=== PATIENT | male | born 1965 | race Caucasian/White ===

== ENCOUNTER → 2018-08-19 10:50 | Outpatient (CLI) | payer OTHER, SELFPAY ==
--- NOTE | 2018-08-19 10:52 | DI.RAD.S_ITS ---
PROCEDURE: XR CERVICAL SPINE 2V OR 3V INDICATIONS: neck pain, bilateral upper extremety numbness/weakness TECHNIQUE: 4 view(s) of the cervical spine were acquired. COMPARISON: None. FINDINGS: Bones: No fractures or dislocations to the C7 level. Levocurvature of the cervical spine noted. The lateral masses of C1 appear intact on the odontoid view. No suspicious bony lesions. Mild narrowing of the C4-C5 disc space. Straightening of the normal cervical lordosis. Diffuse mild facet arthropathy. Soft tissues: No prevertebral soft tissue swelling. Bilateral atheromatous carotid calcifications. IMPRESSION: Levocurvature and straightening of the normal cervical lordosis. Mild C4-C5 disc degeneration. Diffuse mild facet arthropathy. Dictated by: Kiet Mackenzie M.D. on 08/19/2018 at 12:53 Approved by: Kiet Mackenzie M.D. on 08/19/2018 at 12:55
== END ==
PROVIDERS: PCP Family Medicine; Visit Provider Family Medicine
DX: M50.321 Other cervical disc degeneration at C4-C5 level (principal); M47.812 Spondylosis without myelopathy or radiculopathy, cervical region; R20.0 Anesthesia of skin
CPT/HCPCS: 72040

== ENCOUNTER → 2018-08-27 09:27 | Outpatient (CLI) | payer OTHER, SELFPAY | PROVIDERS: PCP Family Medicine; Visit Provider Family Medicine | DX: M54.2 Cervicalgia (principal) | CPT/HCPCS: 95885; 95886; 95911 ==

== ENCOUNTER → 2018-08-28 09:46 | Outpatient (CLI) | payer OTHER, SELFPAY ==
--- NOTE | 2018-08-28 09:46 | DI.MRI.S_ITS ---
PROCEDURE: MR CERVICAL SPINE WO CON INDICATIONS: neck pain, numbness, weakness of both upper extremeties TECHNIQUE: Noncontrast sagittal T1 spin echo and T2 fast spin echo, sagittal STIR, foraminal oblique sagittal T2 fast spin echo, and axial gradient echo or T2 fast spin echo through the cervical spine. COMPARISON: [facility], CR, XR CERVICAL SPINE 2V OR 3V, 08/19/2018, 10:53. FINDINGS: Image quality: Excellent. Alignment and Curvature: There is straightening of cervical curvature; otherwise normal alignment. Bone Marrow: Marrow demonstrates normal overall signal. Spinal Cord: Visualized spinal cord has normal size and signal. No cerebellar tonsillar herniation. Paraspinous Soft Tissues: No paravertebral masses. Prevertebral soft tissues are normal in thickness. C2-C3: Normal appearance. C3-C4: Normal appearance. C4-C5: Mild loss of disc height and posterior disc bulge. The central canal is patent. Mild bilateral foraminal stenosis. C5-C6: Mild loss of disc height and disc desiccation. Circumferential disc bulge. The central canal is patent. No foraminal stenosis. C6-C7: Normal appearance. C7-T1: Normal appearance. IMPRESSION: 1. Mild degenerative disc disease in cervical spine. 2. No central canal stenosis. 3. Mild bilateral foraminal stenosis at L4-L5. Dictated by: Luly Donovan M.D. on 08/28/2018 at 16:34 Approved by: Luly Donovan M.D. on 08/28/2018 at 16:40
== END ==
PROVIDERS: PCP Family Medicine; Visit Provider Family Medicine
DX: M50.321 Other cervical disc degeneration at C4-C5 level (principal); M48.02 Spinal stenosis, cervical region; R20.0 Anesthesia of skin; M62.81 Muscle weakness (generalized)
CPT/HCPCS: 72141

== ENCOUNTER → 2018-10-22 10:16 | Outpatient (CLI) | payer OTHER, SELFPAY ==
[2018-10-22 11:07] LABS: Alanine Aminotransferase 30 IU/L (21-72); Albumin 4.7 g/dL (3.5-5.0); Albumin Globulin Ratio 1.4 (1.0-2.8); Alkaline Phosphatase 79 U/L (38-126); Aspartate Aminotransferase 25 IU/L (17-59); BUN Creatinine Ratio 14.4 (6-22); Bilirubin Total 0.5 mg/dL (0.2-1.3); Blood Urea Nitrogen 13 mg/dL (9-20); C-Reactive Protein Quant 0.9 mg/dL (<1.0); Calcium 9.7 mg/dL (8.4-10.2); Carbon Dioxide 29 mmol/L (22-32); Chloride 102 mmol/L (98-107); Cholesterol 290 mg/dL (140-199); Estimated Glomerular Filt Rate > 60.0 mL/min (>60); Globulin 3.4 g/dL (1.7-4.1); Glucose 100 mg/dL (70-100); HDL Cholesterol 31 mg/dL (40-60); HEMOLYSIS < 15 (0-50); LDL Cholesterol Calculated 227 mg/dL (<100); Potassium 4.4 mmol/L (3.4-5.1); Sodium 142 mmol/L (137-145); Total Protein 8.1 g/dL (6.3-8.2); Triglycerides 161 mg/dL (35-150); Uric Acid 6.9 mg/dL (3.5-8.5)
[2018-10-22 11:10] LABS: Rheumatoid Factor < 8.6 IU/mL (<12.0)
[2018-10-22 11:11] LABS: Erythrocyte Sedimentation Rate 6 MM/HR (0-15)
[2018-10-22 11:12] LABS: Add Manual Diff / Slide Review NO; Basophils Absolute Auto 0 /uL (0-100); Basophils Percent Auto 0.4 % (0-2); Eosinophils Absolute Auto 200 /uL (0-450); Eosinophils Percent Auto 2.1 % (2-4); Hematocrit 48.5 % (41-53); Hemoglobin 16.7 g/dL (13.5-17.5); Lymphocytes Absolute Auto 2200 /uL (1100-4500); Lymphocytes Percent Auto 19.7 % (25-40); Mean Corpuscular HGB Conc 34.5 % (30-36); Mean Corpuscular Hemoglobin 30.7 PG (26-34); Monocytes Absolute Auto 1000 /uL (0-900); Monocytes Percent Auto 8.9 % (3-14); Neutrophils Absolute Auto 7600 /uL (1500-7000); Neutrophils Percent Auto 68.9 % (50-75); Platelet Count 279 X10^3/uL (150-400); Red Blood Cell Count 5.44 X10^6/uL (4.5-5.9); Red Cell Distribution Width 14.1 % (11.6-14.8)
[2018-10-22 11:32] LABS: Thyroid Stimulating Hormone 1.05 uIU/mL (0.47-4.68)
[2018-10-22 11:34] LABS: Prostate Specific Antigen Scrn 1.61 ng/mL (0.1-4.0)
== END ==
PROVIDERS: PCP Family Medicine; Visit Provider Family Medicine
DX: E78.5 Hyperlipidemia, unspecified (principal); Z12.5 Encounter for screening for malignant neoplasm of prostate; Z13.0 Encounter for screening for diseases of the blood and blood-forming organs and certain disorders involving the immune mechanism; Z13.29 Encounter for screening for other suspected endocrine disorder; Z13.21 Encounter for screening for nutritional disorder; K51.018 Ulcerative (chronic) pancolitis with other complication
CPT/HCPCS: 36415; 80053; 80061; 84443; 84550; 85025; 85651; 86140; 86430; G0103

== ENCOUNTER 2019-01-16 20:03 | Observation (INO) | payer OTHER, SELFPAY ==
[2019-01-16] VITALS (7 sets, daily range): BP systolic 116–168; BP diastolic 87–103; PULSE 70–99; RESP 14–22; TEMP 36.5–36.8; O2SAT 93–99; BMI 30.8
--- NOTE | 2019-01-16 20:22 | DI.CT.S_ITS ---
PROCEDURE: CT HEAD/BRAIN WO CON INDICATIONS: cva TECHNIQUE: Noncontrast 4.5 mm thick angled axial sections acquired from the foramen magnum to the vertex, with coronal and sagittal reformats. For radiation dose reduction, the following was used: automated exposure control, adjustment of mA and/or kV according to patient size. COMPARISON: None. FINDINGS: Image quality: Excellent. CSF spaces: Basal cisterns are patent. No extra-axial fluid collections. Ventricles are normal in size and shape. Brain: No midline shift. No intracranial masses or hemorrhage. Vargas-white matter interface is normal. Skull and face: Calvarium and visualized facial bones are intact, without suspicious lesions. Sinuses: Visualized sinuses and mastoids are clear. IMPRESSION: No acute intracranial abnormality. These findings were discussed with the referring provider Dr. Jarod Berger by telephone by Dr. Gudino at 8:43 PM on 01/16/2019. Dictated by: Rikki Gudino M.D. on 01/16/2019 at 20:41 Approved by: Rikki Gudino M.D. on 01/16/2019 at 20:48
--- NOTE | 2019-01-16 20:23 | DI.CT.S_ITS ---
PROCEDURE: CT ANGIO HEAD AND NECK INDICATIONS: cva TECHNIQUE: Pre-contrast 4.5 mm thick sections acquired from the foramen magnum to the vertex. After the administration of intravenous contrast, 1 mm thick sections acquired from the aortic arch through the [place]. Post-contrast 4.5 mm thick sections then re-acquired from the foramen magnum to the vertex. 3-dimensional [id number]-[id number] (MIP) and/or volume rendering reformats were acquired of the central intracranial vasculature and neck separately. COMPARISON: [facility], CT, CT HEAD/BRAIN WO CON, 01/16/2019, 20:15. FINDINGS: Image quality: Excellent. BRAIN: CSF spaces: Ventricles are normal in size and shape. Basal cisterns are patent. No extra-axial fluid collections. Brain: No midline shift. No intracranial bleeds or masses. Vargas-white matter interface appears intact. Skull and face: Calvarium and facial bones appear intact, without suspicious lesions. Orbits appear normal. Sinuses: Bilateral maxillary sinus mucous thickening. HEAD CT ANGIOGRAPHY: Anterior circulation: Intracranial internal carotid arteries are normal in size and flow. The flow within the paired anterior cerebral arteries is normal and symmetric. The flow within the middle cerebral arteries is normal and symmetric. The anterior communicating artery is seen. No aneurysms are seen. There is calcified plaque of the intracranial vasculature. Posterior circulation: Visualized portions of the vertebral arteries demonstrate normal caliber, and join to form a normal appearing basilar artery. The right posterior cerebral artery receives the majority of its blood flow from the right posterior communicating artery, with the P1 segment of the right posterior commuting artery (from the basilar artery) being diminutive in size. Flow within the posterior cerebral arteries is otherwise normal and symmetric. No aneurysms are seen. There is calcified plaque of the intracranial vasculature. NECK CT ANGIOGRAPHY: Carotid system: The great vessels demonstrate a conventional anatomy as they arise from the aortic arch. The origins of the common carotid arteries appear patent. The common carotid arteries demonstrate normal caliber and courses. The bifurcation regions are both widely patent but demonstrate calcified and noncalcified plaque. The internal carotid arteries demonstrate normal calibers and courses. Posterior circulation: The origins of the vertebral arteries both appear widely patent. The more superior extracranial portions of both vertebral arteries also demonstrate normal courses and calibers. They join to form a normal appearing basilar artery. Soft tissues: Bilateral dependent atelectasis with upper lobe emphysematous changes. No pneumothorax. There is a 2.0 cm hypoattenuating left thyroid nodule. Bones: Mild multilevel degenerative changes of the cervical spine. IMPRESSION: 1. No acute intracranial abnormality. 2. The right posterior cerebral artery receives the majority of its blood flow from the right posterior communicating artery, with the P1 segment of the right posterior cerebral artery (arising from the basilar artery) being diminutive in size. Otherwise, no aneurysms, stenoses, or occlusions of the intracranial vasculature noted. 3. No aneurysms, stenoses, or occlusions of the cervical carotid and vertebral arteries noted. 4. 2.0 cm left thyroid nodule. Recommend followup thyroid ultrasound for further evaluation. Any quantitative measurements of stenosis were performed using NASCET criteria. Dictated by: Rikki Gudino M.D. on 01/16/2019 at 22:09 Approved by: Rikki Gudino M.D. on 01/16/2019 at 22:26
[2019-01-16 20:41] LABS: Add Manual Diff / Slide Review NO; Basophils Absolute Auto 0 /uL (0-100); Basophils Percent Auto 0.2 % (0-2); Eosinophils Absolute Auto 300 /uL (0-450); Eosinophils Percent Auto 3.1 % (2-4); Hematocrit 45.5 % (41-53); Hemoglobin 15.6 g/dL (13.5-17.5); Lymphocytes Absolute Auto 3000 /uL (1100-4500); Lymphocytes Percent Auto 29.8 % (25-40); Mean Corpuscular HGB Conc 34.3 % (30-36); Mean Corpuscular Hemoglobin 30.1 PG (26-34); Mean Corpuscular Volume 87.7 fL (80-100); Monocytes Absolute Auto 1100 /uL (0-900); Monocytes Percent Auto 11.2 % (3-14); Neutrophils Absolute Auto 5700 /uL (1500-7000); Neutrophils Percent Auto 55.7 % (50-75); Platelet Count 273 X10^3/uL (150-400); Red Blood Cell Count 5.19 X10^6/uL (4.5-5.9); Red Cell Distribution Width 14.3 % (11.6-14.8); White Blood Cell Count 10.1 X10^3/uL (4.5-11.0)
[2019-01-16] MEDS: SODIUM CHLORIDE 0.9% 1,000 ML 150 ML IV (20:52)
[2019-01-16] MEDS: ASPIRIN 81 MG TAB 324 MG PO (20:52)
[2019-01-16 20:54] LABS: BUN Creatinine Ratio 16.3 (6-22); Blood Urea Nitrogen 13 mg/dL (9-20); Calcium 9.3 mg/dL (8.4-10.2); Carbon Dioxide 25 mmol/L (22-32); Chloride 104 mmol/L (98-107); Estimated Glomerular Filt Rate > 60.0 mL/min (>60); Glucose 98 mg/dL (70-100); HEMOLYSIS 33 (0-50); Sodium 139 mmol/L (137-145)
[2019-01-16 21:25] LABS: Prothrombin Time 11.2 SECONDS (10.1-12.7)
--- NOTE | 2019-01-16 21:27 | PC.NURSE ---
steady gate whem ambulateing to restroom
[2019-01-16 21:28] LABS: PTT Partial Thromboplastin Tim 31 SECONDS (26.4-36.2)
--- NOTE | 2019-01-16 21:29 | PC.NURSE ---
Pt states I don't have double vision anymore, my eyes just feel heavy, it's hard to explain. Provider notified and went to pt room.
[2019-01-16 21:38] LABS: Urine Amphetamines Negative (Negative); Urine Barbiturates Negative (Negative); Urine Benzodiazepines Negative (Negative); Urine Cocaine Negative (Negative); Urine MDMA Negative (Negative); Urine Methadone Negative (Negative); Urine Methamphetamines Negative (Negative); Urine Morphine/Opi cutoff 2000 Negative (Negative); Urine Oxycodone Negative (Negative); Urine Phencyclidine Negative (Negative); Urine Tetrahydrocannabinol Negative (Negative); Urine Tricyclic Antidepressant Negative (Negative)
[2019-01-16 21:57] LABS: Appearance Urine UA CLEAR; Bacteria Urine None Seen; Bilirubin Urine UA NEGATIVE (NEGATIVE); Color Urine UA YELLOW; Glucose Urine UA NEGATIVE (Negative); Ketones Urine UA NEGATIVE (NEGATIVE); Leukocyte Esterase Urine UA NEGATIVE (NEGATIVE); Nitrite Urine UA NEGATIVE (Negative); Occult Blood Urine UA NEGATIVE (Negative); Protein Urine UA NEGATIVE (Negative); RBC Urine None Seen (0-5/HPF); Specific Gravity Urine UA <=1.005 (1.000-1.035); Urobilinogen Urine UA 0.2 E.U./dL (0.2); pH Urine UA 6.5 (4.5-8.0)
[2019-01-16 22:02] LABS: WBC Urine 0-1/HPF (0-5/HPF)
[2019-01-16 22:03] LABS: Culture Indicated Urine Cult Not Indicated; Urine Comments Microscopic Normal
--- NOTE | 2019-01-16 23:31 | DI.ECHO.S_ITS ---
[facility] +---------+ [facility] +---------+ : : [address] [place] : : : : [id number] : : : : Phone: [phone]+ Echocardiogram Report + + :Name: ARIANNA VIDAL Study Date: 01/17/2019 Height: 67 in : :[facility] Exam Location: IS Weight: 196 lb : : Gender: Male BSA: 2.0 m2 : :: 1965 Age: 53 yrs BP: 116/91 mmHg: :Reason For Study: Stroke : :Ordering Physician: Puja : :Hospitalist Performed By: Nory Page : :Referring: WENDY NAGY : + + Interpretation Summary 1) Normal left ventriuclar size, thickness, wall motion, and systolic function (EF 55-60%). 2) Normal right ventricular size and function. 3) No significant valvular abnormalities. 4) Injection of contrast documented an interatrial shunt. 5) No prior Ecoh available for comparison. If the patient truly had a cryptogenic TIA or CVA, recommend cardiology consult for NATALIO and PFO closure. Procedure: A two-dimensional transthoracic echocardiogram with color flow and Doppler was performed. The study quality was technically adequate. There is no prior echocardiogram noted for this patient. A saline contrast injection was performed to assess for cardiac shunting. The patient was in normal sinus rhythm during the exam. The patient had occasional PVCs during the exam. The patient had occasional PACs during the exam. Left Ventricle: The left ventricle is normal in size. There is normal left ventricular wall thickness. The ejection fraction is estimated to be 55-60%. Left ventricular systolic function is normal. There are no focal wall motion abnormalities. Diastolic parameters suggest probable normal left ventricular diastolic function and normal filling pressures. Right Ventricle: The right ventricle is normal in size and function. Atria: The left atrium is moderately dilated. Right atrial size is normal. Injection of contrast documented an interatrial shunt. Mitral Valve: The mitral valve is normal in structure and function. There is trace mitral regurgitation. Aortic Valve: The aortic valve is trileaflet. The aortic valve opens well. There is no aortic valve stenosis. No aortic regurgitation is present. Tricuspid Valve: The tricuspid valve is normal in structure and function. There is trace tricuspid regurgitation. The right ventricular systolic pressure is estimated to be at least 24 mmHg based on an estimated right atrial pressure of 8 mm Hg. Pulmonic Valve: The pulmonic valve is not well seen, but is grossly normal. There is a trace or physiologic amount of pulmonic regurgitation. Great Vessels: The aortic root is normal size. The ascending aorta is at the upper limits of normal in size. The pulmonary artery is not well visualized, but is probably normal size. The IVC is dilated (diameter is greater than 2.1 cm) yet it collapses greater than 50% with a sniff. This suggests a right atrial pressure of 8 mm Hg. Pericardium/ Pleura There is no pericardial effusion. There is no pleural effusion. MMode/2D Measurements & Calculations LVIDd: 4.9 cm LVOT diam: 2.3 cm LVIDs: 3.1 cm Ao root diam: 3.3 cm FS: 36.7 % asc Aorta Diam: 3.4 cm EPSS: 0.50 cm IVSd: 0.84 cm LVPWd: 0.75 cm LV jeffries. diameter/BSA (cm/m^2): 2.4 LV sys. diameter/BSA (cm/m^2): 1.5 LA A2 area: 26.9 cm2 RA long axis: 5.4 cm LA A4 area: 20.4 cm2 RA area: 19.4 cm2 LA length (vol): 5.7 cm RA vol: 59.2 ml LA vol: 81.7 ml RA : 29.5 ml/m2 LA vol index: 40.8 ml/m2 IVC diam: 2.5 cm RVD1 (basal): 3.8 cm RVD2 (mid): 3.2 cm TAPSE: 2.2 cm Doppler Measurements & Calculations Ao V2 max: 141.8 cm/sec LVOT Max Saúl: 86.8 cm/sec Ao V2 mean: 105.5 cm/sec LV V1 max P.0 mmHg Ao max P.0 mmHg LV V1 VTI: 16.8 cm Ao mean P.7 mmHg KIANA(I,D): 2.7 cm2 Ao V2 VTI: 26.5 cm KIANA(V,D): 2.6 cm2 sev ratio: 0.63 KIANA indexed to BSA (cm^2/m^2): 1.3 MV E max saúl: 60.8 cm/sec TR max saúl: 201.8 cm/sec MV A max saúl: 53.9 cm/sec TR max P.3 mmHg MV E/A: 1.1 PA V2 max: 75.7 cm/sec Med Peak E' Saúl: 8.6 cm/sec PA V2 mean: 56.3 cm/sec E/E' med: 7.1 PA mean P.3 mmHg Lat Peak E' Saúl: 12.7 cm/sec PA Accel Time: 0.08 sec E/E' lat: 4.8 E/e' average: 5.9 MV dec time: 0.24 sec MV P1/2t: 70.4 msec MV P1/2t max saúl: 59.5 cm/sec SV(LVOT): 70.7 ml MVA(P1/2t): 3.1 cm2 Reading Physician:03:17 PM
[2019-01-17] MEDS: SODIUM CHLORIDE 0.9% 1,000 ML 150 ML IV ×2 (00:19→07:00)
--- NOTE | 2019-01-17 01:30 | ED.NEUROSD ---
HPI - Neuro Symptoms/Deficit General Chief Complaint: Neuro Symptoms/Deficit Stated Complaint: double vision about an hour Time Seen by Provider: 01/16/19 20:23 Source: patient and EMS Mode of arrival: EMS Limitations: no limitations History of Present Illness HPI Narrative: 53-year-old male smoker with history of hypertension presents by EMS for evaluation of double vision which started about 1 hour ago at 7:15 p.m. patient is activated as code stroke and taken directly to CT given the presence of neurologic symptoms 1 hour from time of onset. Further questioning would suggest the patient has had multiple episodes over the past week or 2 where his right hand, and perhaps both have felt a bit clumsy and he has dropped items. Currently he feels none of the symptoms. He denies recent injury nor fever or chills. He denies any trouble with blurring of vision, trouble with speech, finding words or definite weakness of his extremities. Onset (ago): minute(s) Last Observed Normal: 19:15 Timing confirmed by: spouse and family member Location: other History of same: No Severity: mild Context: sudden onset On Anticoagulants: No Treatments Prior to Arrival: none Related Data Home Medications Medication Instructions Recorded Confirmed No Known Home Medications 01/16/19 01/16/19 Allergies Allergy/AdvReac Type Severity Reaction Status Date / Time azathioprine [From IMURAN] Allergy Unknown Verified 01/16/19 20:51 tetracycline [TETRACYCLINE] Allergy Unknown Verified 01/16/19 20:51 Review of Systems Constitutional Denies chills, Denies fever(s), Denies lethargy and Denies weakness Eyes Reports change in vision, Denies eye discharge, Denies irritation and Denies loss of vision ENT Ears, Nose, Mouth, and Throat: Denies change in voice, Denies neck pain and Denies sore throat Cardiovascular Denies chest pain, Denies irregular heart rhythm, Denies lightheadedness, Denies palpitations, Denies dyspnea, Denies dyspnea on exertion and Denies orthopnea Respiratory Denies cough, Denies dyspnea, Denies dyspnea on exertion and Denies wheezing Gastrointestinal Gastrointestinal: Denies abdominal pain, Denies change in bowel habits, Denies diarrhea, Denies nausea and Denies vomiting Genitourinary Denies hematuria, Denies flank pain, Denies urinary incontinence and Denies urinary urgency Musculoskeletal Denies neck pain Integumentary/Breasts Denies pruritus, Denies erythema, Denies rash and Denies wounds Neurologic Denies confusion, Reports lack of coordination (Of bilateral hands), Denies loss of vision and Denies weakness Psychiatric Denies anxiety, Denies confusion, Denies depression, Denies homicidal ideation and Denies suicidal ideation Endocrine Denies palpitations Hematologic/Lymphatic Denies easy bruising Allergic/Immunologic Denies wheezing PFSH Social History household members: spouse Smoking Status: Current every day smoker Social History household members: spouse Smoking Status: Current every day smoker Exam Narrative Exam Narrative: GENERAL: 53-year-old male appears stated age, in no significant distress HEAD: Atraumatic. Normocephalic. No temporal or scalp tenderness. EYES: Pupils equal round and reactive. Extraocular motions intact. No scleral icterus. No injection or drainage. ENT: Nose without bleeding, purulent drainage or septal hematoma. Throat without erythema, tonsillar hypertrophy or exudate. Uvula midline. Airway patent. NECK: Trachea midline. No JVD or lymphadenopathy. Supple, nontender, no meningeal signs. CARDIOVASCULAR: Regular rate and rhythm without murmurs, gallops, or rubs. RESPIRATORY: Clear to auscultation. Breath sounds equal bilaterally. No wheezes, rales, or rhonchi. GASTROINTESTINAL: Abdomen soft, non-tender, nondistended. No hepato-splenomegaly, or palpable masses. No guarding. EXTREMITIES: No clubbing, cyanosis, or edema. No joint tenderness, effusion, or edema noted. BACK: Nontender without deformity or crepitance. No flank tenderness. NEURO: AOx3. SKIN: No rash or erythema. NIH Stroke Scale 1a. LOC: Patient is alert and keenly responsive (0) 1b. LOC Questions: Patient answers both LOC questions accurately (0) 1c. LOC Commands: Patient performs both tasks correctly (0) 2. Best Gaze: Normal (0) 3. Visual: No visual loss (0) 4. Facial palsy: Normal symmetrical movements (0) 5. Motor arm: No drift (0) 6. Motor leg: No drift (0) 7. Limb ataxia: Absent (0) 8. Sensory: Normal (0) 9. Best language: No aphasia; normal (0) 10. Dysarthria: Normal (0) 11. Extinction and inattention: No abnormality (0) NIHSS: 0 Initial Vital Signs Initial Vital Signs: Vital Signs Temperature 98.2 F 01/16/19 20:06 Pulse Rate 99 H 01/16/19 20:06 Respiratory Rate 20 01/16/19 20:06 Blood Pressure 168/103 H 01/16/19 20:06 Pulse Oximetry 97 01/16/19 20:06 Scores NIH Stroke Scale Level of Conciousness: Alert, keenly responsive Ask month/age: Answers both questions correctly. Open/close eyes, close hand: Performs both tasks correctly Best gaze horizontal: Normal Visual patterson: No visual loss Facial palsy: Normal symetrical movement Left arm drift: No drift for full 10 sec Right arm drift: No drift for full 10 sec Left leg drift: No drift for full 10 sec Right leg drift: No drift for full 10 sec Limb ataxia: Absent Sensory on face/arms/legs: Normal, no sensory loss Best language: No aphasia, normal Dysarthria: Normal Extinction or inattention: No abnormality Total NIH Stroke scale score: 0 Course Orders Ordered: ED Orders 01/16/19 20:22 CT head/brain wo con Stat 01/16/19 20:23 CT angio head and neck Stat 01/16/19 20:25 Basic Metabolic Panel Stat Complete Blood Count AUTO DIFF Stat Partial Thromboplastin Time Stat Prothrombin Time INR Stat 01/16/19 20:29 EKG-12 Lead Stat 01/16/19 21:27 UA Complete [Urinalysis and Microscopic] Stat Urine Drug Screen, Rapid Stat 01/16/19 23:31 EC echo doppler complete Stat 01/17/19 07:00 MR stroke Stat Sodium Chloride (Normal Saline 0.9%) 1,000 mls @ 150 mls/hr IV CONT SEVERIANO Last Admin: 01/17/19 00:19 Dose: 150 mls/hr Infusion: 01/16/19 23:37 Dose: 0 mls/hr Admin: 01/16/19 20:52 Dose: 150 mls/hr Discontinued Medications Aspirin (Aspirin Chew) 324 mg PO NOW ONE Stop: 01/16/19 20:49 Last Admin: 01/16/19 20:52 Dose: 324 mg Reevaluation(s) Reevaluation #1: patient reports no ongoing symptoms Consultations Consultation #1: upon completion of labs and imaging call was placed to [place] stroke team. After discussing the patient's presentation today as well as the involvement of episodic upper extremity troubles we quickly agree that patient will require admission for the complete stroke evaluation including stroke MRI and echocardiogram tomorrow. Consultation #2: Dr. Cadet happy to accept patient on her service Vital Signs - 8 hr 01/16/19 20:06 01/16/19 21:00 01/16/19 21:13 Temperature 98.2 F Pulse Rate 99 H 84 85 Respiratory Rate 20 17 18 Blood Pressure 168/103 H Blood Pressure [Left Arm] 130/87 130/87 Pulse Oximetry 97 94 98 01/16/19 22:00 01/16/19 22:30 01/16/19 23:18 Temperature Pulse Rate 78 78 77 Respiratory Rate 22 19 14 Blood Pressure Blood Pressure [Left Arm] 124/90 140/92 H 140/97 H Pulse Oximetry 95 93 99 01/16/19 23:40 Temperature 97.7 F Pulse Rate 70 Respiratory Rate 18 Blood Pressure 116/91 H Blood Pressure [Left Arm] Pulse Oximetry 96 MDM - Neuro Symptoms/Deficit Medical Records Attestation: I reviewed the patient's medical records. Lab Data Attestation: I reviewed the patient's lab results. Result diagrams: 01/16/19 20:25 01/16/19 20:25 Lab Results 01/16/19 01/16/19 01/16/19 Range/Units 20:25 20:25 20:25 WBC 10.1 (4.5-11.0) X10^3/uL RBC 5.19 (4.5-5.9) X10^6/uL Hgb 15.6 (13.5-17.5) g/dL Hct 45.5 (41-53) % MCV 87.7 (80-100) fL MCH 30.1 (26-34) PG MCHC 34.3 (30-36) % RDW 14.3 (11.6-14.8) % Plt Count 273 (150-400) X10^3/uL Neut % (Auto) 55.7 (50-75) % Lymph % (Auto) 29.8 (25-40) % [place] % (Auto) 11.2 (3-14) % Eos % (Auto) 3.1 (2-4) % Baso % (Auto) 0.2 (0-2) % Neut # (Auto) 5700 (4999-2703) /uL Lymph # (Auto) 3000 (4968-8389) /uL [place] # (Auto) 1100 H (0-900) /uL Eos # (Auto) 300 (0-450) /uL Baso # (Auto) 0 (0-100) /uL PT 11.2 (10.1-12.7) SECONDS INR 1.0 (0.9-1.3) APTT 31 (26.4-36.2) SECONDS Sodium 139 (137-145) mmol/L Potassium 4.0 (3.4-5.1) mmol/L Chloride 104 (98-107) mmol/L Carbon Dioxide 25 (22-32) mmol/L BUN 13 (9-20) mg/dL Creatinine 0.80 (0.66-1.25) mg/dL Estimated GFR > 60.0 (>60) mL/min BUN/Creatinine Ratio 16.3 (6-22) Glucose 98 (70-100) mg/dL Calcium 9.3 (8.4-10.2) mg/dL Urine Color Urine Appearance Urine pH (4.5-8.0) Ur Specific [place] (1.000-1.035) Urine Protein (Negative) Urine Glucose (UA) (Negative) g/dL Urine Ketones (NEGATIVE) Urine Occult Blood (Negative) Urine Nitrate (Negative) Urine Bilirubin (NEGATIVE) Urine Urobilinogen (0.2) E.U./dL Ur Leukocyte Esterase (NEGATIVE) Urine RBC (0-5/HPF) Urine WBC (0-5/HPF) Urine Bacteria (None) Ur Culture Indicated? Micro UA Comment Urine Opiates Screen (Negative) Ur Oxycodone Screen (Negative) Urine Methadone Screen (Negative) Ur Barbiturates Screen (Negative) U Tricyclic Antidepress (Negative) Ur Phencyclidine Scrn (Negative) Ur Amphetamines Screen (Negative) U Methamphetamines Scrn (Negative) Ur MDMA Scrn (Ecstasy) (Negative) U Benzodiazepines Scrn (Negative) Urine Cocaine Screen (Negative) U Marijuana (THC) Screen (Negative) 01/16/19 01/16/19 Range/Units 21:27 21:27 WBC (4.5-11.0) X10^3/uL RBC (4.5-5.9) X10^6/uL Hgb (13.5-17.5) g/dL Hct (41-53) % MCV (80-100) fL MCH (26-34) PG MCHC (30-36) % RDW (11.6-14.8) % Plt Count (150-400) X10^3/uL Neut % (Auto) (50-75) % Lymph % (Auto) (25-40) % [place] % (Auto) (3-14) % Eos % (Auto) (2-4) % Baso % (Auto) (0-2) % Neut # (Auto) (4299-3971) /uL Lymph # (Auto) (8630-6213) /uL [place] # (Auto) (0-900) /uL Eos # (Auto) (0-450) /uL Baso # (Auto) (0-100) /uL PT (10.1-12.7) SECONDS INR (0.9-1.3) APTT (26.4-36.2) SECONDS Sodium (137-145) mmol/L Potassium (3.4-5.1) mmol/L Chloride (98-107) mmol/L Carbon Dioxide (22-32) mmol/L BUN (9-20) mg/dL Creatinine (0.66-1.25) mg/dL Estimated GFR (>60) mL/min BUN/Creatinine Ratio (6-22) Glucose (70-100) mg/dL Calcium (8.4-10.2) mg/dL Urine Color Yellow Urine Appearance Clear Urine pH 6.5 (4.5-8.0) Ur Specific [place] <=1.005 (1.000-1.035) Urine Protein Negative (Negative) Urine Glucose (UA) Negative (Negative) g/dL Urine Ketones Negative (NEGATIVE) Urine Occult Blood Negative (Negative) Urine Nitrate Negative (Negative) Urine Bilirubin Negative (NEGATIVE) Urine Urobilinogen 0.2 (0.2) E.U./dL Ur Leukocyte Esterase Negative (NEGATIVE) Urine RBC None seen (0-5/HPF) Urine WBC 0-1/hpf (0-5/HPF) Urine Bacteria None seen (None) Ur Culture Indicated? Cult not indicated Micro UA Comment Microscopic normal Urine Opiates Screen Negative (Negative) Ur Oxycodone Screen Negative (Negative) Urine Methadone Screen Negative (Negative) Ur Barbiturates Screen Negative (Negative) U Tricyclic Antidepress Negative (Negative) Ur Phencyclidine Scrn Negative (Negative) Ur Amphetamines Screen Negative (Negative) U Methamphetamines Scrn Negative (Negative) Ur MDMA Scrn (Ecstasy) Negative (Negative) U Benzodiazepines Scrn Negative (Negative) Urine Cocaine Screen Negative (Negative) U Marijuana (THC) Screen Negative (Negative) Imaging Data CT scan - head: Radiologist's impression: [place] [address] CT Scan Report Signed Patient: Phill Euceda GMR#: [id number] : 1965Acct:[id number] Age/Sex: 53 / MDate of Service: 01/16/19 Loc: ED Accession Number: [id number] Procedure: CT head/brain wo con Ordering Provider: Jarod Berger D.O. PROCEDURE: CT HEAD/BRAIN WO CON INDICATIONS: cva TECHNIQUE: Noncontrast 4.5 mm thick angled axial sections acquired from the foramen magnum to the vertex, with coronal and sagittal reformats. For radiation dose reduction, the following was used: automated exposure control, adjustment of mA and/or kV according to patient size. COMPARISON: None. FINDINGS: Image quality: Excellent. CSF spaces: Basal cisterns are patent. No extra-axial fluid collections. Ventricles are normal in size and shape. Brain: No midline shift. No intracranial masses or hemorrhage. Vargas-white matter interface is normal. Skull and face: Calvarium and visualized facial bones are intact, without suspicious lesions. Sinuses: Visualized sinuses and mastoids are clear. IMPRESSION: No acute intracranial abnormality. These findings were discussed with the referring provider Dr. Jarod Berger by telephone by Dr. Gudino at 8:43 PM on 01/16/2019. Dictated by: Rikki Gudino M.D. on 01/16/2019 at 20:41 Approved by: Rikki Gudino M.D. on 01/16/2019 at 20:48 Head CTA: Radiologist's impression: [address] [address] [address] Scan Report Signed Patient: Phill Euceda GMR#: [id number] : 1965Acct:[id number] Age/Sex: 53 / MDate of Service: 01/16/19 Loc: ED Accession Number: [id number] Procedure: CT angio head and neck Ordering Provider: Jarod Berger D.O. PROCEDURE: CT ANGIO HEAD AND NECK INDICATIONS: cva TECHNIQUE: Pre-contrast 4.5 mm thick sections acquired from the foramen magnum to the vertex. After the administration of intravenous contrast, 1 mm thick sections acquired from the aortic arch through the [place] of [place]. Post-contrast 4.5 mm thick sections then re-acquired from the foramen magnum to the vertex. 3-dimensional [id number] (MIP) and/or volume rendering reformats were acquired of the central intracranial vasculature and neck separately. COMPARISON: [facility], CT, CT HEAD/BRAIN WO CON, 01/16/2019, 20:15. FINDINGS: Image quality: Excellent. BRAIN: CSF spaces: Ventricles are normal in size and shape. Basal cisterns are patent. No extra-axial fluid collections. Brain: No midline shift. No intracranial bleeds or masses. Vargas-white matter interface appears intact. Skull and face: Calvarium and facial bones appear intact, without suspicious lesions. Orbits appear normal. Sinuses: Bilateral maxillary sinus mucous thickening. HEAD CT ANGIOGRAPHY: Anterior circulation: Intracranial internal carotid arteries are normal in size and flow. The flow within the paired anterior cerebral arteries is normal and symmetric. The flow within the middle cerebral arteries is normal and symmetric. The anterior communicating artery is seen. No aneurysms are seen. There is calcified plaque of the intracranial vasculature. Posterior circulation: Visualized portions of the vertebral arteries demonstrate normal caliber, and join to form a normal appearing basilar artery. The right posterior cerebral artery receives the majority of its blood flow from the right posterior communicating artery, with the P1 segment of the right posterior commuting artery (from the basilar artery) being diminutive in size. Flow within the posterior cerebral arteries is otherwise normal and symmetric. No aneurysms are seen. There is calcified plaque of the intracranial vasculature. NECK CT ANGIOGRAPHY: Carotid system: The great vessels demonstrate a conventional anatomy as they arise from the aortic arch. The origins of the common carotid arteries appear patent. The common carotid arteries demonstrate normal caliber and courses. The bifurcation regions are both widely patent but demonstrate calcified and noncalcified plaque. The internal carotid arteries demonstrate normal calibers and courses. Posterior circulation: The origins of the vertebral arteries both appear widely patent. The more superior extracranial portions of both vertebral arteries also demonstrate normal courses and calibers. They join to form a normal appearing basilar artery. Soft tissues: Bilateral dependent atelectasis with upper lobe emphysematous changes. No pneumothorax. There is a 2.0 cm hypoattenuating left thyroid nodule. Bones: Mild multilevel degenerative changes of the cervical spine. IMPRESSION: 1. No acute intracranial abnormality. 2. The right posterior cerebral artery receives the majority of its blood flow from the right posterior communicating artery, with the P1 segment of the right posterior cerebral artery (arising from the basilar artery) being diminutive in size. Otherwise, no aneurysms, stenoses, or occlusions of the intracranial vasculature noted. 3. No aneurysms, stenoses, or occlusions of the cervical carotid and vertebral arteries noted. 4. 2.0 cm left thyroid nodule. Recommend followup thyroid ultrasound for further evaluation. Any quantitative measurements of stenosis were performed using NASCET criteria. Dictated by: Rikki Gudino M.D. on 01/16/2019 at 22:09 Approved by: Rikki Gudino M.D. on 01/16/2019 at 22:26 Discharge Plan Departure Patient Disposition: Admitted as Observation Clinical Impression: TIA (transient ischemic attack) Discharge Date/Time: 01/16/19 23:40 Interventions: ED Discharge Assessment Last Done: 01/16/19 23:39 Admit Date/Time: 01/16/19 22:53 Admit Provider: Ainsley Cadet
--- NOTE | 2019-01-17 01:35 | ED_ITS ---
HPI - Neuro Symptoms/Deficit General Chief Complaint: Neuro Symptoms/Deficit Stated Complaint: double vision about an hour Time Seen by Provider: 01/16/19 20:23 Source: patient and EMS Mode of arrival: EMS Limitations: no limitations History of Present Illness HPI Narrative: 53-year-old male smoker with history of hypertension presents by EMS for evaluation of double vision which started about 1 hour ago at 7:15 p.m. patient is activated as code stroke and taken directly to CT given the presence of neurologic symptoms 1 hour from time of onset. Further questioning would suggest the patient has had multiple episodes over the past week or 2 where his right hand, and perhaps both have felt a bit clumsy and he has dropped items. Currently he feels none of the symptoms. He denies recent injury nor fever or c hills. He denies any trouble with blurring of vision, trouble with speech, finding words or definite weakness of his extremities. Onset (ago): minute(s) Last Observed Normal: 19:15 Timing confirmed by: spouse and family member Location: other History of same: No Severity: mild Context: sudden onset On Anticoagulants: No Treatments Prior to Arrival: none Related Data Home Medications Medication Instructions Recorded Confirmed No Known Home Medications 01/16/19 01/16/19 Allergies Allergy/AdvReac Type Severity Reaction Status Date / Time azathioprine [From IMURAN] Allergy Unknown Verified 01/16/19 20:51 tetracycline [TETRACYCLINE] Allergy Unknown Verified 01/16/19 20:51 Review of Systems Constitutional Denies chills, Denies fever(s), Denies lethargy and Denies weakness Eyes Reports change in vision, Denies eye discharge, Denies irritation and Denies loss of vision ENT Ears, Nose, Mouth, and Throat: Denies change in voice, Denies neck pain and Denies sore throat Cardiovascular Denies chest pain, Denies irregular heart rhythm, Denies lightheadedness, Denies palpitations, Denies dyspnea, Denies dyspnea on exertion and Denies orthopnea Respiratory Denies cough, Denies dyspnea, Denies dyspnea on exertion and Denies wheezing Gastrointestinal Gastrointestinal: Denies abdominal pain, Denies change in bowel habits, Denies diarrhea, Denies nausea and Denies vomiting Genitourinary Denies hematuria, Denies flank pain, Denies urinary incontinence and Denies urinary urgency Musculoskeletal Denies neck pain Integumentary/Breasts Denies pruritus, Denies erythema, Denies rash and Denies wounds Neurologic Denies confusion, Reports lack of coordination (Of bilateral hands), Denies loss of vision and Denies weakness Psychiatric Denies anxiety, Denies confusion, Denies depression, Denies homicidal ideation and Denies suicidal ideation Endocrine Denies palpitations Hematologic/Lymphatic Denies easy bruising Allergic/Immunologic Denies wheezing PFSH Social History household members: spouse Smoking Status: Current every day smoker Social History household members: spouse Smoking Status: Current every day smoker Exam Narrative Exam Narrative: GENERAL: 53-year-old male appears stated age, in no significant distress HEAD: Atraumatic. Normocephalic. No temporal or scalp tenderness. EYES: Pupils equal round and reactive. Extraocular motions intact. No scleral icterus. No injection or drainage. ENT: Nose without bleeding, purulent drainage or septal hematoma. Throat without erythema, tonsillar hypertrophy or exudate. Uvula midline. Airway patent. NECK: Trachea midline. No JVD or lymphadenopathy. Supple, nontender, no meningeal signs. CARDIOVASCULAR: Regular rate and rhythm without murmurs, gallops, or rubs. RESPIRATORY: Clear to auscultation. Breath sounds equal bilaterally. No wheezes, rales, or rhonchi. GASTROINTESTINAL: Abdomen soft, non-tender, nondistended. No hepato- splenomegaly, or palpable masses. No guarding. EXTREMITIES: No clubbing, cyanosis, or edema. No joint tenderness, effusion, or edema noted. BACK: Nontender without deformity or crepitance. No flank tenderness. NEURO: AOx3. SKIN: No rash or erythema. NIH Stroke Scale 1a. LOC: Patient is alert and keenly responsive (0) 1b. LOC Questions: Patient answers both LOC questions accurately (0) 1c. LOC Commands: Patient performs both tasks correctly (0) 2. Best Gaze: Normal (0) 3. Visual: No visual loss (0) 4. Facial palsy: Normal symmetrical movements (0) 5. Motor arm: No drift (0) 6. Motor leg: No drift (0) 7. Limb ataxia: Absent (0) 8. Sensory: Normal (0) 9. Best language: No aphasia; normal (0) 10. Dysarthria: Normal (0) 11. Extinction and inattention: No abnormality (0) NIHSS: 0 Initial Vital Signs Initial Vital Signs: Vital Signs Temperature 98.2 F 01/16/19 20:06 Pulse Rate 99 H 01/16/19 20:06 Respiratory Rate 20 01/16/19 20:06 Blood Pressure 168/103 H 01/16/19 20:06 Pulse Oximetry 97 01/16/19 20:06 Scores NIH Stroke Scale Level of Conciousness: Alert, keenly responsive Ask month/age: Answers both questions correctly. Open/close eyes, close hand: Performs both tasks correctly Best gaze horizontal: Normal Visual patterson: No visual loss Facial palsy: Normal symetrical movement Left arm drift: No drift for full 10 sec Right arm drift: No drift for full 10 sec Left leg drift: No drift for full 10 sec Right leg drift: No drift for full 10 sec Limb ataxia: Absent Sensory on face/arms/legs: Normal, no sensory loss Best language: No aphasia, normal Dysarthria: Normal Extinction or inattention: No abnormality Total NIH Stroke scale score: 0 Course Orders Ordered: ED Orders 01/16/19 20:22 CT head/brain wo con Stat 01/16/19 20:23 CT angio head and neck Stat 01/16/19 20:25 Basic Metabolic Panel Stat Complete Blood Count AUTO DIFF Stat Partial Thromboplastin Time Stat Prothrombin Time INR Stat 01/16/19 20:29 EKG-12 Lead Stat 01/16/19 21:27 UA Complete [Urinalysis and Microscopic] Stat Urine Drug Screen, Rapid Stat 01/16/19 23:31 EC echo doppler complete Stat 01/17/19 07:00 MR stroke Stat Sodium Chloride (Normal Saline 0.9%) 1,000 mls @ 150 mls/hr IV CONT SEVERIANO Last Admin: 01/17/19 00:19 Dose: 150 mls/hr Infusion: 01/16/19 23:37 Dose: 0 mls/hr Admin: 01/16/19 20:52 Dose: 150 mls/hr Discontinued Medications Aspirin (Aspirin Chew) 324 mg PO NOW ONE Stop: 01/16/19 20:49 Last Admin: 01/16/19 20:52 Dose: 324 mg Reevaluation(s) Reevaluation #1: patient reports no ongoing symptoms Consultations Consultation #1: upon completion of labs and imaging call was placed to [place] stroke team. After discussing the patient's presentation today as well as the involvement of episodic upper extremity troubles we quickly agree that patient will require admission for the complete stroke evaluation including stroke MRI and echocardiogram tomorrow. Consultation #2: Dr. Cadet happy to accept patient on her service Vital Signs - 8 hr 01/16/19 20:06 01/16/19 21:00 01/16/19 21:13 Temperature 98.2 F Pulse Rate 99 H 84 85 Respiratory Rate 20 17 18 Blood Pressure 168/103 H Blood Pressure [Left Arm] 130/87 130/87 Pulse Oximetry 97 94 98 01/16/19 22:00 01/16/19 22:30 01/16/19 23:18 Temperature Pulse Rate 78 78 77 Respiratory Rate 22 19 14 Blood Pressure Blood Pressure [Left Arm] 124/90 140/92 H 140/97 H Pulse Oximetry 95 93 99 01/16/19 23:40 Temperature 97.7 F Pulse Rate 70 Respiratory Rate 18 Blood Pressure 116/91 H Blood Pressure [Left Arm] Pulse Oximetry 96 MDM - Neuro Symptoms/Deficit Medical Records Attestation: I reviewed the patient's medical records. Lab Data Attestation: I reviewed the patient's lab results. Result diagrams: 01/16/19 20:25 01/16/19 20:25 Lab Results 01/16/19 01/16/19 01/16/19 Range/Units 20:25 20:25 20:25 WBC 10.1 (4.5-11.0) X10^3/uL RBC 5.19 (4.5-5.9) X10^6/uL Hgb 15.6 (13.5-17.5) g/dL Hct 45.5 (41-53) % MCV 87.7 (80-100) fL MCH 30.1 (26-34) PG MCHC 34.3 (30-36) % RDW 14.3 (11.6-14.8) % Plt Count 273 (150-400) X10^3/uL Neut % (Auto) 55.7 (50-75) % Lymph % (Auto) 29.8 (25-40) % [place] % (Auto) 11.2 (3-14) % Eos % (Auto) 3.1 (2-4) % Baso % (Auto) 0.2 (0-2) % Neut # (Auto) 5700 (8413-8982) /uL Lymph # (Auto) 3000 (1861-8715) /uL [place] # (Auto) 1100 H (0-900) /uL Eos # (Auto) 300 (0-450) /uL Baso # (Auto) 0 (0-100) /uL PT 11.2 (10.1-12.7) SECONDS INR 1.0 (0.9-1.3) APTT 31 (26.4-36.2) SECONDS Sodium 139 (137-145) mmol/L Potassium 4.0 (3.4-5.1) mmol/L Chloride 104 (98-107) mmol/L Carbon Dioxide 25 (22-32) mmol/L BUN 13 (9-20) mg/dL Creatinine 0.80 (0.66-1.25) mg/dL Estimated GFR > 60.0 (>60) mL/min BUN/Creatinine Ratio 16.3 (6-22) Glucose 98 (70-100) mg/dL Calcium 9.3 (8.4-10.2) mg/dL Urine Color Urine Appearance Urine pH (4.5-8.0) Ur Specific [place] (1.000-1.035) Urine Protein (Negative) Urine Glucose (UA) (Negative) g/dL Urine Ketones (NEGATIVE) Urine Occult Blood (Negative) Urine Nitrate (Negative) Urine Bilirubin (NEGATIVE) Urine Urobilinogen (0.2) E.U./dL Ur Leukocyte Esterase (NEGATIVE) Urine RBC (0-5/HPF) Urine WBC (0-5/HPF) Urine Bacteria (None) Ur Culture Indicated? Micro UA Comment Urine Opiates Screen (Negative) Ur Oxycodone Screen (Negative) Urine Methadone Screen (Negative) Ur Barbiturates Screen (Negative) U Tricyclic Antidepress (Negative) Ur Phencyclidine Scrn (Negative) Ur Amphetamines Screen (Negative) U Methamphetamines Scrn (Negative) Ur MDMA Scrn (Ecstasy) (Negative) U Benzodiazepines Scrn (Negative) Urine Cocaine Screen (Negative) U Marijuana (THC) Screen (Negative) 01/16/19 01/16/19 Range/Units 21:27 21:27 WBC (4.5-11.0) X10^3/uL RBC (4.5-5.9) X10^6/uL Hgb (13.5-17.5) g/dL Hct (41-53) % MCV (80-100) fL MCH (26-34) PG MCHC (30-36) % RDW (11.6-14.8) % Plt Count (150-400) X10^3/uL Neut % (Auto) (50-75) % Lymph % (Auto) (25-40) % [place] % (Auto) (3-14) % Eos % (Auto) (2-4) % Baso % (Auto) (0-2) % Neut # (Auto) (4043-7487) /uL Lymph # (Auto) (2213-5244) /uL [place] # (Auto) (0-900) /uL Eos # (Auto) (0-450) /uL Baso # (Auto) (0-100) /uL PT (10.1-12.7) SECONDS INR (0.9-1.3) APTT (26.4-36.2) SECONDS Sodium (137-145) mmol/L Potassium (3.4-5.1) mmol/L Chloride (98-107) mmol/L Carbon Dioxide (22-32) mmol/L BUN (9-20) mg/dL Creatinine (0.66-1.25) mg/dL Estimated GFR (>60) mL/min BUN/Creatinine Ratio (6-22) Glucose (70-100) mg/dL Calcium (8.4-10.2) mg/dL Urine Color Yellow Urine Appearance Clear Urine pH 6.5 (4.5-8.0) Ur Specific [place] <=1.005 (1.000-1.035) Urine Protein Negative (Negative) Urine Glucose (UA) Negative (Negative) g/dL Urine Ketones Negative (NEGATIVE) Urine Occult Blood Negative (Negative) Urine Nitrate Negative (Negative) Urine Bilirubin Negative (NEGATIVE) Urine Urobilinogen 0.2 (0.2) E.U./dL Ur Leukocyte Esterase Negative (NEGATIVE) Urine RBC None seen (0-5/HPF) Urine WBC 0-1/hpf (0-5/HPF) Urine Bacteria None seen (None) Ur Culture Indicated? Cult not indicated Micro UA Comment Microscopic normal Urine Opiates Screen Negative (Negative) Ur Oxycodone Screen Negative (Negative) Urine Methadone Screen Negative (Negative) Ur Barbiturates Screen Negative (Negative) U Tricyclic Antidepress Negative (Negative) Ur Phencyclidine Scrn Negative (Negative) Ur Amphetamines Screen Negative (Negative) U Methamphetamines Scrn Negative (Negative) Ur MDMA Scrn (Ecstasy) Negative (Negative) U Benzodiazepines Scrn Negative (Negative) Urine Cocaine Screen Negative (Negative) U Marijuana (THC) Screen Negative (Negative) Imaging Data CT scan - head: Radiologist's impression: [place] [address] CT Scan Report Signed Patient: Phill Euceda GMR#: [id number] : 1965Acct:[id number] Age/Sex: 53 / MDate of Service: 01/16/19 Loc: ED Accession Number: [id number] Procedure: CT head/brain wo con Ordering Provider: Jarod Berger D.O. PROCEDURE: CT HEAD/BRAIN WO CON INDICATIONS: cva TECHNIQUE: Noncontrast 4.5 mm thick angled axial sections acquired from the foramen magnum to the vertex, with coronal and sagittal reformats. For radiation dose reduction, the following was used: automated exposure control, adjustment of mA and/or kV according to patient size. COMPARISON: None. FINDINGS: Image quality: Excellent. CSF spaces: Basal cisterns are patent. No extra-axial fluid collections. Ventricles are normal in size and shape. Brain: No midline shift. No intracranial masses or hemorrhage. Vargas-white matter interface is normal. Skull and face: Calvarium and visualized facial bones are intact, without elder picious lesions. Sinuses: Visualized sinuses and mastoids are clear. IMPRESSION: No acute intracranial abnormality. These findings were discussed with the referring provider Dr. Jarod Berger by telephone by Dr. Gudino at 8:43 PM on 01/16/2019. Dictated by: Rikki Gudino M.D. on 01/16/2019 at 20:41 Approved by: Rikki Gudino M.D. on 01/16/2019 at 20:48 Head CTA: Radiologist's impression: [address] [address] [address] Scan Report Signed Patient: Phill Euceda GMR#: [id number] : 1965Acct:[id number] Age/Sex: 53 / MDate of Service: 01/16/19 Loc: ED Accession Number: [id number] Procedure: CT angio head and neck Ordering Provider: Jarod Berger D.O. PROCEDURE: CT ANGIO HEAD AND NECK INDICATIONS: cva TECHNIQUE: Pre-contrast 4.5 mm thick sections acquired from the foramen magnum to the vertex. After the administration of intravenous contrast, 1 mm thick sections acquired from the aortic arch through the [place] of [place]. Post-contrast 4.5 mm thick sections then re- acquired from the foramen magnum to the vertex. 3-dimensional ma boajz-vrxskfmkh-mqdqhukiao (MIP) and/or volume rendering reformats were acquired of the central intracranial vasculature and neck separately. COMPARISON: [facility], CT, CT HEAD/BRAIN WO CON, 01/16/2019, 20:15. FINDINGS: Image quality: Excellent. BRAIN: CSF spaces: Ventricles are normal in size and shape. Basal cisterns are patent. No extra-axial fluid collections. Brain: No midline shift. No intracranial bleeds or masses. Vargas-white matter interface appears intact. Skull and face: Calvarium and facial bones appear intact, without suspicious lesions. Orbits appear normal. Sinuses: Bilateral maxillary sinus mucous thickening. HEAD CT ANGIOGRAPHY: Anterior circulation: Intracranial internal carotid arteries are normal in size and flow. The flow within the paired anterior cerebral arteries is normal and symmetric. The flow within the middle cerebral arteries is normal and symmetric. The anterior communicating artery is seen. No aneurysms are seen. There is calcified plaque of the intracranial vasculature. Posterior circulation: Visualized portions of the vertebral arteries demonstrate normal caliber, and join to form a normal appearing basilar artery. The right posterior cerebral artery receives the majority of its blood flow from the right posterior communicating artery, with the P1 segment of the right posterior commuting artery (from the basilar artery) being diminutive in size. Flow within the posterior cerebral arteries is otherwise normal and symmetric. No aneurysms are seen. There is calcified plaque of the intracranial vasculature. NECK CT ANGIOGRAPHY: Carotid system: The great vessels demonstrate a conventional anatomy as they arise from the aortic arch. The origins of the common carotid arteries appear patent. The common carotid arteries demonstrate normal caliber and courses. The bifurcation regions are both widely patent but demonstrate calcified and noncalcified plaque. The i nternal carotid arteries demonstrate normal calibers and courses. Posterior circulation: The origins of the vertebral arteries both appear widely patent. The more superior extracranial portions of both vertebral arteries also demonstrate normal courses and calibers. They join to form a normal appearing basilar artery. Soft tissues: Bilateral dependent atelectasis with upper lobe emphysematous changes. No pneumothorax. There is a 2.0 cm hypoattenuating left thyroid nodule. Bones: Mild multilevel degenerative changes of the cervical spine. IMPRESSION: 1. No acute intracranial abnormality. 2. The right posterior cerebral artery receives the majority of its blood flow from the right posterior communicating artery, with the P1 segment of the right posterior cerebral artery (arising from the basilar artery) being diminutive in size. Otherwise, no aneurysms, stenoses, or occlusions of the intracranial vasculature noted. 3. No aneurysms, stenoses, or occlusions of the cervical carotid and vertebral arteries noted. 4. 2.0 cm left thyroid nodule. Recommend followup thyroid ultrasound for further evaluation. Any quantitative measurements of stenosis were performed using NASCET criteria. Dictated by: Rikki Gudino M.D. on 01/16/2019 at 22:09 Approved by: Rikki Gudino M.D. on 01/16/2019 at 22:26 Discharge Plan Departure Patient Disposition: Admitted as Observation Clinical Impression: TIA (transient ischemic attack) Discharge Date/Time: 01/16/19 23:40 Interventions: ED Discharge Assessment Last Done: 01/16/19 23:39 Admit Date/Time: 01/16/19 22:53 Admit Provider: Ainsley Cadet
--- NOTE | 2019-01-17 01:50 | PC.NURSE ---
Patient received to the floor at 2340. Pt came in walking with and son. Pt. denies pain, denies double vision which he came in to ER for. ER reported NIH of 0. Pt is on Tele: Normal sinus rhythm. AxO x 4. Pt resting comfortably. VSS. Pt is on NS at 150ml/hr. 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 BP 140/97, HR 78, R18, 95% RA. Pt has history of ulcerative colitis, and eats high protein low carb diet.
[2019-01-17 05:20] VITALS: BP 133/71; PULSE 86; RESP 18; TEMP 36.7; O2SAT 94
--- NOTE | 2019-01-17 07:00 | DI.MRI.S_ITS ---
PROCEDURE: MR STROKE Pre- and post-contrast brain MRI, non-contrast brain MR angiogram, pre- and postcontrast neck MR angiogram INDICATIONS: stroke TECHNIQUE: Brain: Noncontrast axial T1 spin echo, axial T2 fast spin echo, sagittal and axial FLAIR, coronal T2 fast spin echo, axial gradient echo, axial diffusion and ADC through the brain. After the administration of contrast, axial 3D VIBE of the cranial vasculature and brain. Brain MRA: Non-contrast 3-D time of flight MR angiogram, with multiple hvvniad-nlxdhosbh-mkcoqhhkhs (MIP) reformats performed. Neck MRA: Axial and sagittal TruFISP through the neck. Coronal dynamic MR angiogram during administration of contrast in the arterial and venous phases, with 3-dimenstional egcebdh-oojfpuotm-ngmtyqzeop (MIP) reformats constructed from subtraction images. COMPARISON: None. FINDINGS: Image quality: Excellent. BRAIN: CSF spaces: Ventricles are normal in size and shape. Basal cisterns are patent. No extra-axial fluid collections. Brain: No intracranial bleeds or mass effects. Vargas-white matter interface is normal. Diffusion weighted images show no acute ischemic insults. Brainstem appears normal. Normal intravascular flow voids are present. No abnormal intracranial enhancement. Skull and face: Calvarial marrow signal is normal. Orbits appear normal. Sinuses: Sinuses and mastoids are clear. BRAIN MR ANGIOGRAM: Anterior circulation: Intracranial internal carotid arteries, anterior cerebral arteries, and middle cerebral arteries are widely patent without hemodynamically significant stenosis, occlusion, or aneurysms. Posterior circulation: The visualized portions of the intracranial vertebral arteries are patent without hemodynamically significant stenoses, occlusions, or aneurysms. NECK MR ANGIOGRAM: Carotids: Great vessels demonstrate a conventional anatomy as they arise from the aortic arch. The origins of the common carotid arteries appear patent. The calibers and courses of both common carotid arteries are normal. The bifurcation regions appear normal bilaterally. The internal carotid arteries demonstrate normal course and caliber. Posterior circulation: The origins of the vertebral arteries appear patent. More superior portions of both vertebral arteries demonstrate normal course and caliber, and join to form the normal appearing basilar artery. Miscellaneous: Subclavian arteries appear patent. Pre-contrast images through the neck show no soft tissue abnormalities. IMPRESSION: BRAIN MRI: MRI brain without acute intracranial abnormalities or acute cerebral infarction. BRAIN MR ANGIOGRAM: Negative brain MR angiogram. NECK MR ANGIOGRAM: Negative carotid/neck MR angiogram. Dictated by: Erick Thompson M.D. on 01/17/2019 at 22:41 Approved by: Erick Thompson M.D. on 01/17/2019 at 22:48
[2019-01-17 08:00] VITALS: BP 137/96; PULSE 81; RESP 18; TEMP 36.9; O2SAT 94
--- NOTE | 2019-01-17 08:47 | CM.DANOTE ---
Addendum entered by Jeniffer Fisher LPN 01/17/19 16:02: Dr. Cadet did ok pt for d/c to home, his was here and he left with her. No concerns re d/c were noted. Pt will see his PCP in followup in 2 weeks. Original Note: Discharge Planning/Care Management DCP: assessment: case received, EMR reviewed. Pt is noted to be sitting up in bed and waiting for the physician to arrive. Pt is a 53 year old male who admitted last night to care of A physician team. PCP: Dr. Pabon. Dr. Cadet is expected to see pt today. Payer: [employer] Admission status: in review: per UR THERESA Burgos. ER physician did discuss pt's case with the [facility] Team and POC is unfolding accordingly. P: discuss case in Team Rounds. ? PT involvement (no OT is available today) Will be following prn to assist with d/c issues and options that may arise. Advanced directive, confirm from FAMILY Start: 01/17/19 00:12 Freq: Q24H Status: Active Protocol: Document 01/17/19 00:17 KLP (Rec: 01/17/19 00:17 KLP [id number]) Advance Directive, confirm on record Time 00:17 Person contacted Amy Euceda Copy received No Copy received No Advanced directive available on record No CM Discharge Assessment Start: 01/17/19 08:46 Freq: Status: Active Protocol: Document 01/17/19 08:46 ITV (Rec: 01/17/19 08:47 ITV [id number]) Discharge Planning Assessment Advance Directives? No History Provided By Patient Medical Record Prior Living Arrangements House Household Members spouse Review Status In Process Next Review Type Continued Stay Review
--- NOTE | 2019-01-17 10:03 | PM.HP.1 ---
History of Present Illness Date Patient Seen: 01/17/19 Time Patient Seen: 08:30 Chief complaint: double vision about an hour Narrative: Patient is a 53-year-old man with hyperlipidemia, tobacco abuse, and ulcerative colitis who presented with double vision. The patient reports that yesterday evening he suddenly developed double vision that did not resolve quickly. Due to the persistent symptoms, he came to the emergency department for evaluation. The patient reports that in total the double vision lasted for approximately 3 hours. In the ER, his symptoms resolved spontaneously. The patient denies any associated weakness, confusion, difficulty speaking, or facial droop. His was present with him the entire time, and also denies any associated symptoms. In the emergency room, stroke protocol was followed. Head CT showed no evidence of bleed, and CTA was also benign. Patient's NIH stroke scale was 0. Kinyarwanda was consulted, and recommended complete stroke workup. The patient does report that for the past several months he has intermittently had bilateral upper extremity weakness. He states this usually results in weakness in his hands with dropping of items sometimes. He also states that on occasion 4th and 5th fingers will become contracted and difficult to straighten. He has had MRI of his neck completed previously to determine if this was due to any cervical pathology. MRI was normal. The patient had previously been started on a statin medication for his hyperlipidemia by Dr. Pabon. He states that he ran out of the medication several weeks ago, and never had it refilled. Patient History Social History household members: spouse Smoking Status: Current every day smoker Family & Social History Social History: household members spouse Prior Living Arrangements House Safety & Behavioral: Feels Safe in Current Yes Environment Been Physically Hurt or No Threatened By a Person Suicidal Ideation Description None Suicide Plan Description No Plan Tobacco & Substance use: Tobacco type cigarettes Smoking Status Current every day smoker Smoking packs per day 1 alcohol intake frequency holiday/special occasion Substance Use Type does not use Meds Home Medications Medication Instructions Recorded Confirmed Type No Known Home Medications 01/16/19 01/16/19 History Allergies Allergy/AdvReac Type Severity Reaction Status Date / Time azathioprine [From IMURAN] Allergy Unknown Verified 01/16/19 20:51 tetracycline [TETRACYCLINE] Allergy Unknown Verified 01/16/19 20:51 Review of Systems Constitutional Constitutional: Denies chills, Denies fatigue, Denies fever(s), Denies frequent falls, Denies headache(s) and Denies weakness Eyes Eyes: Denies blurry vision, Reports double vision, Denies discharge, Denies floaters, Denies itchy eyes, Denies loss of peripheral vision, Denies loss of vision and Denies eye pain ENT Ears, Nose, Mouth, and Throat: No facial pain, No headache(s), No nasal congestion, No sinus pressure and No sore throat Cardiovascular Cardiovascular: Denies chest pain, Denies fainting, Denies irregular heart rhythm, Denies leg swelling, Denies lightheadedness and Denies shortness of breath Respiratory Respiratory: Denies cough, Denies dyspnea and Denies wheezing Gastrointestinal Gastrointestinal: Denies abdominal pain and Denies change in bowel habits Musculoskeletal Musculoskeletal: Denies numbness Neurologic Neurologic: Denies abnormal speech, Denies behavioral changes, Denies confusion, Denies syncope, Denies frequent falls, Denies headache(s), Denies lack of coordination, Denies focal weakness, Denies loss of vision, Denies memory loss, Denies numbness and Denies weakness Psychiatric Psychiatric: Denies behavioral changes, Denies confusion and Denies memory loss Endocrine Endocrine: Denies fatigue Allergic/Immunologic Allergic/Immunologic: Denies itchy eyes and Denies wheezing Exam Vital Signs (past 8 hours): - 01/17/19 05:20 01/17/19 08:00 Temperature 98.1 F 98.4 F Pulse Rate 86 81 Respiratory Rate 18 18 Blood Pressure 133/71 137/96 H Pulse Oximetry 94 94 Oxygen Delivery Method Room Air Oxygen Flow Rate 0 Narrative Exam Narrative: GEN - alert, cooperative and no distress HEENT - normocephalic and atraumatic, sclera white, moist mucus membranes, throat non-erythematous NECK - FROM, no adenopathy, no JVD HEART - RRR, S1, S2 normal, no S3 or S4, no murmurs LUNGS - symmetric chest rise, no accessory muscles, clear to auscultation bilaterally ABD - flat, nondistended, normal bowel sounds, soft, nontender EXT - no cyanosis, clubbing or edema SKIN - no rashes or suspicious lesions NEURO - alert and and oriented to person, place and situation, Muscle strength is 5/5 UE and LE, CN II-XII intact, no evidence visual impairment Objective Imaging CT scan - head: Radiologist's impression: PROCEDURE: CT HEAD/BRAIN WO CON INDICATIONS: cva TECHNIQUE: Noncontrast 4.5 mm thick angled axial sections acquired from the foramen magnum to the vertex, with coronal and sagittal reformats. For radiation dose reduction, the following was used: automated exposure control, adjustment of mA and/or kV according to patient size. COMPARISON: None. FINDINGS: Image quality: Excellent. CSF spaces: Basal cisterns are patent. No extra-axial fluid collections. Ventricles are normal in size and shape. Brain: No midline shift. No intracranial masses or hemorrhage. Vargas-white matter interface is normal. Skull and face: Calvarium and visualized facial bones are intact, without suspicious lesions. Sinuses: Visualized sinuses and mastoids are clear. IMPRESSION: No acute intracranial abnormality. These findings were discussed with the referring provider Dr. Jarod Berger by telephone by Dr. Gudino at 8:43 PM on 01/16/2019. Dictated by: Rikki Gudino M.D. on 01/16/2019 at 20:41 PROCEDURE: CT ANGIO HEAD AND NECK INDICATIONS: cva TECHNIQUE: Pre-contrast 4.5 mm thick sections acquired from the foramen magnum to the vertex. After the administration of intravenous contrast, 1 mm thick sections acquired from the aortic arch through the [place]. Post-contrast 4.5 mm thick sections then re-acquired from the foramen magnum to the vertex. 3-dimensional vcoucuj-cermeonot-ewwhrfeaoj (MIP) and/or volume rendering reformats were acquired of the central intracranial vasculature and neck separately. COMPARISON: [facility], CT, CT HEAD/BRAIN WO CON, 01/16/2019, 20:15. FINDINGS: Image quality: Excellent. BRAIN: CSF spaces: Ventricles are normal in size and shape. Basal cisterns are patent. No extra-axial fluid collections. Brain: No midline shift. No intracranial bleeds or masses. Vragas-white matter interface appears intact. Skull and face: Calvarium and facial bones appear intact, without suspicious lesions. Orbits appear normal. Sinuses: Bilateral maxillary sinus mucous thickening. HEAD CT ANGIOGRAPHY: Anterior circulation: Intracranial internal carotid arteries are normal in size and flow. The flow within the paired anterior cerebral arteries is normal and symmetric. The flow within the middle cerebral arteries is normal and symmetric. The anterior communicating artery is seen. No aneurysms are seen. There is calcified plaque of the intracranial vasculature. Posterior circulation: Visualized portions of the vertebral arteries demonstrate normal caliber, and join to form a normal appearing basilar artery. The right posterior cerebral artery receives the majority of its blood flow from the right posterior communicating artery, with the P1 segment of the right posterior commuting artery (from the basilar artery) being diminutive in size. Flow within the posterior cerebral arteries is otherwise normal and symmetric. No aneurysms are seen. There is calcified plaque of the intracranial vasculature. NECK CT ANGIOGRAPHY: Carotid system: The great vessels demonstrate a conventional anatomy as they arise from the aortic arch. The origins of the common carotid arteries appear patent. The common carotid arteries demonstrate normal caliber and courses. The bifurcation regions are both widely patent but demonstrate calcified and noncalcified plaque. The internal carotid arteries demonstrate normal calibers and courses. Posterior circulation: The origins of the vertebral arteries both appear widely patent. The more superior extracranial portions of both vertebral arteries also demonstrate normal courses and calibers. They join to form a normal appearing basilar artery. Soft tissues: Bilateral dependent atelectasis with upper lobe emphysematous changes. No pneumothorax. There is a 2.0 cm hypoattenuating left thyroid nodule. Bones: Mild multilevel degenerative changes of the cervical spine. IMPRESSION: 1. No acute intracranial abnormality. 2. The right posterior cerebral artery receives the majority of its blood flow from the right posterior communicating artery, with the P1 segment of the right posterior cerebral artery (arising from the basilar artery) being diminutive in size. Otherwise, no aneurysms, stenoses, or occlusions of the intracranial vasculature noted. 3. No aneurysms, stenoses, or occlusions of the cervical carotid and vertebral arteries noted. 4. 2.0 cm left thyroid nodule. Recommend followup thyroid ultrasound for further evaluation. Any quantitative measurements of stenosis were performed using NASCET criteria. Dictated by: Rikki Gudino M.D. on 01/16/2019 at 22:09 Labs Result Diagrams: 01/16/19 20:25 01/16/19 20:25 Labs: Laboratory Results - last 24 hr 01/16/19 01/16/19 01/16/19 20:25 20:25 20:25 WBC 10.1 RBC 5.19 Hgb 15.6 Hct 45.5 MCV 87.7 MCH 30.1 MCHC 34.3 RDW 14.3 Plt Count 273 Neut % (Auto) 55.7 Lymph % (Auto) 29.8 [place] % (Auto) 11.2 Eos % (Auto) 3.1 Baso % (Auto) 0.2 Neut # (Auto) 5700 Lymph # (Auto) 3000 [place] # (Auto) 1100 H Eos # (Auto) 300 Baso # (Auto) 0 PT 11.2 INR 1.0 APTT 31 Sodium 139 Potassium 4.0 Chloride 104 Carbon Dioxide 25 BUN 13 Creatinine 0.80 Estimated GFR > 60.0 BUN/Creatinine Ratio 16.3 Glucose 98 Calcium 9.3 Urine Color Urine Appearance Urine pH Ur Specific [place] Urine Protein Urine Glucose (UA) Urine Ketones Urine Occult Blood Urine Nitrate Urine Bilirubin Urine Urobilinogen Ur Leukocyte Esterase Urine RBC Urine WBC Urine Bacteria Ur Culture Indicated? Micro UA Comment Urine Opiates Screen Ur Oxycodone Screen Urine Methadone Screen Ur Barbiturates Screen U Tricyclic Antidepress Ur Phencyclidine Scrn Ur Amphetamines Screen U Methamphetamines Scrn Ur MDMA Scrn (Ecstasy) U Benzodiazepines Scrn Urine Cocaine Screen U Marijuana (THC) Screen 01/16/19 01/16/19 21:27 21:27 WBC RBC Hgb Hct MCV MCH MCHC RDW Plt Count Neut % (Auto) Lymph % (Auto) [place] % (Auto) Eos % (Auto) Baso % (Auto) Neut # (Auto) Lymph # (Auto) [place] # (Auto) Eos # (Auto) Baso # (Auto) PT INR APTT Sodium Potassium Chloride Carbon Dioxide BUN Creatinine Estimated GFR BUN/Creatinine Ratio Glucose Calcium Urine Color Yellow Urine Appearance Clear Urine pH 6.5 Ur Specific [place] <=1.005 Urine Protein Negative Urine Glucose (UA) Negative Urine Ketones Negative Urine Occult Blood Negative Urine Nitrate Negative Urine Bilirubin Negative Urine Urobilinogen 0.2 Ur Leukocyte Esterase Negative Urine RBC None seen Urine WBC 0-1/hpf Urine Bacteria None seen Ur Culture Indicated? Cult not indicated Micro UA Comment Microscopic normal Urine Opiates Screen Negative Ur Oxycodone Screen Negative Urine Methadone Screen Negative Ur Barbiturates Screen Negative U Tricyclic Antidepress Negative Ur Phencyclidine Scrn Negative Ur Amphetamines Screen Negative U Methamphetamines Scrn Negative Ur MDMA Scrn (Ecstasy) Negative U Benzodiazepines Scrn Negative Urine Cocaine Screen Negative U Marijuana (THC) Screen Negative Assessment & Plan Assessment & Plan narrative: Patient is a 53-year-old man with hyperlipidemia, tobacco abuse, and ulcerative colitis who presented with double vision. Overall concerning for TIA. Initial stroke work-up in the ED negative. 1) TIA: - Echocardiogram - MRI stroke protocol - Telemetry. No evidence of any arrhythmia thus far on monitoring. - Lipid panel completed recently in October - Restart Atorvastatin - Baby aspirin daily 2) Tobacco abuse: - Discussed the importance of cessation DVT prophylaxis: Pt mobile in room, anticipate brief stay. Not needed. FEN: Cardiac diet Code: Full Dispo: Pt stable for discharge later today if able to have above testing completed. Quality VTE Deep Vein Thrombosis/Pulmonary Embolism Present on Admission: No
[2019-01-17 11:11] VITALS: BP 157/101; PULSE 83; RESP 18; TEMP 36.9; O2SAT 94
--- NOTE | 2019-01-17 11:24 | PC.NURSE ---
Addendum entered by Aydee Martinez R.N. 01/17/19 15:26: NIH stroke scale 0. Pt is resting comfortably. Awaiting results of echo and mri and then pt can go home. will be called when the results are here. Addendum entered by Aydee Martinez R.N. 01/17/19 11:34: Pts bp down to 136/94. Denies headache, numbness or tingling. Original Note: Pt down to MRI and back. O complaints of numbness or tingling. NIH scale O. Up independently and at bedside. BP just now 157/101. Will recheck again in 30 minutes.
[2019-01-17] MEDS: ASPIRIN EC 81 MG TABLET PO (11:31)
[2019-01-17 15:00] VITALS: O2SAT 96
[2019-01-17 15:25] VITALS: BP 147/99; PULSE 85; RESP 18; TEMP 37.1; O2SAT 94
[2019-01-17] MEDS: ATORVASTATIN 20 MG TABLET PO (19:49)
--- NOTE | 2019-01-17 20:33 | PC.NURSE ---
Discharge Note Pt A&O, VSS, no complaints of neurological deficits. Pt given discharge instructions, no questions or concerns. PIV removed and dressing applied, telemetry removed. Pt given all belongings and discharged instructions, at bedside. Pt taken down via wheelchair to personal vehicle and home w/ .
== END 2019-01-17 20:00 | disposition home or self-care (01) ==
LOC: ED 20:23 → AC 22:55
PROVIDERS: Admitting Provider Family Medicine; Emergency Provider Emergency Medicine; PCP Family Medicine; Visit Provider Family Medicine
DX: R29.818 Other symptoms and signs involving the nervous system (principal); H53.2 Diplopia; F17.210 Nicotine dependence, cigarettes, uncomplicated; E78.5 Hyperlipidemia, unspecified; K51.90 Ulcerative colitis, unspecified, without complications
CPT/HCPCS: 36591; 70450; 70496; 70498; 70548; 70553; 80048; 80305; 81001; 85025; 85610; 85730; 93005; 93306; 96360; 96361; 99235; 99284; 99285; 99291; G0378; A9579; Q9967

== ENCOUNTER → 2019-01-29 09:13 | Outpatient (CLI) | payer OTHER, SELFPAY ==
[2019-01-16 23:55] VITALS: BMI 30.8
[2019-01-29 10:11] LABS: Hemoglobin A1C% w Est Avg Glu 5.7 % (4.0-6.0)
[2019-01-29 11:05] LABS: Alanine Aminotransferase 30 IU/L (21-72); Albumin 4.4 g/dL (3.5-5.0); Albumin Globulin Ratio 1.5 (1.0-2.8); Alkaline Phosphatase 82 U/L (38-126); Aspartate Aminotransferase 23 IU/L (17-59); BUN Creatinine Ratio 15.6 (6-22); Bilirubin Total 0.5 mg/dL (0.2-1.3); Blood Urea Nitrogen 14 mg/dL (9-20); Carbon Dioxide 27 mmol/L (22-32); Chloride 105 mmol/L (98-107); Cholesterol 200 mg/dL (140-199); Estimated Glomerular Filt Rate > 60.0 mL/min (>60); Glucose 109 mg/dL (70-100); HDL Cholesterol 34 mg/dL (40-60); HEMOLYSIS < 15 (0-50); LDL Cholesterol Calculated 142 mg/dL (<100); Sodium 140 mmol/L (137-145); Total Protein 7.4 g/dL (6.3-8.2); Triglycerides 118 mg/dL (35-150)
[2019-01-29 11:32] LABS: Thyroid Stimulating Hormone 0.83 uIU/mL (0.47-4.68)
--- NOTE | 2019-01-29 13:03 | DI.US.S_ITS ---
PROCEDURE: US THYROID INDICATIONS: NODULE TECHNIQUE: Real-time scanning was performed of the thyroid gland, with image documentation. COMPARISON: None. FINDINGS: Right: Thyroid lobe measures 4.9 x 1.9 x 2 cm, and is diffusely heterogeneous in echotexture. Left: Thyroid lobe measures 5.8 x 2.7 x 2.3 cm, and is diffusely heterogeneous in echotexture. Isthmus: 5.7 mm thick. Nodule number: #1 Location: Lateral aspect of upper pole right thyroid lobe Size: 1.2 x 0.8 x 0.9 cm. Composition: Predominantly solid Echogenicity: Hypoechoic Shape: Wider than tall Margins: Lobulated Echogenic foci: Punctate Total points: 9 ACR TI-RADS category: 5 Nodule number: #2 Location: Lateral aspect of lower pole right thyroid lobe Size: 0.9 x 0.7 x 0.9 cm. Composition: Predominantly cystic Echogenicity: Markedly hypoechoic Shape: Wider than tall Margins: Smooth Echogenic foci: Punctate Total points: 6 ACR TI-RADS category: 4 Nodule number: #3 Location: Lateral aspect of mid pole right thyroid lobe Size: 0.8 x 0.6 x 0.8 cm. Composition: Solid Echogenicity: Isoechoic Shape: Wider than tall Margins: Halo Echogenic foci: None Total points: 5 ACR TI-RADS category: 4 Nodule number: #4 Location: Midpole of left thyroid lobe Size: 1.5 x 1.3 x 1.5 cm. Composition: Predominantly cystic Echogenicity: Markedly hypoechoic Shape: Wider than tall Margins: Smooth Echogenic foci: Punctate Total points: 6 ACR TI-RADS category: 4 Nodule number: #5 Location: Lower pole of left thyroid lobe Size: 1.9 x 2 x 1.9 cm. Composition: Solid Echogenicity: Hypoechoic Shape: Color than wide Margins: Lobulated Echogenic foci: Punctate Total points: 12 ACR TI-RADS category: 5 IMPRESSION: 1. Bilateral thyroid nodules as described in detail above. Consider fine needle aspiration of lower pole left thyroid lobe nodule for tissue diagnosis. ACR TI-RADS definitions and recommendations: TI-RADS 1 (benign): 0 points. FNA not needed. TI-RADS 2 (not suspicious): 2 points. FNA not needed. TI-RADS 3 (mildly suspicious): 3 points. * FNA if 2.5 cm or larger, follow up if 1.5 cm or larger (at 1, 3, and 5 years). TI-RADS 4 (moderately suspicious): 4-6 points. * FNA if 1.5 cm or larger, follow up if 1 cm or larger (at 1, 2, 3, and 5 years). TI-RADS 5 (highly suspicious): 7 points or more. * FNA if 1 cm or larger, follow up if 0.5 cm or larger (every year for 5 years). Dictated by: Alex Dallas M.D. on 01/29/2019 at 14:48 Approved by: Alex Dallas M.D. on 01/29/2019 at 15:26
== END ==
LOC: US 09:17
PROVIDERS: Family Provider Internal Medicine Cardiovascular Disease; PCP Family Medicine; Visit Provider Family Medicine
DX: E04.2 Nontoxic multinodular goiter (principal); E78.5 Hyperlipidemia, unspecified; I49.3 Ventricular premature depolarization
CPT/HCPCS: 36415; 76536; 80053; 80061; 83036; 83735; 84443

== ENCOUNTER → 2019-04-16 10:27 | Outpatient (CLI) | payer OTHER, SELFPAY ==
[2019-01-16 23:55] VITALS: BMI 30.8
[2019-04-16 11:19] LABS: Cholesterol 164 mg/dL (140-199); HDL Cholesterol 34 mg/dL (40-60); LDL Cholesterol Calculated 101 mg/dL (<100); Triglycerides 145 mg/dL (35-150)
== END ==
PROVIDERS: PCP Family Medicine; Visit Provider Nurse Practitioner
DX: E78.2 Mixed hyperlipidemia (principal)
CPT/HCPCS: 36415; 80061

== ENCOUNTER 2019-06-30 21:51 | Emergency (ER) | payer OTHER, SELFPAY ==
[2019-01-16 23:55] VITALS: BMI 30.8
[2019-06-30 21:56] VITALS: BP 148/93; PULSE 104; RESP 18; TEMP 36.6; O2SAT 98
--- NOTE | 2019-06-30 21:59 | DI.RAD.S_ITS ---
PROCEDURE: XR ELBOW LT MIN 3V INDICATIONS: moved his arm today and felt a pop in his elbow TECHNIQUE: 3 views of the elbow were acquired. COMPARISON: None. FINDINGS: Bones: No fractures or dislocations. No suspicious bony lesions. Screw fixation at the medial aspect of the distal ulna. There is adjacent presumed heterotopic ossification/dystrophic calcifications. Lucency at the bone metal interface raises possibility of hardware loosening or infection however no other comparison studies Soft tissues: No elbow joint effusion. No suspicious soft tissue calcifications. IMPRESSION: Post surgical changes at the medial aspect of the distal humerus. Screw fixation appears grossly intact however there is lucency at the bone metal interface raises the possibility of (nonacute) hardware loosening or infection. Continued short interval radiographic surveillance could be performed, versus triple phase bone scan. No acute fracture identified. Dictated by: Kiet Mackenzie M.D. on 07/01/2019 at 8:34 Approved by: Kiet Mackenzie M.D. on 07/01/2019 at 8:37
--- NOTE | 2019-07-01 02:38 | ED_ITS ---
HPI - Extremity Problem General Chief complaint: Extremity Problem,Nontraumatic Stated complaint: left elbow pain Time Seen by Provider: 06/30/19 21:54 Source: patient Mode of arrival: Ambulatory Limitations: no limitations History of Present Illness HPI Narrative: 54-year-old male daily smoker with history of hyperlipidemia presents with a chief complaint of left elbow pain. Earlier today he was trimming a branch when it fell and he reached up with his left arm and it swung down towards him, while trying to stop the branch with his extended left arm he felt a pop in his left elbow and eyes pain with any range of motion. He denies any numbness, tingling or weakness. He does have a history of injury and has had prior surgery to relocate his ulnar nerve. MD Complaint: extremity pain Onset (ago): hour(s) Pain Consistency: constant Location: left Quality: aching Radiation: none Relieving factors: rest Exacerbating factors: range of motion and palpation Associated symptoms: denies other symptoms Related Data Previous Rx's Medication Instructions Recorded atorvastatin [Lipitor] 20 mg PO BEDTIME #30 tab 01/17/19 aspirin 81 mg tablet,delayed 81 mg PO DAILY #90 tab 04/19/19 release Allergies Allergy/AdvReac Type Severity Reaction Status Date / Time azathioprine [From IMURAN] Allergy Unknown joint pain Verified 01/25/19 09:20 tetracycline [TETRACYCLINE] Allergy Unknown has not Verified 01/25/19 09:21 taken since infancy Review of Systems Constitutional Constitutional: Denies chills, Denies fatigue, Denies fever(s), Denies frequent falls, Denies lethargy and Denies weakness Eyes Eyes: Denies change in vision, Denies eye discharge, Denies irritation and Denies loss of vision ENT Ears, Nose, Mouth, and Throat: Denies change in voice, Denies dizziness, Denies neck pain, Denies sore throat and Denies throat swelling Cardiovascular Cardiovascular: Denies chest pain, Denies irregular heart rhythm, Denies lightheadedness, Denies palpitations, Denies dyspnea, Denies dyspnea on exertion and Denies orthopnea Respiratory Respiratory: Denies cough, Denies dyspnea, Denies dyspnea on exertion and Denies wheezing Gastrointestinal Gastrointestinal: Denies abdominal pain, Denies change in bowel habits, Denies diarrhea, Denies nausea and Denies vomiting Genitourinary Genitourinary: Denies hematuria, Denies flank pain, Denies urinary incontinence and Denies urinary urgency Musculoskeletal Musculoskeletal: Denies back pain, Reports joint swelling, Reports limited range of motion, Denies muscle weakness, Denies neck pain, Denies numbness and Denies tingling Integumentary/Breasts Skin/Breast: Denies pruritus, Denies erythema, Denies rash and Denies wounds Neurologic Neurologic: Denies behavioral changes, Denies confusion, Denies dizziness, Larry es frequent falls, Denies loss of vision, Denies numbness, Denies tingling and Denies weakness Psychiatric Psychiatric: Denies anxiety, Denies behavioral changes, Denies confusion, Denies depression, Denies homicidal ideation and Denies suicidal ideation Endocrine Endocrine: Denies fatigue, Denies flushing and Denies palpitations Hematologic/Lymphatic Hematologic/Lymphatic: Denies easy bruising Allergic/Immunologic Allergic/Immunologic: Denies urticaria, Denies throat swelling and Denies wheezing Patient History Social History household members: spouse Smoking Status: Current every day smoker alcohol intake: current alcohol intake frequency: holidays/special occasions only Substance Use Type: does not use Exam Initial Vital Signs Initial Vital Signs: Vital Signs Temperature 98 F 06/30/19 21:56 Pulse Rate 104 H 06/30/19 21:56 Respiratory Rate 18 06/30/19 21:56 Blood Pressure 148/93 H 06/30/19 21:56 Pulse Oximetry 98 06/30/19 21:56 Procedures Orthopedic Splinting/Casting Injury #1: Side: left Upper Extremity Injury Location: elbow Upper Extremity Immobilizer: sling/shoulder immobilizer Post splinting neuro exam: intact Post splinting vascular exam: intact Placed by: Nursing Course Orders Ordered: ED Orders 06/30/19 21:59 XR elbow LT min 3V Stat Vital Signs Vital signs: Vital Signs - 8 hr 06/30/19 21:56 Temperature 98 F Pulse Rate 104 H Respiratory Rate 18 Blood Pressure 148/93 H Pulse Oximetry 98 MDM - Extremity (Nontraumatic) Imaging Data elbow xray: Attestation: I personally reviewed and interpreted this imaging study as follows: My impression: no obvious change, will send to [facility] Radiologist's impression: Suspected hardware loosening MDM Narrative Medical decision making narrative: patient had left long before official read of Xray. He was put in a sling and encouraged to follow up. I did call him and speak with him upon receipt of xray. He understands the diagnosis and need for follow up. Return precautions stressed such as increasing pain, numbness, tingling or other bothersome symptoms. He assures me he will contact ortho later in the day. Discharge Plan Departure Patient Disposition: Home Clinical Impression: Elbow joint pain Qualifiers: Laterality: left Qualified Code(s): M25.522 - Pain in left elbow Discharge Date/Time: 06/30/19 22:40 Instructions: DI for Elbow Pain Activity Restrictions/Additional Instructions: *You have been diagnosed with [left elbow pain, no obvious findings on x-ray] *What to do: *Take medications as directed *Follow up with your primary care provider in 2-3 days, call for an appointment. Let them know you were seen in the Emergency Department and that we ask that you be seen in follow up *Return to ER if you should have any new, worsening or concerning symptoms Prescriptions: No Action aspirin 81 mg tablet,delayed release (DR/EC) 81 mg PO DAILY Qty: 90 RF: 3 atorvastatin [Lipitor] 20 mg Tablet 20 mg PO BEDTIME Qty: 30 RF: 2 Referrals: Matthew Pabon MD [Primary Care Provider] - Arcelia Marley MD [Physician] -
== END 2019-06-30 22:40 | disposition home or self-care (01) ==
PROVIDERS: Emergency Provider Emergency Medicine; Family Provider Family Medicine; PCP Family Medicine
DX: M25.522 Pain in left elbow (principal)
CPT/HCPCS: 73080; 99282; 99283

== ENCOUNTER → 2020-01-04 14:48 | Outpatient (CLI) | payer OTHER, SELFPAY ==
[2019-01-16 23:55] VITALS: BMI 30.8
--- NOTE | 2020-01-04 14:51 | DI.US.S_ITS ---
PROCEDURE: US PERIPH VENOUS LOW EXTREM LT INDICATIONS: PAIN IN LEFT LEG TECHNIQUE: Real-time imaging, as well as color and pulse Doppler interrogation, were performed of the lower extremity deep veins from the inguinal ligament to the popliteal fossa. COMPARISON: None. FINDINGS: The common femoral, femoral and popliteal veins are normally compressible, and free of intraluminal thrombus. Color and pulse Doppler demonstrate normal phasic intraluminal flow. There is normal augmentation response to distal compression maneuver. IMPRESSION: No evidence of deep vein thrombosis of the left lower extremity. Dictated by: Mitchell Casillas M.D. on 01/04/2020 at 16:00 Approved by: Mitchell Casillas M.D. on 01/04/2020 at 16:00
== END ==
PROVIDERS: Family Provider Family Medicine; PCP Family Medicine; Referring Provider Family Medicine; Visit Provider Family Medicine
DX: M79.605 Pain in left leg (principal)
CPT/HCPCS: 93971

== ENCOUNTER → 2020-01-05 09:28 | Outpatient (CLI) | payer OTHER, SELFPAY ==
[2019-01-16 23:55] VITALS: BMI 30.8
--- NOTE | 2020-01-05 09:30 | DI.RAD.S_ITS ---
PROCEDURE: XR FOOT LT MIN 3V INDICATIONS: Pain TECHNIQUE: 3 views of the foot were acquired. COMPARISON: None. FINDINGS: Bones: No fractures or dislocations. No suspicious bony lesions. A mild plantar calcaneal spur is seen. Soft tissues: No tibiotalar joint effusion. Achilles tendon appears normal. IMPRESSION: No significant plain film abnormality is seen. Dictated by: Steve Bragg M.D. on 01/05/2020 at 8:58 Approved by: Steve Bragg M.D. on 01/05/2020 at 8:59
--- NOTE | 2020-01-05 09:30 | DI.RAD.S_ITS ---
PROCEDURE: XR ANKLE LT MIN 3V INDICATIONS: Pain TECHNIQUE: 3 views of the ankle were acquired. COMPARISON: [facility], CR, XR FOOT LT MIN 3V, 01/05/2020, 9:24. FINDINGS: Bones: No fractures or dislocations. Ankle mortise is normally aligned. No suspicious bony lesions. A likely bone island is seen involving the tibial metaphysis. The talar dome demonstrates no anjelica abnormality. A mild plantar calcaneal spur can be seen. Soft tissues: No tibiotalar joint effusion. Achilles tendon appears normal. IMPRESSION: No significant plain film abnormality is seen. If it would be helpful for clinical management decision making, please consider a dedicated ankle MRI for further evaluation (assuming that there is no contraindication). Dictated by: Steve Bragg M.D. on 01/05/2020 at 9:17 Approved by: Steve Bragg M.D. on 01/05/2020 at 9:18
== END ==
PROVIDERS: Family Provider Family Medicine; PCP Family Medicine; Referring Provider Family Medicine; Visit Provider Family Medicine
DX: M25.572 Pain in left ankle and joints of left foot (principal); M77.32 Calcaneal spur, left foot
CPT/HCPCS: 73610; 73630

== ENCOUNTER → 2020-01-19 09:35 | Outpatient (CLI) | payer OTHER, SELFPAY ==
[2019-01-16 23:55] VITALS: BMI 30.8
--- NOTE | 2020-01-19 09:37 | DI.RAD.S_ITS ---
PROCEDURE: XR SHOULDER RT MIN 2V INDICATIONS: Shoulder pain TECHNIQUE: 3 views of the shoulder were acquired. COMPARISON: None. FINDINGS: Bones: No fractures or dislocations. No suspicious bony lesions. Visualized ribs appear intact. Mild AC degeneration. There is also glenohumeral spurring and sclerosis. Soft tissues: No suspicious soft tissue calcifications. IMPRESSION: Right shoulder joint degeneration as above Dictated by: Kiet Mackenzie M.D. on 01/19/2020 at 11:32 Approved by: Kiet Mackenzie M.D. on 01/19/2020 at 11:35
== END ==
PROVIDERS: Family Provider Family Medicine; PCP Family Medicine; Referring Provider Family Medicine; Visit Provider Family Medicine
DX: M25.511 Pain in right shoulder (principal); M19.011 Primary osteoarthritis, right shoulder
CPT/HCPCS: 73030

== ENCOUNTER → 2020-02-01 15:35 | Outpatient (CLI) | payer OTHER, SELFPAY ==
[2019-01-16 23:55] VITALS: BMI 30.8
--- NOTE | 2020-02-01 15:45 | DI.MRI.S_ITS ---
PROCEDURE: MR SHOULDER RT WO CON INDICATIONS: Shoulder pain TECHNIQUE: Noncontrast oblique coronal T2 fast spin echo with fat saturation, oblique sagittal T1 spin echo and T2 fast spin echo with fat saturation, axial T1 spin echo and T2 fast spin echo with fat saturation through the shoulder. COMPARISON: [facility], CR, XR SHOULDER RT MIN 2V, 01/19/2020, 9:31. FINDINGS: Image quality: Excellent. Rotator cuff: Full-thickness tearing of the posterior supraspinatus tendon at the humeral insertion site is present measuring 13 mm anteroposterior. Low-grade partial-thickness intrasubstance tearing of the upper subscapularis tendon at the humeral insertion site. Infraspinatus and teres minor tendons intact. Bones and bursae: No bone marrow contusions or fractures. Moderate acromioclavicular joint degeneration. The acromion demonstrates conventional anatomy, without an os acromiale. No pathologic subacromial-subdeltoid or subcoracoid bursal fluid is present. Capsule and soft tissues: In the absence of intra-articular contrast, the labrum and glenohumeral ligaments appear intact. The long head of the biceps tendon demonstrates normal location and split type tearing. The rotator interval appears normal, without fibrosis. The coracohumeral ligament is normal in thickness. IMPRESSION: 1. Full-thickness tearing of the posterior supraspinatus tendon. 2. Low-grade partial-thickness tearing of the upper subscapularis tendon. 3. Acromioclavicular joint osteoarthritis. 4. Split type tearing of the biceps tendon. Dictated by: Veronica Moy M.D. on 02/01/2020 at 17:15 Approved by: Veronica Moy M.D. on 02/01/2020 at 17:17
--- NOTE | 2020-02-01 15:45 | DI.MRI.S_ITS ---
PROCEDURE: MR ANKLE LT WO CON INDICATIONS: Unstable ankle TECHNIQUE: Noncontrast sagittal T1 spin echo and T2 fast spin echo with fat saturation, axial proton density fast spin echo and T2 fast spin echo with fat saturation, coronal T1 spin echo and T2 fast spin echo with fat saturation through the ankle/hindfoot. COMPARISON: None. FINDINGS: Image quality: Excellent. Bones and joints: Osteoarthritic changes are noted throughout visualized mid foot and hindfoot joints. Prominent subchondral cyst formation involving anterior superior portion of calcaneus adjacent to subtalar joint is seen. Well-defined plantar calcaneal enthesophyte is noted. No bone marrow contusions or fractures. No hindfoot coalitions. No osteochondral injuries of the talar dome. No pathologic joint effusions. Medial structures: The posterior tibialis, flexor digitorum longus, and flexor hallucis longus tendons are mildly thickened with fluid distending the tendon sheath most prominent involving posterior tibialis tendon consistent with low to moderate grade tenosynovitis. The posterior tibial neurovascular bundle appears normal within the tarsal tunnel, without extrinsic mass effect. The deep layer (anterior and posterior tibiotalar ligaments) and superficial layer (tibionavicular, tibiospring, and tibiocalcaneal ligaments) of the deltoid ligament appear normal. The spring ligament components (superomedial calcaneonavicular, medioplantar oblique calcaneonavicular, and inferoplantar longitudinal ligaments) are intact. Lateral structures: The anterior talofibular, calcaneofibular, and posterior talofibular ligaments appear intact. More superiorly, the anterior and posterior tibiofibular ligaments appear intact, as is the intermalleolar ligament. The tibiofibular syndesmosis is normal in width at 2 mm or less. The peroneus longus and brevis tendons are mildly thickened with small amount of surrounding fluid suggestive of low-grade tenosynovitis. Adjacent bony peroneal tubercle and retrotrochlear prominence are normal in size. The sinus tarsi demonstrates normal fatty signal, without edema, fibrosis, or cyst formation. Visualized sinus tarsi components (cervical ligament, interosseous talocalcaneal ligament, roots of the inferior extensor retinaculum) appear normal. The calcaneonavicular and calcaneocuboid components of the bifurcate ligament appear intact. The dorsal calcaneocuboid ligament appears intact. Anterior structures: The tibialis anterior, extensor hallucis longus, and extensor digitorum longus tendons appear intact. The dorsal talonavicular ligament appears intact. Posterior and plantar structures: Achilles tendon is intact. Medial and lateral bands of the plantar fascia are of normal thickness. No abductor digiti quinti muscle atrophy to suggest Leung neuropathy. IMPRESSION: 1. Moderate osteoarthritic changes throughout visualized mid foot and hindfoot joints more prominent involving talonavicular joint and subtalar joint. No fracture or dislocation. No evidence of avascular necrosis of her abdomen. 2. Low to moderate grade tenosynovitis involving the flexor tendons most prominent involving posterior tibialis tendon. 3. Very low-grade tenosynovitis involving peroneus tendons. 4. Medial and lateral ankle ligaments are grossly intact. Dictated by: Alex Dallas M.D. on 02/02/2020 at 9:08 Approved by: Alex Dallas M.D. on 02/02/2020 at 9:34
== END ==
PROVIDERS: Family Provider Family Medicine; PCP Family Medicine; Referring Provider Family Medicine; Visit Provider Family Medicine
DX: M25.511 Pain in right shoulder (principal); M25.572 Pain in left ankle and joints of left foot; M65.872 Other synovitis and tenosynovitis, left ankle and foot; M75.121 Complete rotator cuff tear or rupture of right shoulder, not specified as traumatic; M19.011 Primary osteoarthritis, right shoulder; S46.111A Strain of muscle, fascia and tendon of long head of biceps, right arm, initial encounter
CPT/HCPCS: 73221; 73721

== ENCOUNTER 2020-09-12 09:45 | Outpatient (RCR) | payer OTHER, SELFPAY ==
[2019-01-16 23:55] VITALS: BMI 30.8
--- NOTE | 2020-05-30 13:32 | PT.OTN ---
Current Diagnoses Strain of muscle(s) and tendon(s) of the rotator cuff of right shoulder, initial encounter (05/30/20) Physical Therapy Treatment Note PT-OP-A Visit Information Start: 05/30/20 07:24 Freq: Status: Active Protocol: Document 05/30/20 10:30 MB (Rec: 05/30/20 10:49 MB [id number]) Out-Patient Physical Therapy Visit Information Visit Information Visit Type Initial Evaluation Visit Note [facility], 25 visits Visit Start Time 10:30 Visit Stop Time 11:15 Total Visit Minutes 45 Visit Number 45 Evaluation Information Evaluation Date 05/30/20 PT-OP-B Current Condition Start: 05/30/20 07:24 Freq: Status: Active Protocol: Document 05/30/20 10:30 MB (Rec: 05/30/20 10:49 MB [id number]) Current Condition History of Current Condition Onset Date Chronic injury, right shoulder arthroscopic surgery 2019 Current Complaints Pain and not being able to use right arm, trouble sleeping History of Current Condition 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 Pt reports chronic right shoulder injury including biceps tear, bone spurs. He underwent arthroscopic surgery on 05/05/2020. He has an abduction sling, was given pendulum exercises and is currently NWB, no active movement. He is moving his right hand. Pt was icing. He reports 4/10 right anterior and posterior shoulder pain. He is sleeping in the bed with sling on. He sees doctor again in six weeks and should hear about sling wear. PMH: Left rotator cuff surgery 10 years ago, left ACL repair x3, left ulnar nerve transposition, TIA 2019 (pt had vision changes) and pt denies residual symptoms, pt takes statin and aspirin, ulcerative colitis and pt has trouble with oral medications. His blood pressure fluctuates . Pt reports occ tingling around incision areas on top of right shoulder. Pt has five arthroscopic incisions. Treatment Goals Patient/Caregiver Goals To get back to normal. PT-OP-C Subjective Start: 05/30/20 07:24 Freq: Status: Active Protocol: Document 05/30/20 10:30 MB (Rec: 05/30/20 13:08 MB [id number]) OP-PT Subjective Patient Comments Patient Comments See history of current condition. Patient Questionnaires Quick Dash- Upper Extremity Quick Dash UE Score 43 Quick Dash UE Impairment 60 to 79% Impaired (Score 60- 79) PT-OP-K Range of Motion Start: 05/30/20 07:24 Freq: Status: Active Protocol: Document 05/30/20 10:30 MB (Rec: 05/30/20 13:32 MB [id number]) Cervical Spine Range of Motion Cervical Spine Active Testing Position Standing Flexion 35 Extension 45 Rotation Left 60 Rotation Right 55 Lateral Flexion Left 20 Lateral Flexion Right 20 Shoulder Goniometric Range of Motion Shoulder Right Shoulder ROM WFL No Testing Position Supine Left Shoulder ROM WFL Yes Testing Position Supine Flexion 70 Abduction 90 External Rotation at 90 degrees 5 Abduction Shoulder ROM Limitations Shoulder ROM Limitations Soft Tissue Tightness,Muscle Weakness,Pain,Swelling Comments PROM right shoulder only in supine with head and neck supported. With shoulder at 90 /90, IR is 10 deg. Pain limitations all ranges with 8/ 10 pain with passive flexion and abduction. Elbow/Forearm Range of Motion Elbow/Forearm Right Elbow/Forearm ROM WFL Yes ROM Testing Position Supine Left Elbow/Forearm ROM WFL Yes Elbow/Forearm ROM Limitations Comments Did not encourage pt to push through supination or pronation d/t biceps tear, post-op repair and bruising PT-OP-M Strength Start: 05/30/20 07:24 Freq: Status: Active Protocol: Document 05/30/20 10:30 MB (Rec: 05/30/20 13:32 MB [id number]) Shoulder Strength Shoulder Manual Muscle Testing Right Comments R shoulder MMT deferred at this time. Left Comments Left UE strength WNLs Elbow/Forearm Strength Elbow and Forearm Manual Muscle Testing Right Extension (C7) 5 Normal Comments Other elbow MMT deferred d/t biceps post-op Left Comments Left elbow WNLs Wrist Strength Wrist Manual Muscle Testing Right Flexion (C7) 5 Normal Extension (C6) 5 Normal Left Comments Left wrist WNLs PT-OP-Q Treatments Start: 05/30/20 07:24 Freq: Status: Active Protocol: Document 05/30/20 10:30 MB (Rec: 05/30/20 13:32 MB [id number]) Therapeutic Exercises Sitting Exercises Cervical AROM Side bilateral Reps/Minutes 5 Comments Rotation right and left and then extension and flexion Standing Exercises Scapular retraction Side bilateral Reps/Minutes 5 Comments Perform sitting and standing-- sitting right arm supported on pillows Pendulum Side right Equipment Used Mat table Reps/Minutes 4 Comments Ed to dangle right arm, move hips side to side, forward and back and hoopa Self-Care/Home Management Treatment Education Other Education Benefits in icing, safe sitting position with pillow support at right side with another pillow on top and right arm resting on it (this is similar position to abduction sling), scapular retraction in this position, benefits of ice, proper sleeping position with head, shoulder and neck support. Benefits of performing scapular retraction and cervical exercises daily, passive exercise right shoulder PT-OP-T Assessment and Plan Start: 05/30/20 07:24 Freq: Status: Active Protocol: Document 05/30/20 10:30 MB (Rec: 05/30/20 13:32 MB [id number]) Physical Therapy Assessment Rehab Potential Rehabilitation Potential Good Evaluation Complexity Number of Personal Factors/Comorbidities 1-2 Number of Body Systems Impaired 1-2 Clinical Presentation at Evaluation Stable Goals 5 Cruller Maker Goal (LTG) Pt will present with AROM right shoulder to at least 160 deg flexion and abduction to improve functional use of arm by 08/29/2020. LTG Duration 12 weeks 4 Cruller Maker Goal (LTG) Pt will perform progressive HEP including AROM, progressive strengthening ( both as cleared by surgeon) to prepare for return to work by 08/29/2020. LTG Duration 12 weeks 3 Snf Goal (LTG) Pt will progress through PROM, AAROM (as cleared by surgeon) and other postural and core exercises with HEP to improve right shoulder function and use by 07/30/2020. LTG Duration 8 weeks 2 Cruller Maker Goal (LTG) Pt will present with right shoulder PROM to at least 160 deg flexion and abduction and 25 deg ER and IR with shoulder in 90/90 in supine by 2019. LTG Duration 8 weeks 1 Snf Goal (LTG) Pt will present with QuickDASH score reflecting no more than 30% impairment to prepare for return to work by 07/30/2020. LTG Duration 8 weeks Assessment Summary Assessment Pt is a 55 y/o male presenting 3 weeks post-op right shoulder arthroscopy. Pt is currently NWB, wearing abduction sling and cleared for PROM. This date, PT instructs safe sitting position to improve skin integrity of under arm and promote scapular retraction, pendulum exercises and cervical AROM. Pt presents with good safety awareness and has been compliant with sling use. Ths sling is causing him a lot of pain in bed and he is not sleeping much. Recommend follow-up with surgeon about positioning of arm for sleeping in order to allow pt better sleep and recovery. PROM is limited by pain today. Pt rests easily with head, cervical and arm support with pillow and towel roll support in supine today. He con't with some ecchymosis right biceps area and presents with five post-surgical scars that are healing well. His right proximal arm is atrophied compared to the left . Pt will benefit from PT to improve range, strength and function. 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 Anticipate lengthy rehabilitation of 4 months at least given full restrictions may not be lifted until 12 weeks post-op. Physical Therapy Plan Frequency and Duration Frequency of Treatment 2x/Week Duration of Treatment 12 weeks Plan of Care Start Date 05/30/20 Plan of Care End Date 08/29/20 Therapeutic Interventions Therapeutic Interventions Aquatic Therapy,Home Exercise Program,Manual Therapy, Neuromuscular Re-education, Patient/Caregiver Education, Self-Care/Home Management,Soft Tissue Mobilization,Taping, Therapeutic Activities, Therapeutic Exercises Modalities Cold Pack/Ice Massage,Electric Stimulation,Hot Packs, Ultrasound Next Visit Focus/Plan Next Note Type Treatment Note Next Visit Plan Assess thoracic spine in order to determine if any thoracic flexibility can be added such as racquet ball more mobilization, perform PROM
--- NOTE | 2020-05-30 13:32 | PT.OPPOC ---
Physical, Occupational & Speech Therapy At [facility] Current Diagnoses Strain of muscle(s) and tendon(s) of the rotator cuff of right shoulder, initial encounter (05/30/20) Visit Care Team Role Provider Type Matthew Pabon MD Family Provider Physician Primary Care Provider Specialty: Family Practice Address: [address] [place] [address], [id number] Email: [email or web address] Dylan Dumont Attending Provider Non-Staff Referring Provider Specialty: Medical Address: [facility] [address], [place], [address] Email: Plan Of Care PT-OP-T Assessment and Plan Start: 05/30/20 07:24 Freq: Status: Active Protocol: Document 05/30/20 10:30 MB (Rec: 05/30/20 13:32 MB [id number]) Physical Therapy Assessment Rehab Potential Rehabilitation Potential Good Evaluation Complexity Number of Personal Factors/Comorbidities 1-2 Number of Body Systems Impaired 1-2 Clinical Presentation at Evaluation Stable Goals 5 Custodial Goal (LTG) Pt will present with AROM right shoulder to at least 160 deg flexion and abduction to improve functional use of arm by 08/29/2020. LTG Duration 12 weeks 4 Custodial Goal (LTG) Pt will perform progressive HEP including AROM, progressive strengthening ( both as cleared by surgeon) to prepare for return to work by 08/29/2020. LTG Duration 12 weeks 3 Custodial Goal (LTG) Pt will progress through PROM, AAROM (as cleared by surgeon) and other postural and core exercises with HEP to improve right shoulder function and use by 07/30/2020. LTG Duration 8 weeks 2 Custodial Goal (LTG) Pt will present with right shoulder PROM to at least 160 deg flexion and abduction and 25 deg ER and IR with shoulder in 90/90 in supine by 2019. LTG Duration 8 weeks 1 Machine Stamper Goal (LTG) Pt will present with QuickDASH score reflecting no more than 30% impairment to prepare for return to work by 07/30/2020. LTG Duration 8 weeks Assessment Summary Assessment Pt is a 55 y/o male presenting 3 weeks post-op right shoulder arthroscopy. Pt is currently NWB, wearing abduction sling and cleared for PROM. This date, PT instructs safe sitting position to improve skin integrity of under arm and promote scapular retraction, pendulum exercises and cervical AROM. Pt presents with good safety awareness and has been compliant with sling use. Ths sling is causing him a lot of pain in bed and he is not sleeping much. Recommend follow-up with surgeon about positioning of arm for sleeping in order to allow pt better sleep and recovery. PROM is limited by pain today. Pt rests easily with head, cervical and arm support with pillow and towel roll support in supine today. He con't with some ecchymosis right biceps area and presents with five post-surgical scars that are healing well. His right proximal arm is atrophied compared to the left . Pt will benefit from PT to improve range, strength and function. 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 Anticipate lengthy rehabilitation of 4 months at least given full restrictions may not be lifted until 12 weeks post-op. Physical Therapy Plan Frequency and Duration Frequency of Treatment 2x/Week Duration of Treatment 12 weeks Plan of Care Start Date 05/30/20 Plan of Care End Date 08/29/20 Therapeutic Interventions Therapeutic Interventions Aquatic Therapy,Home Exercise Program,Manual Therapy, Neuromuscular Re-education, Patient/Caregiver Education, Self-Care/Home Management,Soft Tissue Mobilization,Taping, Therapeutic Activities, Therapeutic Exercises Modalities Cold Pack/Ice Massage,Electric Stimulation,Hot Packs, Ultrasound Next Visit Focus/Plan Next Note Type Treatment Note Next Visit Plan Assess thoracic spine in order to determine if any thoracic flexibility can be added such as racquet ball more mobilization, perform PROM Plan of Care Dates Plan of Care Start Date 05/30/20 Plan of Care End Date 08/29/20 Electronically Signed by: Wandy Poon PT 05/30/20 2099 Please Sign and Return: I have reviewed this Plan of Care and certify that the skilled therapy services above are required to meet the patient?s needs. Physician Signature Date Printed Name and Credentials Clinical Instructor Signature Printed Name and Credentials
--- NOTE | 2020-06-01 13:21 | PT.OTN ---
Current Diagnoses Strain of muscle(s) and tendon(s) of the rotator cuff of right shoulder, initial encounter (06/01/20) Physical Therapy Treatment Note PT-OP-A Visit Information Start: 05/30/20 07:24 Freq: Status: Active Protocol: Document 06/01/20 13:12 HH (Rec: 06/01/20 13:20 HH [email or web address]) Out-Patient Physical Therapy Visit Information Visit Information Visit Type Treatment Note Visit Start Time 11:17 Visit Stop Time 12:00 Total Visit Minutes 43 Visit Number 11/09 PT-OP-B Current Condition Start: 05/30/20 07:24 Freq: Status: Active Protocol: Document 05/30/20 10:30 MB (Rec: 05/30/20 10:49 MB [id number]) Current Condition History of Current Condition Onset Date Chronic injury, right shoulder arthroscopic surgery 2019 Current Complaints Pain and not being able to use right arm, trouble sleeping History of Current Condition 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 Pt reports chronic right shoulder injury including biceps tear, bone spurs. He underwent arthroscopic surgery on 05/05/2020. He has an abduction sling, was given pendulum exercises and is currently NWB, no active movement. He is moving his right hand. Pt was icing. He reports 4/10 right anterior and posterior shoulder pain. He is sleeping in the bed with sling on. He sees doctor again in six weeks and should hear about sling wear. PMH: Left rotator cuff surgery 10 years ago, left ACL repair x3, left ulnar nerve transposition, TIA 2019 (pt had vision changes) and pt denies residual symptoms, pt takes statin and aspirin, ulcerative colitis and pt has trouble with oral medications. His blood pressure fluctuates . Pt reports occ tingling around incision areas on top of right shoulder. Pt has five arthroscopic incisions. Treatment Goals Patient/Caregiver Goals To get back to normal. PT-OP-C Subjective Start: 05/30/20 07:24 Freq: Status: Active Protocol: Document 06/01/20 13:12 HH (Rec: 06/01/20 13:20 HH [email or web address]) OP-PT Subjective Patient Comments Patient Comments I just have trouble sleeping at this point. Just cant get comfortable. But im doing all my exercises PT-OP-K Range of Motion Start: 05/30/20 07:24 Freq: Status: Active Protocol: Document 05/30/20 10:30 MB (Rec: 05/30/20 13:32 MB [id number]) Cervical Spine Range of Motion Cervical Spine Active Testing Position Standing Flexion 35 Extension 45 Rotation Left 60 Rotation Right 55 Lateral Flexion Left 20 Lateral Flexion Right 20 Shoulder Goniometric Range of Motion Shoulder Right Shoulder ROM WFL No Testing Position Supine Left Shoulder ROM WFL Yes Testing Position Supine Flexion 70 Abduction 90 External Rotation at 90 degrees 5 Abduction Shoulder ROM Limitations Shoulder ROM Limitations Soft Tissue Tightness,Muscle Weakness,Pain,Swelling Comments PROM right shoulder only in supine with head and neck supported. With shoulder at 90 /90, IR is 10 deg. Pain limitations all ranges with 8/ 10 pain with passive flexion and abduction. Elbow/Forearm Range of Motion Elbow/Forearm Right Elbow/Forearm ROM WFL Yes ROM Testing Position Supine Left Elbow/Forearm ROM WFL Yes Elbow/Forearm ROM Limitations Comments Did not encourage pt to push through supination or pronation d/t biceps tear, post-op repair and bruising PT-OP-M Strength Start: 05/30/20 07:24 Freq: Status: Active Protocol: Document 05/30/20 10:30 MB (Rec: 05/30/20 13:32 MB [id number]) Shoulder Strength Shoulder Manual Muscle Testing Right Comments R shoulder MMT deferred at this time. Left Comments Left UE strength WNLs Elbow/Forearm Strength Elbow and Forearm Manual Muscle Testing Right Extension (C7) 5 Normal Comments Other elbow MMT deferred d/t biceps post-op Left Comments Left elbow WNLs Wrist Strength Wrist Manual Muscle Testing Right Flexion (C7) 5 Normal Extension (C6) 5 Normal Left Comments Left wrist WNLs PT-OP-Q Treatments Start: 05/30/20 07:24 Freq: Status: Active Protocol: Document 06/01/20 13:12 HH (Rec: 06/01/20 13:20 HH [email or web address]) Therapeutic Exercises Sidelying Exercises scap mob Sidelying Exercise Name elevation, depression, retraction Side right Equipment Used with PT resistance Reps/Minutes 6 x2 Comments protraction produces discomfort at long head bicep Sitting Exercises PROM elbow Side right Reps/Minutes 4 mins Comments muscle guarding noted for passive extension PROM Sitting Exercise Name abduction and flexion Side right Reps/Minutes 4 mins Comments abd up to approx 90, flexion up to approx 100 Manual Therapy Treatment Soft Tissue Mobilization biceps Body Location R Mobilization Type Rolling,Sustained Pressure, Trigger Point Release Intensity/Depth Moderate Body Position Supine Comments ecchymosis noted at distal bicep insertion. proximal stroke used no discomfort noted. Manual Techniques rhythmic initiation Type R scap Body Position Sidelying Reps/Duration 4 mins Comments elevation, depression, retraction. Slight discomfort with protraction PT-OP-T Assessment and Plan Start: 05/30/20 07:24 Freq: Status: Active Protocol: Document 06/01/20 13:12 (Rec: 06/01/20 13:20 [email or web address]) Physical Therapy Assessment Goals 5 Longterm Goal (LTG) Pt will present with AROM right shoulder to at least 160 deg flexion and abduction to improve functional use of arm by 08/29/2020. LTG Duration 12 weeks 4 Consulting Technical Manager Goal (LTG) Pt will perform progressive HEP including AROM, progressive strengthening ( both as cleared by surgeon) to prepare for return to work by 08/29/2020. LTG Duration 12 weeks 3 Consulting Technical Manager Goal (LTG) Pt will progress through PROM, AAROM (as cleared by surgeon) and other postural and core exercises with HEP to improve right shoulder function and use by 07/30/2020. LTG Duration 8 weeks 2 Consulting Technical Manager Goal (LTG) Pt will present with right shoulder PROM to at least 160 deg flexion and abduction and 25 deg ER and IR with shoulder in 90/90 in supine by 2019. LTG Duration 8 weeks 1 Longterm Goal (LTG) Pt will present with QuickDASH score reflecting no more than 30% impairment to prepare for return to work by 07/30/2020. LTG Duration 8 weeks Assessment Summary Assessment Introduced PROM to his shoulder with this PT assistance. Muscle guarding noted for elbow extension and shoulder flexion and abd with minimal discomfort. Added scap mob and AROM ex. Pt ben session well Physical Therapy Plan Next Visit Focus/Plan Next Note Type Treatment Note Next Visit Plan Assess thoracic spine in order to determine if any thoracic flexibility can be added such as racquet ball more mobilization, perform PROM
--- NOTE | 2020-06-06 10:39 | PT.OTN ---
Current Diagnoses Strain of muscle(s) and tendon(s) of the rotator cuff of right shoulder, initial encounter (06/06/20) Physical Therapy Treatment Note PT-OP-A Visit Information Start: 05/30/20 07:24 Freq: Status: Active Protocol: Document 06/06/20 09:48 HH (Rec: 06/06/20 10:38 HH [id number]) Out-Patient Physical Therapy Visit Information Visit Information Visit Type Treatment Note Visit Start Time 09:47 Visit Stop Time 10:30 Total Visit Minutes 43 Visit Number 12/07 PT-OP-B Current Condition Start: 05/30/20 07:24 Freq: Status: Active Protocol: Document 05/30/20 10:30 MB (Rec: 05/30/20 10:49 MB [id number]) Current Condition History of Current Condition Onset Date Chronic injury, right shoulder arthroscopic surgery 2019 Current Complaints Pain and not being able to use right arm, trouble sleeping History of Current Condition 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 Pt reports chronic right shoulder injury including biceps tear, bone spurs. He underwent arthroscopic surgery on 05/05/2020. He has an abduction sling, was given pendulum exercises and is currently NWB, no active movement. He is moving his right hand. Pt was icing. He reports 4/10 right anterior and posterior shoulder pain. He is sleeping in the bed with sling on. He sees doctor again in six weeks and should hear about sling wear. PMH: Left rotator cuff surgery 10 years ago, left ACL repair x3, left ulnar nerve transposition, TIA 2019 (pt had vision changes) and pt denies residual symptoms, pt takes statin and aspirin, ulcerative colitis and pt has trouble with oral medications. His blood pressure fluctuates . Pt reports occ tingling around incision areas on top of right shoulder. Pt has five arthroscopic incisions. Treatment Goals Patient/Caregiver Goals To get back to normal. PT-OP-C Subjective Start: 05/30/20 07:24 Freq: Status: Active Protocol: Document 06/06/20 09:48 HH (Rec: 06/06/20 10:38 HH [id number]) OP-PT Subjective Patient Comments Patient Comments My bruises are all gone but i still have trouble sleeping Patient Reported Progress Improving PT-OP-K Range of Motion Start: 05/30/20 07:24 Freq: Status: Active Protocol: Document 05/30/20 10:30 MB (Rec: 05/30/20 13:32 MB [id number]) Cervical Spine Range of Motion Cervical Spine Active Testing Position Standing Flexion 35 Extension 45 Rotation Left 60 Rotation Right 55 Lateral Flexion Left 20 Lateral Flexion Right 20 Shoulder Goniometric Range of Motion Shoulder Right Shoulder ROM WFL No Testing Position Supine Left Shoulder ROM WFL Yes Testing Position Supine Flexion 70 Abduction 90 External Rotation at 90 degrees 5 Abduction Shoulder ROM Limitations Shoulder ROM Limitations Soft Tissue Tightness,Muscle Weakness,Pain,Swelling Comments PROM right shoulder only in supine with head and neck supported. With shoulder at 90 /90, IR is 10 deg. Pain limitations all ranges with 8/ 10 pain with passive flexion and abduction. Elbow/Forearm Range of Motion Elbow/Forearm Right Elbow/Forearm ROM WFL Yes ROM Testing Position Supine Left Elbow/Forearm ROM WFL Yes Elbow/Forearm ROM Limitations Comments Did not encourage pt to push through supination or pronation d/t biceps tear, post-op repair and bruising PT-OP-M Strength Start: 05/30/20 07:24 Freq: Status: Active Protocol: Document 05/30/20 10:30 MB (Rec: 05/30/20 13:32 MB [id number]) Shoulder Strength Shoulder Manual Muscle Testing Right Comments R shoulder MMT deferred at this time. Left Comments Left UE strength WNLs Elbow/Forearm Strength Elbow and Forearm Manual Muscle Testing Right Extension (C7) 5 Normal Comments Other elbow MMT deferred d/t biceps post-op Left Comments Left elbow WNLs Wrist Strength Wrist Manual Muscle Testing Right Flexion (C7) 5 Normal Extension (C6) 5 Normal Left Comments Left wrist WNLs PT-OP-Q Treatments Start: 05/30/20 07:24 Freq: Status: Active Protocol: Document 06/06/20 09:48 HH (Rec: 06/06/20 10:38 HH [id number]) Therapeutic Exercises Supine Exercises PROM Supine Exercise Name abd, flexion, scaption Side right Reps/Minutes 15 mins Comments abd up to 90, scaption 140, flexion 140. mild pain at end range manual arts therapist strength Supine Exercise Name gripper Side bilateral Reps/Minutes 5 sec hold x 10 x 2 Sidelying Exercises scap mob Sidelying Exercise Name elevation, depression, retraction Side right Equipment Used with PT resistance Reps/Minutes 8 x2 Comments protraction produces discomfort at long head bicep Manual Therapy Treatment Soft Tissue Mobilization biceps Body Location R Mobilization Type Rolling,Sustained Pressure, Trigger Point Release Intensity/Depth Moderate Body Position Supine Comments minimal ecchymosis noted at distal bicep insertion. Manual Techniques rhythmic initiation Type R scap Body Position Sidelying Reps/Duration 4 mins Comments elevation, depression, retraction. Slight discomfort with protraction PT-OP-T Assessment and Plan Start: 05/30/20 07:24 Freq: Status: Active Protocol: Document 06/06/20 09:48 (Rec: 06/06/20 10:38 [id number]) Physical Therapy Assessment Goals 5 Fpc Goal (LTG) Pt will present with AROM right shoulder to at least 160 deg flexion and abduction to improve functional use of arm by 08/29/2020. LTG Duration 12 weeks 4 Fpc Goal (LTG) Pt will perform progressive HEP including AROM, progressive strengthening ( both as cleared by surgeon) to prepare for return to work by 08/29/2020. LTG Duration 12 weeks 3 Fpc Goal (LTG) Pt will progress through PROM, AAROM (as cleared by surgeon) and other postural and core exercises with HEP to improve right shoulder function and use by 07/30/2020. LTG Duration 8 weeks 2 Fpc Goal (LTG) Pt will present with right shoulder PROM to at least 160 deg flexion and abduction and 25 deg ER and IR with shoulder in 90/90 in supine by 2019. LTG Duration 8 weeks 1 Fpc Goal (LTG) Pt will present with QuickDASH score reflecting no more than 30% impairment to prepare for return to work by 07/30/2020. LTG Duration 8 weeks Assessment Summary Assessment Pt will have f/u with surgeon on 06/15. Recommended pt to cancel his appt on to save more visits. Pt ben session well with focus on PROM. Scaption, flexion upto 120-140 degrees abd up to 90 degrees. Physical Therapy Plan Frequency and Duration Frequency of Treatment 2x/Week Duration of Treatment 12 weeks Plan of Care Start Date 05/30/20 Plan of Care End Date 08/29/20 Next Visit Focus/Plan Next Note Type Treatment Note Next Visit Plan check with pt regarding f/u with surgeon Assess thoracic spine in order to determine if any thoracic flexibility can be added such as racquet ball more mobilization, perform PROM
--- NOTE | 2020-06-16 13:39 | PT.OTN ---
Current Diagnoses Strain of muscle(s) and tendon(s) of the rotator cuff of right shoulder, initial encounter (06/16/20) Physical Therapy Treatment Note PT-OP-A Visit Information Start: 05/30/20 07:24 Freq: Status: Active Protocol: Document 06/16/20 12:59 MB (Rec: 06/16/20 13:39 MB [id number]) Out-Patient Physical Therapy Visit Information Visit Information Visit Type Treatment Note Visit Start Time 12:59 Visit Stop Time 13:38 Total Visit Minutes 39 Visit Number 01/07 PT-OP-B Current Condition Start: 05/30/20 07:24 Freq: Status: Active Protocol: Document 05/30/20 10:30 MB (Rec: 05/30/20 10:49 MB [id number]) Current Condition History of Current Condition Onset Date Chronic injury, right shoulder arthroscopic surgery 2019 Current Complaints Pain and not being able to use right arm, trouble sleeping History of Current Condition 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 Pt reports chronic right shoulder injury including biceps tear, bone spurs. He underwent arthroscopic surgery on 05/05/2020. He has an abduction sling, was given pendulum exercises and is currently NWB, no active movement. He is moving his right hand. Pt was icing. He reports 4/10 right anterior and posterior shoulder pain. He is sleeping in the bed with sling on. He sees doctor again in six weeks and should hear about sling wear. PMH: Left rotator cuff surgery 10 years ago, left ACL repair x3, left ulnar nerve transposition, TIA 2019 (pt had vision changes) and pt denies residual symptoms, pt takes statin and aspirin, ulcerative colitis and pt has trouble with oral medications. His blood pressure fluctuates . Pt reports occ tingling around incision areas on top of right shoulder. Pt has five arthroscopic incisions. Treatment Goals Patient/Caregiver Goals To get back to normal. PT-OP-C Subjective Start: 05/30/20 07:24 Freq: Status: Active Protocol: Document 06/16/20 12:59 MB (Rec: 06/16/20 13:39 MB [id number]) OP-PT Subjective Patient Comments Patient Comments I returned to the doctor yesterday and he said I can take off the sling at home. I slept for the first time last night without the sling. PT-OP-K Range of Motion Start: 05/30/20 07:24 Freq: Status: Active Protocol: Document 05/30/20 10:30 MB (Rec: 05/30/20 13:32 MB [id number]) Cervical Spine Range of Motion Cervical Spine Active Testing Position Standing Flexion 35 Extension 45 Rotation Left 60 Rotation Right 55 Lateral Flexion Left 20 Lateral Flexion Right 20 Shoulder Goniometric Range of Motion Shoulder Right Shoulder ROM WFL No Testing Position Supine Left Shoulder ROM WFL Yes Testing Position Supine Flexion 70 Abduction 90 External Rotation at 90 degrees 5 Abduction Shoulder ROM Limitations Shoulder ROM Limitations Soft Tissue Tightness,Muscle Weakness,Pain,Swelling Comments PROM right shoulder only in supine with head and neck supported. With shoulder at 90 /90, IR is 10 deg. Pain limitations all ranges with 8/ 10 pain with passive flexion and abduction. Elbow/Forearm Range of Motion Elbow/Forearm Right Elbow/Forearm ROM WFL Yes ROM Testing Position Supine Left Elbow/Forearm ROM WFL Yes Elbow/Forearm ROM Limitations Comments Did not encourage pt to push through supination or pronation d/t biceps tear, post-op repair and bruising PT-OP-M Strength Start: 05/30/20 07:24 Freq: Status: Active Protocol: Document 05/30/20 10:30 MB (Rec: 05/30/20 13:32 MB [id number]) Shoulder Strength Shoulder Manual Muscle Testing Right Comments R shoulder MMT deferred at this time. Left Comments Left UE strength WNLs Elbow/Forearm Strength Elbow and Forearm Manual Muscle Testing Right Extension (C7) 5 Normal Comments Other elbow MMT deferred d/t biceps post-op Left Comments Left elbow WNLs Wrist Strength Wrist Manual Muscle Testing Right Flexion (C7) 5 Normal Extension (C6) 5 Normal Left Comments Left wrist WNLs PT-OP-Q Treatments Start: 05/30/20 07:24 Freq: Status: Active Protocol: Document 06/16/20 12:59 MB (Rec: 06/16/20 13:39 MB [id number]) Therapeutic Exercises Supine Exercises AAROM cane ER Side right Comments 10 reps gently, abduction to 50 deg, ER 40 deg AAROM cane flexion and abduction Side right Comments 10 reps both, thumb up. Flexion to 140 deg, abduction to 80 deg Standing Exercises Racquet ball STM intrascapular area and rib mobility Side right Comments Performed today and added to HEP Manual Therapy Treatment Other Other Manual Treatments Pt prone: B scapular mobs, STM right levator, grade IV PA thoracic and rib mobs, STM suboccipital muscles PT-OP-T Assessment and Plan Start: 05/30/20 07:24 Freq: Status: Active Protocol: Document 06/16/20 12:59 MB (Rec: 06/16/20 13:39 MB [id number]) Physical Therapy Assessment Goals 5 Custodial Goal (LTG) Pt will present with AROM right shoulder to at least 160 deg flexion and abduction to improve functional use of arm by 08/29/2020. LTG Duration 12 weeks 4 Custodial Goal (LTG) Pt will perform progressive HEP including AROM, progressive strengthening ( both as cleared by surgeon) to prepare for return to work by 08/29/2020. LTG Duration 12 weeks 3 Custodial Goal (LTG) Pt will progress through PROM, AAROM (as cleared by surgeon) and other postural and core exercises with HEP to improve right shoulder function and use by 07/30/2020. LTG Duration 8 weeks 2 [employer] Goal (LTG) Pt will present with right shoulder PROM to at least 160 deg flexion and abduction and 25 deg ER and IR with shoulder in 90/90 in supine by 2019. LTG Duration 8 weeks 1 Custodial Goal (LTG) Pt will present with QuickDASH score reflecting no more than 30% impairment to prepare for return to work by 07/30/2020. LTG Duration 8 weeks Assessment Summary Assessment Pt reports that doctor cleared him to move on to the next protocol phase. Initiated AAROM exercises today, gait training with gentle arm dangle and swing. Physical Therapy Plan Frequency and Duration Frequency of Treatment 2x/Week Duration of Treatment 12 weeks Plan of Care Start Date 05/30/20 Plan of Care End Date 08/29/20 Therapeutic Interventions Therapeutic Interventions Aquatic Therapy,Home Exercise Program,Manual Therapy, Neuromuscular Re-education, Patient/Caregiver Education, Self-Care/Home Management,Soft Tissue Mobilization,Taping, Therapeutic Activities, Therapeutic Exercises Modalities Cold Pack/Ice Massage,Electric Stimulation,Hot Packs, Ultrasound Next Visit Focus/Plan Next Note Type Treatment Note Next Visit Plan Progress ROM exercises and manual work, consider progression to pillow case wall slide, finger crawls, standing thread the needle and supine posterior capsule stretch
--- NOTE | 2020-06-21 10:31 | PT.OTN ---
Current Diagnoses Strain of muscle(s) and tendon(s) of the rotator cuff of right shoulder, initial encounter (06/21/20) Physical Therapy Treatment Note PT-OP-A Visit Information Start: 05/30/20 07:24 Freq: Status: Active Protocol: Document 06/21/20 09:46 MB (Rec: 06/21/20 10:30 MB [id number]) Out-Patient Physical Therapy Visit Information Visit Information Visit Type Treatment Note Visit Note Pt's right rotator cuff surgery was 05/05/2020 and so he is about 6.5 weeks out. Visit Start Time 09:46 Visit Stop Time 10:30 Total Visit Minutes 44 Visit Number 02/06 PT-OP-B Current Condition Start: 05/30/20 07:24 Freq: Status: Active Protocol: Document 05/30/20 10:30 MB (Rec: 05/30/20 10:49 MB [id number]) Current Condition History of Current Condition Onset Date Chronic injury, right shoulder arthroscopic surgery 2019 Current Complaints Pain and not being able to use right arm, trouble sleeping History of Current Condition 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 Pt reports chronic right shoulder injury including biceps tear, bone spurs. He underwent arthroscopic surgery on 05/05/2020. He has an abduction sling, was given pendulum exercises and is currently NWB, no active movement. He is moving his right hand. Pt was icing. He reports 4/10 right anterior and posterior shoulder pain. He is sleeping in the bed with sling on. He sees doctor again in six weeks and should hear about sling wear. PMH: Left rotator cuff surgery 10 years ago, left ACL repair x3, left ulnar nerve transposition, TIA 2019 (pt had vision changes) and pt denies residual symptoms, pt takes statin and aspirin, ulcerative colitis and pt has trouble with oral medications. His blood pressure fluctuates . Pt reports occ tingling around incision areas on top of right shoulder. Pt has five arthroscopic incisions. Treatment Goals Patient/Caregiver Goals To get back to normal. PT-OP-C Subjective Start: 05/30/20 07:24 Freq: Status: Active Protocol: Document 06/21/20 09:46 MB (Rec: 06/21/20 10:30 MB [id number]) OP-PT Subjective Patient Comments Patient Comments I'm doing okay. Pt reports that sleeping is better and he is now able to sleep on his stomach. PT-OP-K Range of Motion Start: 05/30/20 07:24 Freq: Status: Active Protocol: Document 05/30/20 10:30 MB (Rec: 05/30/20 13:32 MB [id number]) Cervical Spine Range of Motion Cervical Spine Active Testing Position Standing Flexion 35 Extension 45 Rotation Left 60 Rotation Right 55 Lateral Flexion Left 20 Lateral Flexion Right 20 Shoulder Goniometric Range of Motion Shoulder Right Shoulder ROM WFL No Testing Position Supine Left Shoulder ROM WFL Yes Testing Position Supine Flexion 70 Abduction 90 External Rotation at 90 degrees 5 Abduction Shoulder ROM Limitations Shoulder ROM Limitations Soft Tissue Tightness,Muscle Weakness,Pain,Swelling Comments PROM right shoulder only in supine with head and neck supported. With shoulder at 90 /90, IR is 10 deg. Pain limitations all ranges with 8/ 10 pain with passive flexion and abduction. Elbow/Forearm Range of Motion Elbow/Forearm Right Elbow/Forearm ROM WFL Yes ROM Testing Position Supine Left Elbow/Forearm ROM WFL Yes Elbow/Forearm ROM Limitations Comments Did not encourage pt to push through supination or pronation d/t biceps tear, post-op repair and bruising PT-OP-M Strength Start: 05/30/20 07:24 Freq: Status: Active Protocol: Document 05/30/20 10:30 MB (Rec: 05/30/20 13:32 MB [id number]) Shoulder Strength Shoulder Manual Muscle Testing Right Comments R shoulder MMT deferred at this time. Left Comments Left UE strength WNLs Elbow/Forearm Strength Elbow and Forearm Manual Muscle Testing Right Extension (C7) 5 Normal Comments Other elbow MMT deferred d/t biceps post-op Left Comments Left elbow WNLs Wrist Strength Wrist Manual Muscle Testing Right Flexion (C7) 5 Normal Extension (C6) 5 Normal Left Comments Left wrist WNLs PT-OP-Q Treatments Start: 05/30/20 07:24 Freq: Status: Active Protocol: Document 06/21/20 09:46 MB (Rec: 06/21/20 10:30 MB [id number]) Therapeutic Exercises Supine Exercises AAROM cane ER Side right Comments 5 reps, abduction today to 80 deg after Neuro re-ed, ER to 40 deg AAROM cane flexion and abduction Side right Comments 5 reps today and improved flexion Sitting Exercises MWM right upper traps Side right Comments Racquet ball at trigger point and pt performing active cervical rotation Standing Exercises Deltoid STM with racquet ball at wall Comments Pt with tenderness anterior delt Pillow case flexion Comments Pt reports feeling it in his right biceps and so backed off today Wall crawls scaption to progressive flexion Side right Comments 3 reps with scaption to gradual flexion Racquet ball STM intrascapular area and rib mobility Side right Comments Performed today and added to HEP Manual Therapy Treatment Other Other Manual Treatments Supine: STM right biceps with MWM with pt extending and flexing elbow and also STM right upper traps. Pt left side lying: STM and release right levator scap Neuro Re-Education Treatment Movement Re-Education Movement Re-education Activities ER and IR, abduction and adduction right shoulder in 45 and 80 deg abduction, PT providing isometric resistance and active range improves afterwards PT-OP-T Assessment and Plan Start: 05/30/20 07:24 Freq: Status: Active Protocol: Document 06/21/20 09:46 MB (Rec: 06/21/20 10:30 MB [id number]) Physical Therapy Assessment Goals 5 Quality Assurance Monitor Body Goal (LTG) Pt will present with AROM right shoulder to at least 160 deg flexion and abduction to improve functional use of arm by 08/29/2020. LTG Duration 12 weeks 4 Quality Assurance Monitor Body Goal (LTG) Pt will perform progressive HEP including AROM, progressive strengthening ( both as cleared by surgeon) to prepare for return to work by 08/29/2020. LTG Duration 12 weeks 3 [facility] Goal (LTG) Pt will progress through PROM, AAROM (as cleared by surgeon) and other postural and core exercises with HEP to improve right shoulder function and use by 07/30/2020. LTG Duration 8 weeks 2 Quality Assurance Monitor Body Goal (LTG) Pt will present with right shoulder PROM to at least 160 deg flexion and abduction and 25 deg ER and IR with shoulder in 90/90 in supine by 2019. LTG Duration 8 weeks 1 Quality Assurance Monitor Body Goal (LTG) Pt will present with QuickDASH score reflecting no more than 30% impairment to prepare for return to work by 07/30/2020. LTG Duration 8 weeks Assessment Summary Assessment Progressed neuromuscular re-ed today for shoulder abduction, ER and IR on the right and pt performs well. Con't progression including PNF and other manual work. Physical Therapy Plan Frequency and Duration Frequency of Treatment 2x/Week Duration of Treatment 12 weeks Plan of Care Start Date 05/30/20 Plan of Care End Date 08/29/20 Therapeutic Interventions Therapeutic Interventions Aquatic Therapy,Home Exercise Program,Manual Therapy, Neuromuscular Re-education, Patient/Caregiver Education, Self-Care/Home Management,Soft Tissue Mobilization,Taping, Therapeutic Activities, Therapeutic Exercises Modalities Cold Pack/Ice Massage,Electric Stimulation,Hot Packs, Ultrasound Next Visit Focus/Plan Next Note Type Treatment Note Next Visit Plan Progress ROM exercises and manual work, consider progression to pillow case wall slide, standing thread the needle and supine posterior capsule stretch
--- NOTE | 2020-06-26 16:08 | PT.OTN ---
Current Diagnoses Strain of muscle(s) and tendon(s) of the rotator cuff of right shoulder, initial encounter (06/26/20) Physical Therapy Treatment Note PT-OP-A Visit Information Start: 05/30/20 07:24 Freq: Status: Active Protocol: Document 06/26/20 15:22 (Rec: 06/26/20 16:08 [id number]) Out-Patient Physical Therapy Visit Information Visit Information Visit Type Treatment Note Visit Start Time 15:17 Visit Stop Time 16:00 Total Visit Minutes 43 Visit Number 03/09 PT-OP-B Current Condition Start: 05/30/20 07:24 Freq: Status: Active Protocol: Document 05/30/20 10:30 MB (Rec: 05/30/20 10:49 MB [id number]) Current Condition History of Current Condition Onset Date Chronic injury, right shoulder arthroscopic surgery 2019 Current Complaints Pain and not being able to use right arm, trouble sleeping History of Current Condition 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 Pt reports chronic right shoulder injury including biceps tear, bone spurs. He underwent arthroscopic surgery on 05/05/2020. He has an abduction sling, was given pendulum exercises and is currently NWB, no active movement. He is moving his right hand. Pt was icing. He reports 4/10 right anterior and posterior shoulder pain. He is sleeping in the bed with sling on. He sees doctor again in six weeks and should hear about sling wear. PMH: Left rotator cuff surgery 10 years ago, left ACL repair x3, left ulnar nerve transposition, TIA 2019 (pt had vision changes) and pt denies residual symptoms, pt takes statin and aspirin, ulcerative colitis and pt has trouble with oral medications. His blood pressure fluctuates . Pt reports occ tingling around incision areas on top of right shoulder. Pt has five arthroscopic incisions. Treatment Goals Patient/Caregiver Goals To get back to normal. PT-OP-C Subjective Start: 05/30/20 07:24 Freq: Status: Active Protocol: Document 06/26/20 15:22 HH (Rec: 06/26/20 16:08 [id number]) OP-PT Subjective Patient Comments Patient Comments [place] been doing good. I am able to sleep on my stomach without problem. Ex helps and i do get sore at the end sometimes. PT-OP-K Range of Motion Start: 05/30/20 07:24 Freq: Status: Active Protocol: Document 05/30/20 10:30 MB (Rec: 05/30/20 13:32 MB [id number]) Cervical Spine Range of Motion Cervical Spine Active Testing Position Standing Flexion 35 Extension 45 Rotation Left 60 Rotation Right 55 Lateral Flexion Left 20 Lateral Flexion Right 20 Shoulder Goniometric Range of Motion Shoulder Right Shoulder ROM WFL No Testing Position Supine Left Shoulder ROM WFL Yes Testing Position Supine Flexion 70 Abduction 90 External Rotation at 90 degrees 5 Abduction Shoulder ROM Limitations Shoulder ROM Limitations Soft Tissue Tightness,Muscle Weakness,Pain,Swelling Comments PROM right shoulder only in supine with head and neck supported. With shoulder at 90 /90, IR is 10 deg. Pain limitations all ranges with 8/ 10 pain with passive flexion and abduction. Elbow/Forearm Range of Motion Elbow/Forearm Right Elbow/Forearm ROM WFL Yes ROM Testing Position Supine Left Elbow/Forearm ROM WFL Yes Elbow/Forearm ROM Limitations Comments Did not encourage pt to push through supination or pronation d/t biceps tear, post-op repair and bruising PT-OP-M Strength Start: 05/30/20 07:24 Freq: Status: Active Protocol: Document 05/30/20 10:30 MB (Rec: 05/30/20 13:32 MB [id number]) Shoulder Strength Shoulder Manual Muscle Testing Right Comments R shoulder MMT deferred at this time. Left Comments Left UE strength WNLs Elbow/Forearm Strength Elbow and Forearm Manual Muscle Testing Right Extension (C7) 5 Normal Comments Other elbow MMT deferred d/t biceps post-op Left Comments Left elbow WNLs Wrist Strength Wrist Manual Muscle Testing Right Flexion (C7) 5 Normal Extension (C6) 5 Normal Left Comments Left wrist WNLs PT-OP-Q Treatments Start: 05/30/20 07:24 Freq: Status: Active Protocol: Document 06/26/20 15:22 HH (Rec: 06/26/20 16:08 HH [id number]) Therapeutic Exercises Supine Exercises AAROM cane ER Side right Comments 5 reps, abduction today to 80 deg after Neuro re-ed, ER to 40 deg AAROM cane flexion and abduction Side right Comments 5 reps today and improved flexion PROM Supine Exercise Name with PT assisted Reps/Minutes 3 mins Sitting Exercises [place] farzaneh Sitting Exercise Name flexion then abduction with extended elbow Side right Reps/Minutes 10x2 for each direction Comments has pain with ER shoulder , changed it to abd with extended elbow Standing Exercises standing extension Standing Exercise Name with scap retraction Side bilateral Equipment Used PVC pipe Reps/Minutes 8 x2 Comments behind back and lift off, no discomfort noted. Wall crawls scaption to progressive flexion Side right Equipment Used with towel Comments 8 x 2 Manual Therapy Treatment Soft Tissue Mobilization R trap Mobilization Type Sustained Pressure,Trigger Point Release Intensity/Depth Moderate Body Position Supine Comments tenderness noted at distal upper trap Joint Mobilizations posterior glide Joint GH joint Direction post Grade II Body Position Supine Reps/Duration 4 mins Comments with shoulder ER PT-OP-T Assessment and Plan Start: 05/30/20 07:24 Freq: Status: Active Protocol: Document 06/26/20 15:22 (Rec: 06/26/20 16:08 [id number]) Physical Therapy Assessment Goals 5 [employer] Goal (LTG) Pt will present with AROM right shoulder to at least 160 deg flexion and abduction to improve functional use of arm by 08/29/2020. LTG Duration 12 weeks 4 [employer] System Maintenance Worker Goal (LTG) Pt will perform progressive HEP including AROM, progressive strengthening ( both as cleared by surgeon) to prepare for return to work by 08/29/2020. LTG Duration 12 weeks 3 [employer] System Maintenance Worker Goal (LTG) Pt will progress through PROM, AAROM (as cleared by surgeon) and other postural and core exercises with HEP to improve right shoulder function and use by 07/30/2020. LTG Duration 8 weeks 2 [employer] System Maintenance Worker Goal (LTG) Pt will present with right shoulder PROM to at least 160 deg flexion and abduction and 25 deg ER and IR with shoulder in 90/90 in supine by 2019. LTG Duration 8 weeks 1 [employer] System Maintenance Worker Goal (LTG) Pt will present with QuickDASH score reflecting no more than 30% impairment to prepare for return to work by 07/30/2020. LTG Duration 8 weeks Assessment Summary Assessment Pt ben session well with focus on PROM, AAROM. Added supine ER with PVC pipe, shoulder extension with scap retraction , and wall slide with towel. Pt has difficulty achieving full ABD with ER. Physical Therapy Plan Next Visit Focus/Plan Next Note Type Treatment Note Next Visit Plan Progress ROM exercises and manual work, consider progression to pillow case wall slide, standing thread the needle and supine posterior capsule stretch
--- NOTE | 2020-07-13 10:26 | PT.OTN ---
Current Diagnoses Strain of muscle(s) and tendon(s) of the rotator cuff of right shoulder, initial encounter (07/13/20) Physical Therapy Treatment Note PT-OP-A Visit Information Start: 05/30/20 07:24 Freq: Status: Active Protocol: Document 07/13/20 09:46 MB (Rec: 07/13/20 10:22 MB [id number]) Out-Patient Physical Therapy Visit Information Visit Information Visit Type Treatment Note Visit Start Time 09:46 Visit Stop Time 10:25 Total Visit Minutes 39 Visit Number 04/08 PT-OP-B Current Condition Start: 05/30/20 07:24 Freq: Status: Active Protocol: Document 05/30/20 10:30 MB (Rec: 05/30/20 10:49 MB [id number]) Current Condition History of Current Condition Onset Date Chronic injury, right shoulder arthroscopic surgery 2019 Current Complaints Pain and not being able to use right arm, trouble sleeping History of Current Condition 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 Pt reports chronic right shoulder injury including biceps tear, bone spurs. He underwent arthroscopic surgery on 05/05/2020. He has an abduction sling, was given pendulum exercises and is currently NWB, no active movement. He is moving his right hand. Pt was icing. He reports 4/10 right anterior and posterior shoulder pain. He is sleeping in the bed with sling on. He sees doctor again in six weeks and should hear about sling wear. PMH: Left rotator cuff surgery 10 years ago, left ACL repair x3, left ulnar nerve transposition, TIA 2019 (pt had vision changes) and pt denies residual symptoms, pt takes statin and aspirin, ulcerative colitis and pt has trouble with oral medications. His blood pressure fluctuates . Pt reports occ tingling around incision areas on top of right shoulder. Pt has five arthroscopic incisions. Treatment Goals Patient/Caregiver Goals To get back to normal. PT-OP-C Subjective Start: 05/30/20 07:24 Freq: Status: Active Protocol: Document 07/13/20 09:46 MB (Rec: 07/13/20 10:22 MB [id number]) OP-PT Subjective Patient Comments Patient Comments I'm sleeping fine. Everything tends to be good. I'm looking forward to moving my arm by itself. I'm 10 weeks out tomorrow. PT-OP-K Range of Motion Start: 05/30/20 07:24 Freq: Status: Active Protocol: Document 05/30/20 10:30 MB (Rec: 05/30/20 13:32 MB [id number]) Cervical Spine Range of Motion Cervical Spine Active Testing Position Standing Flexion 35 Extension 45 Rotation Left 60 Rotation Right 55 Lateral Flexion Left 20 Lateral Flexion Right 20 Shoulder Goniometric Range of Motion Shoulder Right Shoulder ROM WFL No Testing Position Supine Left Shoulder ROM WFL Yes Testing Position Supine Flexion 70 Abduction 90 External Rotation at 90 degrees 5 Abduction Shoulder ROM Limitations Shoulder ROM Limitations Soft Tissue Tightness,Muscle Weakness,Pain,Swelling Comments PROM right shoulder only in supine with head and neck supported. With shoulder at 90 /90, IR is 10 deg. Pain limitations all ranges with 8/ 10 pain with passive flexion and abduction. Elbow/Forearm Range of Motion Elbow/Forearm Right Elbow/Forearm ROM WFL Yes ROM Testing Position Supine Left Elbow/Forearm ROM WFL Yes Elbow/Forearm ROM Limitations Comments Did not encourage pt to push through supination or pronation d/t biceps tear, post-op repair and bruising PT-OP-M Strength Start: 05/30/20 07:24 Freq: Status: Active Protocol: Document 05/30/20 10:30 MB (Rec: 05/30/20 13:32 MB [id number]) Shoulder Strength Shoulder Manual Muscle Testing Right Comments R shoulder MMT deferred at this time. Left Comments Left UE strength WNLs Elbow/Forearm Strength Elbow and Forearm Manual Muscle Testing Right Extension (C7) 5 Normal Comments Other elbow MMT deferred d/t biceps post-op Left Comments Left elbow WNLs Wrist Strength Wrist Manual Muscle Testing Right Flexion (C7) 5 Normal Extension (C6) 5 Normal Left Comments Left wrist WNLs PT-OP-Q Treatments Start: 05/30/20 07:24 Freq: Status: Active Protocol: Document 07/13/20 09:46 MB (Rec: 07/13/20 10:22 MB [id number]) Therapeutic Exercises Supine Exercises Posterior capsule stretch Comments 45 sec hold right arm Sitting Exercises Reduced lever arm (elbow bent) AROM right shoulder flexion, abduction to 90 deg, extension to tolerance Comments 10 reps all slowly and can perform standing as well Standing Exercises Pillow case flexion Comments Performed today x5 reps without complaints Wall crawls scaption to progressive flexion Comments Flexion and abduction today right arm to 130 deg Manual Therapy Treatment Other Other Manual Treatments Prone: B scapular mobs, thoracic PA mobs grade II-IV, MWM right levator scapula with PT supporting right proximal arm and pt abducting arm and PT providing trigger point pressure, rib recoil B and improved paraspinal tension. PT-OP-T Assessment and Plan Start: 05/30/20 07:24 Freq: Status: Active Protocol: Document 07/13/20 09:46 MB (Rec: 07/13/20 10:22 MB [id number]) Physical Therapy Assessment Goals 5 Transportation Maintenance Specialist Goal (LTG) Pt will present with AROM right shoulder to at least 160 deg flexion and abduction to improve functional use of arm by 08/29/2020. LTG Duration 12 weeks 4 Ret[employer] Goal (LTG) Pt will perform progressive HEP including AROM, progressive strengthening ( both as cleared by surgeon) to prepare for return to work by 08/29/2020. LTG Duration 12 weeks 3 Retirement Goal (LTG) Pt will progress through PROM, AAROM (as cleared by surgeon) and other postural and core exercises with HEP to improve right shoulder function and use by 07/30/2020. LTG Duration 8 weeks 2 Transportation Maintenance Specialist Goal (LTG) Pt will present with right shoulder PROM to at least 160 deg flexion and abduction and 25 deg ER and IR with shoulder in 90/90 in supine by 2019. LTG Duration 8 weeks 1 Transportation Maintenance Specialist Goal (LTG) Pt will present with QuickDASH score reflecting no more than 30% impairment to prepare for return to work by 07/30/2020. LTG Duration 8 weeks Assessment Summary Assessment Pt is 10 weeks post-op tomorrow and so started gentle AROM right shoulder with reduced lever arm and range. PT ed pt multiple times to stop any exercises that cause concern or pain. Pt to progress to tolerance, also progressed pillow AAROM and posterior capsule stretch. Ongoing progression. Physical Therapy Plan Frequency and Duration Frequency of Treatment 2x/Week Duration of Treatment 12 weeks Plan of Care Start Date 05/30/20 Plan of Care End Date 08/29/20 Therapeutic Interventions Therapeutic Interventions Aquatic Therapy,Home Exercise Program,Manual Therapy, Neuromuscular Re-education, Patient/Caregiver Education, Self-Care/Home Management,Soft Tissue Mobilization,Taping, Therapeutic Activities, Therapeutic Exercises Modalities Cold Pack/Ice Massage,Electric Stimulation,Hot Packs, Ultrasound Next Visit Focus/Plan Next Note Type Treatment Note Next Visit Plan Progress ROM exercises and manual work, standing thread the needle for thoracic mobility, wall walking without band around wrists/wipe on and wipe off no band and then progress to band.
--- NOTE | 2020-07-20 10:30 | PT.OTN ---
Current Diagnoses Strain of muscle(s) and tendon(s) of the rotator cuff of right shoulder, initial encounter (07/20/20) Physical Therapy Treatment Note PT-OP-A Visit Information Start: 05/30/20 07:24 Freq: Status: Active Protocol: Document 07/20/20 09:48 MB (Rec: 07/20/20 10:27 MB [id number]) Out-Patient Physical Therapy Visit Information Visit Information Visit Type Treatment Note Visit Start Time 09:48 Visit Stop Time 10:30 Total Visit Minutes 42 Visit Number 05/09 PT-OP-B Current Condition Start: 05/30/20 07:24 Freq: Status: Active Protocol: Document 05/30/20 10:30 MB (Rec: 05/30/20 10:49 MB [id number]) Current Condition History of Current Condition Onset Date Chronic injury, right shoulder arthroscopic surgery 2019 Current Complaints Pain and not being able to use right arm, trouble sleeping History of Current Condition 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 Pt reports chronic right shoulder injury including biceps tear, bone spurs. He underwent arthroscopic surgery on 05/05/2020. He has an abduction sling, was given pendulum exercises and is currently NWB, no active movement. He is moving his right hand. Pt was icing. He reports 4/10 right anterior and posterior shoulder pain. He is sleeping in the bed with sling on. He sees doctor again in six weeks and should hear about sling wear. PMH: Left rotator cuff surgery 10 years ago, left ACL repair x3, left ulnar nerve transposition, TIA 2019 (pt had vision changes) and pt denies residual symptoms, pt takes statin and aspirin, ulcerative colitis and pt has trouble with oral medications. His blood pressure fluctuates . Pt reports occ tingling around incision areas on top of right shoulder. Pt has five arthroscopic incisions. Treatment Goals Patient/Caregiver Goals To get back to normal. PT-OP-C Subjective Start: 05/30/20 07:24 Freq: Status: Active Protocol: Document 07/20/20 09:48 MB (Rec: 07/20/20 10:27 MB [id number]) OP-PT Subjective Patient Comments Patient Comments I'm doing good. Pt states that his HEP are going well. PT-OP-K Range of Motion Start: 05/30/20 07:24 Freq: Status: Active Protocol: Document 05/30/20 10:30 MB (Rec: 05/30/20 13:32 MB [id number]) Cervical Spine Range of Motion Cervical Spine Active Testing Position Standing Flexion 35 Extension 45 Rotation Left 60 Rotation Right 55 Lateral Flexion Left 20 Lateral Flexion Right 20 Shoulder Goniometric Range of Motion Shoulder Right Shoulder ROM WFL No Testing Position Supine Left Shoulder ROM WFL Yes Testing Position Supine Flexion 70 Abduction 90 External Rotation at 90 degrees 5 Abduction Shoulder ROM Limitations Shoulder ROM Limitations Soft Tissue Tightness,Muscle Weakness,Pain,Swelling Comments PROM right shoulder only in supine with head and neck supported. With shoulder at 90 /90, IR is 10 deg. Pain limitations all ranges with 8/ 10 pain with passive flexion and abduction. Elbow/Forearm Range of Motion Elbow/Forearm Right Elbow/Forearm ROM WFL Yes ROM Testing Position Supine Left Elbow/Forearm ROM WFL Yes Elbow/Forearm ROM Limitations Comments Did not encourage pt to push through supination or pronation d/t biceps tear, post-op repair and bruising PT-OP-M Strength Start: 05/30/20 07:24 Freq: Status: Active Protocol: Document 05/30/20 10:30 MB (Rec: 05/30/20 13:32 MB [id number]) Shoulder Strength Shoulder Manual Muscle Testing Right Comments R shoulder MMT deferred at this time. Left Comments Left UE strength WNLs Elbow/Forearm Strength Elbow and Forearm Manual Muscle Testing Right Extension (C7) 5 Normal Comments Other elbow MMT deferred d/t biceps post-op Left Comments Left elbow WNLs Wrist Strength Wrist Manual Muscle Testing Right Flexion (C7) 5 Normal Extension (C6) 5 Normal Left Comments Left wrist WNLs PT-OP-Q Treatments Start: 05/30/20 07:24 Freq: Status: Active Protocol: Document 07/20/20 09:48 MB (Rec: 07/20/20 10:27 MB [id number]) Cardio Equipment Upper Body Ergometer (UBE) Duration (Minutes) 10 Other Alternate 2.5 forward and 2.5 backwards Therapeutic Exercises Supine Exercises Posterior capsule stretch Side right Equipment Used Small pool noodle Comments 5 reps, resisted isometric AAROM cane ER Side right Equipment Used Small pool noodle Comments 5 reps AAROM cane flexion and abduction Side right Equipment Used Small pool noodle Comments 5 reps Prone Exercises Lift offs Side bilateral Reps/Minutes 10 Comments Scapular depression first and then extension/horizontal abd with arms strai Standing Exercises Shoulder extension with cane Comments 2 reps, too easy, so not added to HEP PT-OP-T Assessment and Plan Start: 05/30/20 07:24 Freq: Status: Active Protocol: Document 07/20/20 09:48 MB (Rec: 07/20/20 10:27 MB [id number]) Physical Therapy Assessment Goals 5 Towel Hemmer Goal (LTG) Pt will present with AROM right shoulder to at least 160 deg flexion and abduction to improve functional use of arm by 08/29/2020. LTG Duration 12 weeks 4 Towel Hemmer Goal (LTG) Pt will perform progressive HEP including AROM, progressive strengthening ( both as cleared by surgeon) to prepare for return to work by 08/29/2020. LTG Duration 12 weeks 3 Towel Hemmer Goal (LTG) Pt will progress through PROM, AAROM (as cleared by surgeon) and other postural and core exercises with HEP to improve right shoulder function and use by 07/30/2020. LTG Duration 8 weeks 2 Towel Hemmer Goal (LTG) Pt will present with right shoulder PROM to at least 160 deg flexion and abduction and 25 deg ER and IR with shoulder in 90/90 in supine by 2019. LTG Duration 8 weeks 1 Residential Goal (LTG) Pt will present with QuickDASH score reflecting no more than 30% impairment to prepare for return to work by 07/30/2020. LTG Duration 8 weeks Assessment Summary Assessment Pt con't to progress with HEP. Ice after treatment today d/t muscles tired after increased work. Pt takes video of PT doing his new exercise to use at home and he is going to look for pool noodle. Physical Therapy Plan Frequency and Duration Frequency of Treatment 2x/Week Duration of Treatment 12 weeks Plan of Care Start Date 05/30/20 Plan of Care End Date 08/29/20 Therapeutic Interventions Therapeutic Interventions Aquatic Therapy,Home Exercise Program,Manual Therapy, Neuromuscular Re-education, Patient/Caregiver Education, Self-Care/Home Management,Soft Tissue Mobilization,Taping, Therapeutic Activities, Therapeutic Exercises Modalities Cold Pack/Ice Massage,Electric Stimulation,Hot Packs, Ultrasound Next Visit Focus/Plan Next Note Type Treatment Note Next Visit Plan Progress manual work, standing thread the needle for thoracic mobility, wall walking without band around wrists/wipe on and wipe off no band and then progress to band.
--- NOTE | 2020-07-27 10:34 | PT.OTN ---
Current Diagnoses Strain of muscle(s) and tendon(s) of the rotator cuff of right shoulder, initial encounter (07/27/20) Physical Therapy Treatment Note PT-OP-A Visit Information Start: 05/30/20 07:24 Freq: Status: Active Protocol: Document 07/27/20 09:47 MB (Rec: 07/27/20 10:34 MB [id number]) Out-Patient Physical Therapy Visit Information Visit Information Visit Type Treatment Note Visit Start Time 09:47 Visit Stop Time 10:30 Total Visit Minutes 43 Visit Number 06/09 PT-OP-B Current Condition Start: 05/30/20 07:24 Freq: Status: Active Protocol: Document 05/30/20 10:30 MB (Rec: 05/30/20 10:49 MB [id number]) Current Condition History of Current Condition Onset Date Chronic injury, right shoulder arthroscopic surgery 2019 Current Complaints Pain and not being able to use right arm, trouble sleeping History of Current Condition 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 Pt reports chronic right shoulder injury including biceps tear, bone spurs. He underwent arthroscopic surgery on 05/05/2020. He has an abduction sling, was given pendulum exercises and is currently NWB, no active movement. He is moving his right hand. Pt was icing. He reports 4/10 right anterior and posterior shoulder pain. He is sleeping in the bed with sling on. He sees doctor again in six weeks and should hear about sling wear. PMH: Left rotator cuff surgery 10 years ago, left ACL repair x3, left ulnar nerve transposition, TIA 2019 (pt had vision changes) and pt denies residual symptoms, pt takes statin and aspirin, ulcerative colitis and pt has trouble with oral medications. His blood pressure fluctuates . Pt reports occ tingling around incision areas on top of right shoulder. Pt has five arthroscopic incisions. Treatment Goals Patient/Caregiver Goals To get back to normal. PT-OP-C Subjective Start: 05/30/20 07:24 Freq: Status: Active Protocol: Document 07/27/20 09:47 MB (Rec: 07/27/20 10:34 MB [id number]) OP-PT Subjective Patient Comments Patient Comments I'm doing well. PT-OP-K Range of Motion Start: 05/30/20 07:24 Freq: Status: Active Protocol: Document 05/30/20 10:30 MB (Rec: 05/30/20 13:32 MB [id number]) Cervical Spine Range of Motion Cervical Spine Active Testing Position Standing Flexion 35 Extension 45 Rotation Left 60 Rotation Right 55 Lateral Flexion Left 20 Lateral Flexion Right 20 Shoulder Goniometric Range of Motion Shoulder Right Shoulder ROM WFL No Testing Position Supine Left Shoulder ROM WFL Yes Testing Position Supine Flexion 70 Abduction 90 External Rotation at 90 degrees 5 Abduction Shoulder ROM Limitations Shoulder ROM Limitations Soft Tissue Tightness,Muscle Weakness,Pain,Swelling Comments PROM right shoulder only in supine with head and neck supported. With shoulder at 90 /90, IR is 10 deg. Pain limitations all ranges with 8/ 10 pain with passive flexion and abduction. Elbow/Forearm Range of Motion Elbow/Forearm Right Elbow/Forearm ROM WFL Yes ROM Testing Position Supine Left Elbow/Forearm ROM WFL Yes Elbow/Forearm ROM Limitations Comments Did not encourage pt to push through supination or pronation d/t biceps tear, post-op repair and bruising PT-OP-M Strength Start: 05/30/20 07:24 Freq: Status: Active Protocol: Document 05/30/20 10:30 MB (Rec: 05/30/20 13:32 MB [id number]) Shoulder Strength Shoulder Manual Muscle Testing Right Comments R shoulder MMT deferred at this time. Left Comments Left UE strength WNLs Elbow/Forearm Strength Elbow and Forearm Manual Muscle Testing Right Extension (C7) 5 Normal Comments Other elbow MMT deferred d/t biceps post-op Left Comments Left elbow WNLs Wrist Strength Wrist Manual Muscle Testing Right Flexion (C7) 5 Normal Extension (C6) 5 Normal Left Comments Left wrist WNLs PT-OP-Q Treatments Start: 05/30/20 07:24 Freq: Status: Active Protocol: Document 07/27/20 09:47 MB (Rec: 07/27/20 10:34 MB [id number]) Cardio Equipment Upper Body Ergometer (UBE) Duration (Minutes) 10 Other Alternate 2.5 forward and 2.5 backwards Therapeutic Exercises Supine Exercises PNF 1 and 2 on pool noodle Side bilateral Comments More reps on the right (10), cues for form Posterior capsule stretch Side right Equipment Used Small pool noodle Comments 5 reps, resisted isometric AAROM cane ER Side right Equipment Used Small pool noodle Comments 5 reps AAROM cane flexion and abduction Side right Equipment Used Small pool noodle Comments 5 reps Sidelying Exercises ER with towel roll and hand weight Side bilateral Comments 2 lb right arm and 3 lb Standing Exercises Thread the needle standing near wall Side bilateral Comments 3 reps and cues to breathe end -range Deltoid STM with racquet ball at wall Side right Comments Re-ed today and pt performs Racquet ball STM intrascapular area and rib mobility Side right Comments Re-ed today and pt performs, no pain, d/c PT-OP-T Assessment and Plan Start: 05/30/20 07:24 Freq: Status: Active Protocol: Document 07/27/20 09:47 MB (Rec: 07/27/20 10:34 MB [id number]) Physical Therapy Assessment Goals 5 Sign Manufacturer Goal (LTG) Pt will present with AROM right shoulder to at least 160 deg flexion and abduction to improve functional use of arm by 08/29/2020. LTG Duration 12 weeks 4 Custodial Goal (LTG) Pt will perform progressive HEP including AROM, progressive strengthening ( both as cleared by surgeon) to prepare for return to work by 08/29/2020. LTG Duration 12 weeks 3 Custodial Goal (LTG) Pt will progress through PROM, AAROM (as cleared by surgeon) and other postural and core exercises with HEP to improve right shoulder function and use by 07/30/2020. LTG Duration 8 weeks 2 Sign Manufacturer Goal (LTG) Pt will present with right shoulder PROM to at least 160 deg flexion and abduction and 25 deg ER and IR with shoulder in 90/90 in supine by 2019. LTG Duration 8 weeks 1 Custodial Goal (LTG) Pt will present with QuickDASH score reflecting no more than 30% impairment to prepare for return to work by 07/30/2020. LTG Duration 8 weeks Assessment Summary Assessment Progressed ROM and initiated ER strengthening today in side lying. Pt con't to do well with PT improving range and use of arm. Progress note soon and con't progresison. Physical Therapy Plan Frequency and Duration Frequency of Treatment 2x/Week Duration of Treatment 12 weeks Plan of Care Start Date 05/30/20 Plan of Care End Date 08/29/20 Therapeutic Interventions Therapeutic Interventions Aquatic Therapy,Home Exercise Program,Manual Therapy, Neuromuscular Re-education, Patient/Caregiver Education, Self-Care/Home Management,Soft Tissue Mobilization,Taping, Therapeutic Activities, Therapeutic Exercises Modalities Cold Pack/Ice Massage,Electric Stimulation,Hot Packs, Ultrasound Next Visit Focus/Plan Next Note Type Progress Note Next Visit Plan Progress manual work, wall walking without band around wrists/wipe on and wipe off no band and then progress to band.
--- NOTE | 2020-08-01 11:28 | PT.OTN ---
Current Diagnoses Strain of muscle(s) and tendon(s) of the rotator cuff of right shoulder, initial encounter (08/01/20) Physical Therapy Treatment Note PT-OP-A Visit Information Start: 05/30/20 07:24 Freq: Status: Active Protocol: Document 08/01/20 09:47 MB (Rec: 08/01/20 10:33 MB [id number]) Out-Patient Physical Therapy Visit Information Visit Information Visit Type Progress Note Visit Start Time 09:47 Visit Stop Time 10:30 Total Visit Minutes 43 Visit Number 07/09 PT-OP-B Current Condition Start: 05/30/20 07:24 Freq: Status: Active Protocol: Document 05/30/20 10:30 MB (Rec: 05/30/20 10:49 MB [id number]) Current Condition History of Current Condition Onset Date Chronic injury, right shoulder arthroscopic surgery 2019 Current Complaints Pain and not being able to use right arm, trouble sleeping History of Current Condition 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 Pt reports chronic right shoulder injury including biceps tear, bone spurs. He underwent arthroscopic surgery on 05/05/2020. He has an abduction sling, was given pendulum exercises and is currently NWB, no active movement. He is moving his right hand. Pt was icing. He reports 4/10 right anterior and posterior shoulder pain. He is sleeping in the bed with sling on. He sees doctor again in six weeks and should hear about sling wear. PMH: Left rotator cuff surgery 10 years ago, left ACL repair x3, left ulnar nerve transposition, TIA 2019 (pt had vision changes) and pt denies residual symptoms, pt takes statin and aspirin, ulcerative colitis and pt has trouble with oral medications. His blood pressure fluctuates . Pt reports occ tingling around incision areas on top of right shoulder. Pt has five arthroscopic incisions. Treatment Goals Patient/Caregiver Goals To get back to normal. PT-OP-C Subjective Start: 05/30/20 07:24 Freq: Status: Active Protocol: Document 08/01/20 09:47 MB (Rec: 08/01/20 10:33 MB [id number]) OP-PT Subjective Patient Comments Patient Comments This part of my arm has been killing me the last couple of days. Pt points to distal lateral humeral area near triceps insertion. He fell asleep on it and had some right hand numbness PT-OP-K Range of Motion Start: 05/30/20 07:24 Freq: Status: Active Protocol: Document 05/30/20 10:30 MB (Rec: 05/30/20 13:32 MB [id number]) Cervical Spine Range of Motion Cervical Spine Active Testing Position Standing Flexion 35 Extension 45 Rotation Left 60 Rotation Right 55 Lateral Flexion Left 20 Lateral Flexion Right 20 Shoulder Goniometric Range of Motion Shoulder Right Shoulder ROM WFL No Testing Position Supine Left Shoulder ROM WFL Yes Testing Position Supine Flexion 70 Abduction 90 External Rotation at 90 degrees 5 Abduction Shoulder ROM Limitations Shoulder ROM Limitations Soft Tissue Tightness,Muscle Weakness,Pain,Swelling Comments PROM right shoulder only in supine with head and neck supported. With shoulder at 90 /90, IR is 10 deg. Pain limitations all ranges with 8/ 10 pain with passive flexion and abduction. Elbow/Forearm Range of Motion Elbow/Forearm Right Elbow/Forearm ROM WFL Yes ROM Testing Position Supine Left Elbow/Forearm ROM WFL Yes Elbow/Forearm ROM Limitations Comments Did not encourage pt to push through supination or pronation d/t biceps tear, post-op repair and bruising PT-OP-M Strength Start: 05/30/20 07:24 Freq: Status: Active Protocol: Document 05/30/20 10:30 MB (Rec: 05/30/20 13:32 MB [id number]) Shoulder Strength Shoulder Manual Muscle Testing Right Comments R shoulder MMT deferred at this time. Left Comments Left UE strength WNLs Elbow/Forearm Strength Elbow and Forearm Manual Muscle Testing Right Extension (C7) 5 Normal Comments Other elbow MMT deferred d/t biceps post-op Left Comments Left elbow WNLs Wrist Strength Wrist Manual Muscle Testing Right Flexion (C7) 5 Normal Extension (C6) 5 Normal Left Comments Left wrist WNLs PT-OP-Q Treatments Start: 05/30/20 07:24 Freq: Status: Active Protocol: Document 08/01/20 09:47 MB (Rec: 08/01/20 10:33 MB [id number]) Cardio Equipment Upper Body Ergometer (UBE) Duration (Minutes) 10 Other Alternate 2.5 forward and 2.5 backwards Therapeutic Exercises Supine Exercises Self-STM right triceps and quick icing Side right Comments PT ed pt to perform today after PT performs on pt Standing Exercises 1 Side bilateral Comments 5 reps shoulder flexion and abduction Other Exercises Reviewed HEP exercises verbally Comments Reviewed these during progress note today Manual Therapy Treatment Other Other Manual Treatments STM and MWM right triceps with PT performing TrP pressure and pt performing AROM right elbow flexion and extension, 1 ' quick icing after treatment Self-Care/Home Management Treatment Education Other Education Ed pt in benefits of pillow support for UEs and quick icing right distal triceps area PT-OP-T Assessment and Plan Start: 05/30/20 07:24 Freq: Status: Active Protocol: Document 08/01/20 09:47 MB (Rec: 08/01/20 10:33 MB [id number]) Physical Therapy Assessment Goals 5 [facility] Goal (LTG) Pt will present with AROM right shoulder to at least 160 deg flexion and abduction to improve functional use of arm by 10/09/2020. 08/01/2020: AROM right shoulder flexion 142 deg (4 reps) and abduction to 130 deg LTG Duration 12 weeks 4 [facility] Goal (LTG) Pt will perform progressive HEP including AROM, progressive strengthening for shoulder and core, thoracic and cervical mobility to prepare for return to normal activities by 10/09/2020. 08/01/2021: Pt is performing progressive exercises LTG Duration 12 weeks 2 [facility] Goal (LTG) Pt will present with right shoulder AROM 70 deg ER and IR with shoulder in 90/90 in supine by 10/09/2020. 08/01/2020: Pt presents with PROM right shoulder ER to 60 deg and IR to 35 deg with shoulder in 90/90 today LTG Duration 12 weeks 1 Young Adult Librarian Goal (LTG) Pt will present with QuickDASH score reflecting no more than 20% impairment to prepare for return to work by 10/09/2020. 08/01/2020: QuickDASH score reflects 30% impairment. LTG Duration 12 weeks Assessment Summary Assessment Pt has progressed towards all goals since starting PT. These include QuickDASH score, right shoulder range of motion , and performance of exercises . He will benefit from ongoing PT to further improve right shoulder ROM, functional use and strength and to decrease pain. His current complaints of distal right triceps discomfort may be related to increased right shoulder mobility and sleeping on his arm poorly. Ed pt today in proper pillow use for B UE support with side sleeping. Physical Therapy Plan Frequency and Duration Frequency of Treatment 2x/Week Duration of Treatment 12 weeks Plan of Care Start Date 08/01/20 Plan of Care End Date 10/09/20 Therapeutic Interventions Therapeutic Interventions Canalithic Repositioning, Coordination Training,Home Exercise Program,Joint Mobilizations,Manual Therapy, Neuromuscular Re-education, Patient/Caregiver Education, Self-Care/Home Management,Soft Tissue Mobilization,Taping, Therapeutic Activities, Therapeutic Exercises Modalities Cold Pack/Ice Massage,Electric Stimulation,Hot Packs, Ultrasound Next Visit Focus/Plan Next Note Type Treatment Note Next Visit Plan Consider Body Blade. Progress manual work, wall walking without band around wrists/ wipe on and wipe off no band and then progress to band.
--- NOTE | 2020-08-01 11:28 | PT.OPPOC ---
Physical, Occupational & Speech Therapy At [facility] Current Diagnoses Strain of muscle(s) and tendon(s) of the rotator cuff of right shoulder, initial encounter (08/01/20) Visit Care Team Role Provider Type Matthew Pabon MD Family Provider Physician Primary Care Provider Specialty: Family Practice Address: [address] [place] [address], [id number] Email: [email or web address] Dylan Dumont Attending Provider Non-Staff Referring Provider Specialty: Medical Address: [facility] [address], [place], [address] Email: Plan Of Care PT-OP-T Assessment and Plan Start: 05/30/20 07:24 Freq: Status: Active Protocol: Document 08/01/20 09:47 MB (Rec: 08/01/20 10:33 MB [id number]) Physical Therapy Assessment Goals 5 Correction Goal (LTG) Pt will present with AROM right shoulder to at least 160 deg flexion and abduction to improve functional use of arm by 10/09/2020. 08/01/2020: AROM right shoulder flexion 142 deg (4 reps) and abduction to 130 deg LTG Duration 12 weeks 4 Correction Goal (LTG) Pt will perform progressive HEP including AROM, progressive strengthening for shoulder and core, thoracic and cervical mobility to prepare for return to normal activities by 10/09/2020. 08/01/2021: Pt is performing progressive exercises LTG Duration 12 weeks 2 Fence Manufacture Supervisor Goal (LTG) Pt will present with right shoulder AROM 70 deg ER and IR with shoulder in 90/90 in supine by 10/09/2020. 08/01/2020: Pt presents with PROM right shoulder ER to 60 deg and IR to 35 deg with shoulder in 90/90 today LTG Duration 12 weeks 1 Fence Manufacture Supervisor Goal (LTG) Pt will present with QuickDASH score reflecting no more than 20% impairment to prepare for return to work by 10/09/2020. 08/01/2020: QuickDASH score reflects 30% impairment. LTG Duration 12 weeks Assessment Summary Assessment Pt has progressed towards all goals since starting PT. These include QuickDASH score, right shoulder range of motion , and performance of exercises . He will benefit from ongoing PT to further improve right shoulder ROM, functional use and strength and to decrease pain. His current complaints of distal right triceps discomfort may be related to increased right shoulder mobility and sleeping on his arm poorly. Ed pt today in proper pillow use for B UE support with side sleeping. Physical Therapy Plan Frequency and Duration Frequency of Treatment 2x/Week Duration of Treatment 12 weeks Plan of Care Start Date 08/01/20 Plan of Care End Date 10/09/20 Therapeutic Interventions Therapeutic Interventions Canalithic Repositioning, Coordination Training,Home Exercise Program,Joint Mobilizations,Manual Therapy, Neuromuscular Re-education, Patient/Caregiver Education, Self-Care/Home Management,Soft Tissue Mobilization,Taping, Therapeutic Activities, Therapeutic Exercises Modalities Cold Pack/Ice Massage,Electric Stimulation,Hot Packs, Ultrasound Next Visit Focus/Plan Next Note Type Treatment Note Next Visit Plan Consider Body Blade. Progress manual work, wall walking without band around wrists/ wipe on and wipe off no band and then progress to band. Plan of Care Dates Plan of Care Start Date 08/01/20 Plan of Care End Date 10/09/20 Electronically Signed by: Wandy Poon, PT 08/01/20 0202 Please Sign and Return: I have reviewed this Plan of Care and certify that the skilled therapy services above are required to meet the patient?s needs. Physician Signature Date Printed Name and Credentials Clinical Instructor Signature Printed Name and Credentials
--- NOTE | 2020-08-03 10:30 | PT.OTN ---
Current Diagnoses Strain of muscle(s) and tendon(s) of the rotator cuff of right shoulder, initial encounter (08/03/20) Physical Therapy Treatment Note PT-OP-A Visit Information Start: 05/30/20 07:24 Freq: Status: Active Protocol: Document 08/03/20 09:45 MB (Rec: 08/03/20 10:28 MB [id number]) Out-Patient Physical Therapy Visit Information Visit Information Visit Type Treatment Note Visit Start Time 09:45 Visit Stop Time 10:30 Total Visit Minutes 45 Visit Number 08/09 PT-OP-B Current Condition Start: 05/30/20 07:24 Freq: Status: Active Protocol: Document 05/30/20 10:30 MB (Rec: 05/30/20 10:49 MB [id number]) Current Condition History of Current Condition Onset Date Chronic injury, right shoulder arthroscopic surgery 2019 Current Complaints Pain and not being able to use right arm, trouble sleeping History of Current Condition 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 Pt reports chronic right shoulder injury including biceps tear, bone spurs. He underwent arthroscopic surgery on 05/05/2020. He has an abduction sling, was given pendulum exercises and is currently NWB, no active movement. He is moving his right hand. Pt was icing. He reports 4/10 right anterior and posterior shoulder pain. He is sleeping in the bed with sling on. He sees doctor again in six weeks and should hear about sling wear. PMH: Left rotator cuff surgery 10 years ago, left ACL repair x3, left ulnar nerve transposition, TIA 2019 (pt had vision changes) and pt denies residual symptoms, pt takes statin and aspirin, ulcerative colitis and pt has trouble with oral medications. His blood pressure fluctuates . Pt reports occ tingling around incision areas on top of right shoulder. Pt has five arthroscopic incisions. Treatment Goals Patient/Caregiver Goals To get back to normal. PT-OP-C Subjective Start: 05/30/20 07:24 Freq: Status: Active Protocol: Document 08/03/20 09:45 MB (Rec: 08/03/20 10:28 MB [id number]) OP-PT Subjective Patient Comments Patient Comments I'm doing great. PT-OP-K Range of Motion Start: 05/30/20 07:24 Freq: Status: Active Protocol: Document 05/30/20 10:30 MB (Rec: 05/30/20 13:32 MB [id number]) Cervical Spine Range of Motion Cervical Spine Active Testing Position Standing Flexion 35 Extension 45 Rotation Left 60 Rotation Right 55 Lateral Flexion Left 20 Lateral Flexion Right 20 Shoulder Goniometric Range of Motion Shoulder Right Shoulder ROM WFL No Testing Position Supine Left Shoulder ROM WFL Yes Testing Position Supine Flexion 70 Abduction 90 External Rotation at 90 degrees 5 Abduction Shoulder ROM Limitations Shoulder ROM Limitations Soft Tissue Tightness,Muscle Weakness,Pain,Swelling Comments PROM right shoulder only in supine with head and neck supported. With shoulder at 90 /90, IR is 10 deg. Pain limitations all ranges with 8/ 10 pain with passive flexion and abduction. Elbow/Forearm Range of Motion Elbow/Forearm Right Elbow/Forearm ROM WFL Yes ROM Testing Position Supine Left Elbow/Forearm ROM WFL Yes Elbow/Forearm ROM Limitations Comments Did not encourage pt to push through supination or pronation d/t biceps tear, post-op repair and bruising PT-OP-M Strength Start: 05/30/20 07:24 Freq: Status: Active Protocol: Document 05/30/20 10:30 MB (Rec: 05/30/20 13:32 MB [id number]) Shoulder Strength Shoulder Manual Muscle Testing Right Comments R shoulder MMT deferred at this time. Left Comments Left UE strength WNLs Elbow/Forearm Strength Elbow and Forearm Manual Muscle Testing Right Extension (C7) 5 Normal Comments Other elbow MMT deferred d/t biceps post-op Left Comments Left elbow WNLs Wrist Strength Wrist Manual Muscle Testing Right Flexion (C7) 5 Normal Extension (C6) 5 Normal Left Comments Left wrist WNLs PT-OP-Q Treatments Start: 05/30/20 07:24 Freq: Status: Active Protocol: Document 08/03/20 09:45 MB (Rec: 08/03/20 10:28 MB [id number]) Cardio Equipment Upper Body Ergometer (UBE) Duration (Minutes) 10 Other Alternate 2.5 forward and 2.5 backwards Manual Therapy Treatment Other Other Manual Treatments B scapular mobs, rib recoil thoracic spine prone, MWM right triceps and biceps with PT holding TrP and pt performing active elbow flexion and extension PT-OP-T Assessment and Plan Start: 05/30/20 07:24 Freq: Status: Active Protocol: Document 08/03/20 09:45 MB (Rec: 08/03/20 10:28 MB [id number]) Physical Therapy Assessment Goals 5 Food Cashier Goal (LTG) Pt will present with AROM right shoulder to at least 160 deg flexion and abduction to improve functional use of arm by 10/09/2020. 08/01/2020: AROM right shoulder flexion 142 deg (4 reps) and abduction to 130 deg LTG Duration 12 weeks 4 [facility] Goal (LTG) Pt will perform progressive HEP including AROM, progressive strengthening for shoulder and core, thoracic and cervical mobility to prepare for return to normal activities by 10/09/2020. 08/01/2021: Pt is performing progressive exercises LTG Duration 12 weeks 2 [facility] Goal (LTG) Pt will present with right shoulder AROM 70 deg ER and IR with shoulder in 90/90 in supine by 10/09/2020. 08/01/2020: Pt presents with PROM right shoulder ER to 60 deg and IR to 35 deg with shoulder in 90/90 today LTG Duration 12 weeks 1 Food Cashier Goal (LTG) Pt will present with QuickDASH score reflecting no more than 20% impairment to prepare for return to work by 10/09/2020. 08/01/2020: QuickDASH score reflects 30% impairment. LTG Duration 12 weeks Assessment Summary Assessment Manual work today to further improve thoracic, scapular and shoulder mobility and pt responds well to treatment. Con't manual work and exercise progression. Physical Therapy Plan Frequency and Duration Frequency of Treatment 2x/Week Duration of Treatment 12 weeks Plan of Care Start Date 08/01/20 Plan of Care End Date 10/09/20 Therapeutic Interventions Therapeutic Interventions Canalithic Repositioning, Coordination Training,Home Exercise Program,Joint Mobilizations,Manual Therapy, Neuromuscular Re-education, Patient/Caregiver Education, Self-Care/Home Management,Soft Tissue Mobilization,Taping, Therapeutic Activities, Therapeutic Exercises Modalities Cold Pack/Ice Massage,Electric Stimulation,Hot Packs, Ultrasound Next Visit Focus/Plan Next Note Type Treatment Note Next Visit Plan Consider Body Blade. Progress manual work, wall walking without band around wrists/ wipe on and wipe off no band and then progress to band.
--- NOTE | 2020-08-07 10:29 | PT.OTN ---
Current Diagnoses Strain of muscle(s) and tendon(s) of the rotator cuff of right shoulder, initial encounter (08/07/20) Physical Therapy Treatment Note PT-OP-A Visit Information Start: 05/30/20 07:24 Freq: Status: Active Protocol: Document 08/07/20 09:47 MB (Rec: 08/07/20 10:28 MB [id number]) Out-Patient Physical Therapy Visit Information Visit Information Visit Type Treatment Note Visit Start Time 09:47 Visit Stop Time 10:28 Total Visit Minutes 41 Visit Number 09/08 PT-OP-B Current Condition Start: 05/30/20 07:24 Freq: Status: Active Protocol: Document 05/30/20 10:30 MB (Rec: 05/30/20 10:49 MB [id number]) Current Condition History of Current Condition Onset Date Chronic injury, right shoulder arthroscopic surgery 2019 Current Complaints Pain and not being able to use right arm, trouble sleeping History of Current Condition 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 Pt reports chronic right shoulder injury including biceps tear, bone spurs. He underwent arthroscopic surgery on 05/05/2020. He has an abduction sling, was given pendulum exercises and is currently NWB, no active movement. He is moving his right hand. Pt was icing. He reports 4/10 right anterior and posterior shoulder pain. He is sleeping in the bed with sling on. He sees doctor again in six weeks and should hear about sling wear. PMH: Left rotator cuff surgery 10 years ago, left ACL repair x3, left ulnar nerve transposition, TIA 2019 (pt had vision changes) and pt denies residual symptoms, pt takes statin and aspirin, ulcerative colitis and pt has trouble with oral medications. His blood pressure fluctuates . Pt reports occ tingling around incision areas on top of right shoulder. Pt has five arthroscopic incisions. Treatment Goals Patient/Caregiver Goals To get back to normal. PT-OP-C Subjective Start: 05/30/20 07:24 Freq: Status: Active Protocol: Document 08/07/20 09:47 MB (Rec: 08/07/20 10:28 MB [id number]) OP-PT Subjective Patient Comments Patient Comments I'm not looking forward to doing shopping today. PT-OP-K Range of Motion Start: 05/30/20 07:24 Freq: Status: Active Protocol: Document 05/30/20 10:30 MB (Rec: 05/30/20 13:32 MB [id number]) Cervical Spine Range of Motion Cervical Spine Active Testing Position Standing Flexion 35 Extension 45 Rotation Left 60 Rotation Right 55 Lateral Flexion Left 20 Lateral Flexion Right 20 Shoulder Goniometric Range of Motion Shoulder Right Shoulder ROM WFL No Testing Position Supine Left Shoulder ROM WFL Yes Testing Position Supine Flexion 70 Abduction 90 External Rotation at 90 degrees 5 Abduction Shoulder ROM Limitations Shoulder ROM Limitations Soft Tissue Tightness,Muscle Weakness,Pain,Swelling Comments PROM right shoulder only in supine with head and neck supported. With shoulder at 90 /90, IR is 10 deg. Pain limitations all ranges with 8/ 10 pain with passive flexion and abduction. Elbow/Forearm Range of Motion Elbow/Forearm Right Elbow/Forearm ROM WFL Yes ROM Testing Position Supine Left Elbow/Forearm ROM WFL Yes Elbow/Forearm ROM Limitations Comments Did not encourage pt to push through supination or pronation d/t biceps tear, post-op repair and bruising PT-OP-M Strength Start: 05/30/20 07:24 Freq: Status: Active Protocol: Document 05/30/20 10:30 MB (Rec: 05/30/20 13:32 MB [id number]) Shoulder Strength Shoulder Manual Muscle Testing Right Comments R shoulder MMT deferred at this time. Left Comments Left UE strength WNLs Elbow/Forearm Strength Elbow and Forearm Manual Muscle Testing Right Extension (C7) 5 Normal Comments Other elbow MMT deferred d/t biceps post-op Left Comments Left elbow WNLs Wrist Strength Wrist Manual Muscle Testing Right Flexion (C7) 5 Normal Extension (C6) 5 Normal Left Comments Left wrist WNLs PT-OP-Q Treatments Start: 05/30/20 07:24 Freq: Status: Active Protocol: Document 08/07/20 09:47 MB (Rec: 08/07/20 10:28 MB [id number]) Cardio Equipment Upper Body Ergometer (UBE) Duration (Minutes) 10 Other Alternating directions every 2 .5 minutes Therapeutic Exercises Supine Exercises AAROM cane ER Side right Comments 10 reps over pool noodle AAROM cane flexion and abduction Side right Comments 10 reps abd, 5 reps flexion over pool noodle Standing Exercises Body Blade Side right Reps/Minutes 5 minutes Comments Core tight, progressed to tandem, shoulder horizontal abd, abd and flexion Racquet ball STM intrascapular area and rib mobility Side right Comments Performed today, this ex is helpful, infraspinatus with ER is not Manual Therapy Treatment Other Other Manual Treatments Thoracic PA mobs grade IV, rib recoil B, greater tension on the right side PT-OP-T Assessment and Plan Start: 05/30/20 07:24 Freq: Status: Active Protocol: Document 08/07/20 09:47 MB (Rec: 08/07/20 10:28 MB [id number]) Physical Therapy Assessment Goals 5 Group Home Goal (LTG) Pt will present with AROM right shoulder to at least 160 deg flexion and abduction to improve functional use of arm by 10/09/2020. 08/01/2020: AROM right shoulder flexion 142 deg (4 reps) and abduction to 130 deg LTG Duration 12 weeks 4 Group Home Goal (LTG) Pt will perform progressive HEP including AROM, progressive strengthening for shoulder and core, thoracic and cervical mobility to prepare for return to normal activities by 10/09/2020. 08/01/2021: Pt is performing progressive exercises LTG Duration 12 weeks 2 Group Home Goal (LTG) Pt will present with right shoulder AROM 70 deg ER and IR with shoulder in 90/90 in supine by 10/09/2020. 08/01/2020: Pt presents with PROM right shoulder ER to 60 deg and IR to 35 deg with shoulder in 90/90 today LTG Duration 12 weeks 1 Group Home Goal (LTG) Pt will present with QuickDASH score reflecting no more than 20% impairment to prepare for return to work by 10/09/2020. 08/01/2020: QuickDASH score reflects 30% impairment. LTG Duration 12 weeks Assessment Summary Assessment Pt with fatigue and some soreness after Body Blade today and so will further progress HEP next treatment. Pt con't with rib tension and he responds well to recoil today. Overall, he is doing very well post-op approximately 13 weeks out. Physical Therapy Plan Frequency and Duration Frequency of Treatment 2x/Week Duration of Treatment 12 weeks Plan of Care Start Date 08/01/20 Plan of Care End Date 10/09/20 Therapeutic Interventions Therapeutic Interventions Canalithic Repositioning, Coordination Training,Home Exercise Program,Joint Mobilizations,Manual Therapy, Neuromuscular Re-education, Patient/Caregiver Education, Self-Care/Home Management,Soft Tissue Mobilization,Taping, Therapeutic Activities, Therapeutic Exercises Modalities Cold Pack/Ice Massage,Electric Stimulation,Hot Packs, Ultrasound Next Visit Focus/Plan Next Note Type Treatment Note Next Visit Plan Review ER and increase weight, PNF progression and pect stretch over pool noodle. Con' t progressive strengthening.
--- NOTE | 2020-08-09 10:33 | PT.OTN ---
Current Diagnoses Strain of muscle(s) and tendon(s) of the rotator cuff of right shoulder, initial encounter (08/09/20) Physical Therapy Treatment Note PT-OP-A Visit Information Start: 05/30/20 07:24 Freq: Status: Active Protocol: Document 08/09/20 09:45 MB (Rec: 08/09/20 10:33 MB [id number]) Out-Patient Physical Therapy Visit Information Visit Information Visit Type Treatment Note Visit Start Time 09:45 Visit Stop Time 10:28 Total Visit Minutes 43 Visit Number PT-OP-B Current Condition Start: 05/30/20 07:24 Freq: Status: Active Protocol: Document 05/30/20 10:30 MB (Rec: 05/30/20 10:49 MB [id number]) Current Condition History of Current Condition Onset Date Chronic injury, right shoulder arthroscopic surgery 2019 Current Complaints Pain and not being able to use right arm, trouble sleeping History of Current Condition 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 Pt reports chronic right shoulder injury including biceps tear, bone spurs. He underwent arthroscopic surgery on 05/05/2020. He has an abduction sling, was given pendulum exercises and is currently NWB, no active movement. He is moving his right hand. Pt was icing. He reports 4/10 right anterior and posterior shoulder pain. He is sleeping in the bed with sling on. He sees doctor again in six weeks and should hear about sling wear. PMH: Left rotator cuff surgery 10 years ago, left ACL repair x3, left ulnar nerve transposition, TIA 2019 (pt had vision changes) and pt denies residual symptoms, pt takes statin and aspirin, ulcerative colitis and pt has trouble with oral medications. His blood pressure fluctuates . Pt reports occ tingling around incision areas on top of right shoulder. Pt has five arthroscopic incisions. Treatment Goals Patient/Caregiver Goals To get back to normal. PT-OP-C Subjective Start: 05/30/20 07:24 Freq: Status: Active Protocol: Document 08/09/20 09:45 MB (Rec: 08/09/20 10:33 MB [id number]) OP-PT Subjective Patient Comments Patient Comments My arm was sore yesterday. I did all that shopping the day before. My stomach was upset this morning. I have ulcerative colitis. PT-OP-K Range of Motion Start: 05/30/20 07:24 Freq: Status: Active Protocol: Document 05/30/20 10:30 MB (Rec: 05/30/20 13:32 MB [id number]) Cervical Spine Range of Motion Cervical Spine Active Testing Position Standing Flexion 35 Extension 45 Rotation Left 60 Rotation Right 55 Lateral Flexion Left 20 Lateral Flexion Right 20 Shoulder Goniometric Range of Motion Shoulder Right Shoulder ROM WFL No Testing Position Supine Left Shoulder ROM WFL Yes Testing Position Supine Flexion 70 Abduction 90 External Rotation at 90 degrees 5 Abduction Shoulder ROM Limitations Shoulder ROM Limitations Soft Tissue Tightness,Muscle Weakness,Pain,Swelling Comments PROM right shoulder only in supine with head and neck supported. With shoulder at 90 /90, IR is 10 deg. Pain limitations all ranges with 8/ 10 pain with passive flexion and abduction. Elbow/Forearm Range of Motion Elbow/Forearm Right Elbow/Forearm ROM WFL Yes ROM Testing Position Supine Left Elbow/Forearm ROM WFL Yes Elbow/Forearm ROM Limitations Comments Did not encourage pt to push through supination or pronation d/t biceps tear, post-op repair and bruising PT-OP-M Strength Start: 05/30/20 07:24 Freq: Status: Active Protocol: Document 05/30/20 10:30 MB (Rec: 05/30/20 13:32 MB [id number]) Shoulder Strength Shoulder Manual Muscle Testing Right Comments R shoulder MMT deferred at this time. Left Comments Left UE strength WNLs Elbow/Forearm Strength Elbow and Forearm Manual Muscle Testing Right Extension (C7) 5 Normal Comments Other elbow MMT deferred d/t biceps post-op Left Comments Left elbow WNLs Wrist Strength Wrist Manual Muscle Testing Right Flexion (C7) 5 Normal Extension (C6) 5 Normal Left Comments Left wrist WNLs PT-OP-Q Treatments Start: 05/30/20 07:24 Freq: Status: Active Protocol: Document 08/09/20 09:45 MB (Rec: 08/09/20 10:33 MB [id number]) Cardio Equipment Upper Body Ergometer (UBE) Duration (Minutes) 10 Other Alternating directions every 2 .5 minutes Therapeutic Exercises Supine Exercises Pool noodle AROM Side right Equipment Used Teal pool noodle Reps/Minutes 10 Comments B AROM flexion, right abduction, ER, abdominal drawing in Prone Exercises Lift offs Side bilateral Comments 5 reps and cues for arm position Sidelying Exercises ER with towel roll and hand weight Side bilateral Comments 10 reps x2; 6 lb left arm, 3 lb right arm Sitting Exercises Posterior capsule stretch, resisted isometric Side right Comments 20 sec and resisted isometric Standing Exercises Thread the needle standing near wall Side bilateral Comments Pt does not think is helpful and so will d/c: performed 5 reps Pillow case flexion Comments 10 reps and pt reports too easy Other Exercises Open book Side bilateral Comments 5 reps PT-OP-T Assessment and Plan Start: 05/30/20 07:24 Freq: Status: Active Protocol: Document 08/09/20 09:45 MB (Rec: 08/09/20 10:33 MB [id number]) Physical Therapy Assessment Goals 5 Care Home Goal (LTG) Pt will present with AROM right shoulder to at least 160 deg flexion and abduction to improve functional use of arm by 10/09/2020. 08/01/2020: AROM right shoulder flexion 142 deg (4 reps) and abduction to 130 deg LTG Duration 12 weeks 4 [employer] Security Consultant Goal (LTG) Pt will perform progressive HEP including AROM, progressive strengthening for shoulder and core, thoracic and cervical mobility to prepare for return to normal activities by 10/09/2020. 08/01/2021: Pt is performing progressive exercises LTG Duration 12 weeks 2 Care Home Goal (LTG) Pt will present with right shoulder AROM 70 deg ER and IR with shoulder in 90/90 in supine by 10/09/2020. 08/01/2020: Pt presents with PROM right shoulder ER to 60 deg and IR to 35 deg with shoulder in 90/90 today LTG Duration 12 weeks 1 [employer] Consultant Goal (LTG) Pt will present with QuickDASH score reflecting no more than 20% impairment to prepare for return to work by 10/09/2020. 08/01/2020: QuickDASH score reflects 30% impairment. LTG Duration 12 weeks Assessment Summary Assessment Revised exercises today and created handout list for pt and copy is in the chart. Pt to get 1 lb free weights, pool noodle and body blade. Con't progression of exercises. Pt con't to to well with range and exercises. Physical Therapy Plan Frequency and Duration Frequency of Treatment 2x/Week Duration of Treatment 12 weeks Plan of Care Start Date 08/01/20 Plan of Care End Date 10/09/20 Therapeutic Interventions Therapeutic Interventions Canalithic Repositioning, Coordination Training,Home Exercise Program,Joint Mobilizations,Manual Therapy, Neuromuscular Re-education, Patient/Caregiver Education, Self-Care/Home Management,Soft Tissue Mobilization,Taping, Therapeutic Activities, Therapeutic Exercises Modalities Cold Pack/Ice Massage,Electric Stimulation,Hot Packs, Ultrasound Next Visit Focus/Plan Next Note Type Treatment Note Next Visit Plan Progress pect stretch over pool noodle, PNF with resistance, prone shoulder exercises with hand weights, open book and Body Blade
--- NOTE | 2020-08-15 10:32 | PT.OTN ---
Current Diagnoses Strain of muscle(s) and tendon(s) of the rotator cuff of right shoulder, initial encounter (08/15/20) Physical Therapy Treatment Note PT-OP-A Visit Information Start: 05/30/20 07:24 Freq: Status: Active Protocol: Document 08/15/20 09:48 MB (Rec: 08/15/20 10:26 MB [id number]) Out-Patient Physical Therapy Visit Information Visit Information Visit Type Treatment Note Visit Start Time 09:48 Visit Stop Time 10:28 Total Visit Minutes 40 Visit Number PT-OP-B Current Condition Start: 05/30/20 07:24 Freq: Status: Active Protocol: Document 05/30/20 10:30 MB (Rec: 05/30/20 10:49 MB [id number]) Current Condition History of Current Condition Onset Date Chronic injury, right shoulder arthroscopic surgery 2019 Current Complaints Pain and not being able to use right arm, trouble sleeping History of Current Condition 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 Pt reports chronic right shoulder injury including biceps tear, bone spurs. He underwent arthroscopic surgery on 05/05/2020. He has an abduction sling, was given pendulum exercises and is currently NWB, no active movement. He is moving his right hand. Pt was icing. He reports 4/10 right anterior and posterior shoulder pain. He is sleeping in the bed with sling on. He sees doctor again in six weeks and should hear about sling wear. PMH: Left rotator cuff surgery 10 years ago, left ACL repair x3, left ulnar nerve transposition, TIA 2019 (pt had vision changes) and pt denies residual symptoms, pt takes statin and aspirin, ulcerative colitis and pt has trouble with oral medications. His blood pressure fluctuates . Pt reports occ tingling around incision areas on top of right shoulder. Pt has five arthroscopic incisions. Treatment Goals Patient/Caregiver Goals To get back to normal. PT-OP-C Subjective Start: 05/30/20 07:24 Freq: Status: Active Protocol: Document 08/15/20 09:48 MB (Rec: 08/15/20 10:26 MB [id number]) OP-PT Subjective Patient Comments Patient Comments I had to cancel my appointment on because I see the surgeon at the same time. PT-OP-K Range of Motion Start: 05/30/20 07:24 Freq: Status: Active Protocol: Document 05/30/20 10:30 MB (Rec: 05/30/20 13:32 MB [id number]) Cervical Spine Range of Motion Cervical Spine Active Testing Position Standing Flexion 35 Extension 45 Rotation Left 60 Rotation Right 55 Lateral Flexion Left 20 Lateral Flexion Right 20 Shoulder Goniometric Range of Motion Shoulder Right Shoulder ROM WFL No Testing Position Supine Left Shoulder ROM WFL Yes Testing Position Supine Flexion 70 Abduction 90 External Rotation at 90 degrees 5 Abduction Shoulder ROM Limitations Shoulder ROM Limitations Soft Tissue Tightness,Muscle Weakness,Pain,Swelling Comments PROM right shoulder only in supine with head and neck supported. With shoulder at 90 /90, IR is 10 deg. Pain limitations all ranges with 8/ 10 pain with passive flexion and abduction. Elbow/Forearm Range of Motion Elbow/Forearm Right Elbow/Forearm ROM WFL Yes ROM Testing Position Supine Left Elbow/Forearm ROM WFL Yes Elbow/Forearm ROM Limitations Comments Did not encourage pt to push through supination or pronation d/t biceps tear, post-op repair and bruising PT-OP-M Strength Start: 05/30/20 07:24 Freq: Status: Active Protocol: Document 05/30/20 10:30 MB (Rec: 05/30/20 13:32 MB [id number]) Shoulder Strength Shoulder Manual Muscle Testing Right Comments R shoulder MMT deferred at this time. Left Comments Left UE strength WNLs Elbow/Forearm Strength Elbow and Forearm Manual Muscle Testing Right Extension (C7) 5 Normal Comments Other elbow MMT deferred d/t biceps post-op Left Comments Left elbow WNLs Wrist Strength Wrist Manual Muscle Testing Right Flexion (C7) 5 Normal Extension (C6) 5 Normal Left Comments Left wrist WNLs PT-OP-Q Treatments Start: 05/30/20 07:24 Freq: Status: Active Protocol: Document 08/15/20 09:48 MB (Rec: 08/15/20 10:26 MB [id number]) Cardio Equipment Upper Body Ergometer (UBE) Duration (Minutes) 10 Other Every minute, change directions Therapeutic Exercises Supine Exercises Pool noodle active shoulder ER Side bilateral Resistance No resistance today Equipment Used Teal noodle Comments 10 reps, difficult to keep elbows at side Pect stretch over pool noodle Side bilateral Equipment Used Teal noodle Comments Active stretch and then static Pool noodle AROM Side bilateral Resistance Pt holds hammer Equipment Used Teal pool noodle Comments B AROM shoulder flexion, holds hammer right hand PNF 1 and 2 on pool noodle Side right Resistance Pt holds hammer Equipment Used Teal noodle Comments 10 reps Sidelying Exercises ER with towel roll and hand weight Side right Comments Tried with hammer, too easy Standing Exercises Body Blade Side right Reps/Minutes 5' Comments Used hammer today and performed similar ex Other Exercises Open book Side bilateral Comments 5 reps and pt holds hammer PT-OP-T Assessment and Plan Start: 05/30/20 07:24 Freq: Status: Active Protocol: Document 08/15/20 09:48 MB (Rec: 08/15/20 10:26 MB [id number]) Physical Therapy Assessment Goals 5 Residential Goal (LTG) Pt will present with AROM right shoulder to at least 160 deg flexion and abduction to improve functional use of arm by 10/09/2020. 08/01/2020: AROM right shoulder flexion 142 deg (4 reps) and abduction to 130 deg LTG Duration 12 weeks 4 Residential Goal (LTG) Pt will perform progressive HEP including AROM, progressive strengthening for shoulder and core, thoracic and cervical mobility to prepare for return to normal activities by 10/09/2020. 08/01/2021: Pt is performing progressive exercises LTG Duration 12 weeks 2 Wireless Team Member Goal (LTG) Pt will present with right shoulder AROM 70 deg ER and IR with shoulder in 90/90 in supine by 10/09/2020. 08/01/2020: Pt presents with PROM right shoulder ER to 60 deg and IR to 35 deg with shoulder in 90/90 today LTG Duration 12 weeks 1 Residential Goal (LTG) Pt will present with QuickDASH score reflecting no more than 20% impairment to prepare for return to work by 10/09/2020. 08/01/2020: QuickDASH score reflects 30% impairment. LTG Duration 12 weeks Assessment Summary Assessment Progressed exercises today using hammer to make more challenging with weight and more functional d/t his work. Con't these types of exercises and follow any further surgeon progressions and [place] mobs. Physical Therapy Plan Frequency and Duration Frequency of Treatment 2x/Week Duration of Treatment 12 weeks Plan of Care Start Date 08/01/20 Plan of Care End Date 10/09/20 Therapeutic Interventions Therapeutic Interventions Canalithic Repositioning, Coordination Training,Home Exercise Program,Joint Mobilizations,Manual Therapy, Neuromuscular Re-education, Patient/Caregiver Education, Self-Care/Home Management,Soft Tissue Mobilization,Taping, Therapeutic Activities, Therapeutic Exercises Modalities Cold Pack/Ice Massage,Electric Stimulation,Hot Packs, Ultrasound Next Visit Focus/Plan Next Note Type Treatment Note Next Visit Plan PT prefers Body Blade for strengthening but if pt is not interested, ongoing free weight progression. Would like to focus on more functional exercises for his work.
--- NOTE | 2020-08-22 10:24 | PT.OTN ---
Current Diagnoses Strain of muscle(s) and tendon(s) of the rotator cuff of right shoulder, initial encounter (08/22/20) Physical Therapy Treatment Note PT-OP-A Visit Information Start: 05/30/20 07:24 Freq: Status: Active Protocol: Document 08/22/20 09:45 MB (Rec: 08/22/20 10:24 MB [id number]) Out-Patient Physical Therapy Visit Information Visit Information Visit Type Treatment Note Visit Start Time 09:45 Visit Stop Time 10:23 Total Visit Minutes 38 Visit Number PT-OP-B Current Condition Start: 05/30/20 07:24 Freq: Status: Active Protocol: Document 05/30/20 10:30 MB (Rec: 05/30/20 10:49 MB [id number]) Current Condition History of Current Condition Onset Date Chronic injury, right shoulder arthroscopic surgery 2019 Current Complaints Pain and not being able to use right arm, trouble sleeping History of Current Condition 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 Pt reports chronic right shoulder injury including biceps tear, bone spurs. He underwent arthroscopic surgery on 05/05/2020. He has an abduction sling, was given pendulum exercises and is currently NWB, no active movement. He is moving his right hand. Pt was icing. He reports 4/10 right anterior and posterior shoulder pain. He is sleeping in the bed with sling on. He sees doctor again in six weeks and should hear about sling wear. PMH: Left rotator cuff surgery 10 years ago, left ACL repair x3, left ulnar nerve transposition, TIA 2019 (pt had vision changes) and pt denies residual symptoms, pt takes statin and aspirin, ulcerative colitis and pt has trouble with oral medications. His blood pressure fluctuates . Pt reports occ tingling around incision areas on top of right shoulder. Pt has five arthroscopic incisions. Treatment Goals Patient/Caregiver Goals To get back to normal. PT-OP-C Subjective Start: 05/30/20 07:24 Freq: Status: Active Protocol: Document 08/22/20 09:45 MB (Rec: 08/22/20 10:24 MB [id number]) OP-PT Subjective Patient Comments Patient Comments He released me. He told me I can progress towards strengthening. He said it'd take about a year to get back my endurance. When PT asks pt how the surgeon appointment went. PT-OP-K Range of Motion Start: 05/30/20 07:24 Freq: Status: Active Protocol: Document 05/30/20 10:30 MB (Rec: 05/30/20 13:32 MB [id number]) Cervical Spine Range of Motion Cervical Spine Active Testing Position Standing Flexion 35 Extension 45 Rotation Left 60 Rotation Right 55 Lateral Flexion Left 20 Lateral Flexion Right 20 Shoulder Goniometric Range of Motion Shoulder Right Shoulder ROM WFL No Testing Position Supine Left Shoulder ROM WFL Yes Testing Position Supine Flexion 70 Abduction 90 External Rotation at 90 degrees 5 Abduction Shoulder ROM Limitations Shoulder ROM Limitations Soft Tissue Tightness,Muscle Weakness,Pain,Swelling Comments PROM right shoulder only in supine with head and neck supported. With shoulder at 90 /90, IR is 10 deg. Pain limitations all ranges with 8/ 10 pain with passive flexion and abduction. Elbow/Forearm Range of Motion Elbow/Forearm Right Elbow/Forearm ROM WFL Yes ROM Testing Position Supine Left Elbow/Forearm ROM WFL Yes Elbow/Forearm ROM Limitations Comments Did not encourage pt to push through supination or pronation d/t biceps tear, post-op repair and bruising PT-OP-M Strength Start: 05/30/20 07:24 Freq: Status: Active Protocol: Document 05/30/20 10:30 MB (Rec: 05/30/20 13:32 MB [id number]) Shoulder Strength Shoulder Manual Muscle Testing Right Comments R shoulder MMT deferred at this time. Left Comments Left UE strength WNLs Elbow/Forearm Strength Elbow and Forearm Manual Muscle Testing Right Extension (C7) 5 Normal Comments Other elbow MMT deferred d/t biceps post-op Left Comments Left elbow WNLs Wrist Strength Wrist Manual Muscle Testing Right Flexion (C7) 5 Normal Extension (C6) 5 Normal Left Comments Left wrist WNLs PT-OP-Q Treatments Start: 05/30/20 07:24 Freq: Status: Active Protocol: Document 08/22/20 09:45 MB (Rec: 08/22/20 10:24 MB [id number]) Cardio Equipment Upper Body Ergometer (UBE) Duration (Minutes) 10 Other Every minute, change directions Manual Therapy Treatment Other Other Manual Treatments Modified [place] Protocol for right shoulder--more slowly and through lesser range. GH mobs from posterior capsule are tight and shoulder abduction is limited, he responds well to all mobilizations and his right shoulder AROM improves PT-OP-T Assessment and Plan Start: 05/30/20 07:24 Freq: Status: Active Protocol: Document 08/22/20 09:45 MB (Rec: 08/22/20 10:24 MB [id number]) Physical Therapy Assessment Goals 5 Mcfp Goal (LTG) Pt will present with AROM right shoulder to at least 160 deg flexion and abduction to improve functional use of arm by 10/09/2020. 08/01/2020: AROM right shoulder flexion 142 deg (4 reps) and abduction to 130 deg LTG Duration 12 weeks 4 Installation Manager Goal (LTG) Pt will perform progressive HEP including AROM, progressive strengthening for shoulder and core, thoracic and cervical mobility to prepare for return to normal activities by 10/09/2020. 08/01/2021: Pt is performing progressive exercises LTG Duration 12 weeks 2 Mcfp Goal (LTG) Pt will present with right shoulder AROM 70 deg ER and IR with shoulder in 90/90 in supine by 10/09/2020. 08/01/2020: Pt presents with PROM right shoulder ER to 60 deg and IR to 35 deg with shoulder in 90/90 today LTG Duration 12 weeks 1 Installation Manager Goal (LTG) Pt will present with QuickDASH score reflecting no more than 20% impairment to prepare for return to work by 10/09/2020. 08/01/2020: QuickDASH score reflects 30% impairment. LTG Duration 12 weeks Progress Towards Goals Progress Towards Goals Progressing Toward Goals Progress Comments AROM IR behind back today in standing: left to T8 and right to T11 AROM right shoulder after [place] Protocol: abduction 165 deg, flexion 145 deg Assessment Summary Assessment Manual work today to promote shoulder, scapular and thoracic mobility. His AROM right shoulder is improved after [place] Protocol. Con' t to review Body Blade and progressive activities, thoracic mobility. Ed pt on benefits of 4 foam roller for exercises. Physical Therapy Plan Frequency and Duration Frequency of Treatment 2x/Week Duration of Treatment 12 weeks Plan of Care Start Date 08/01/20 Plan of Care End Date 10/09/20 Therapeutic Interventions Therapeutic Interventions Canalithic Repositioning, Coordination Training,Home Exercise Program,Joint Mobilizations,Manual Therapy, Neuromuscular Re-education, Patient/Caregiver Education, Self-Care/Home Management,Soft Tissue Mobilization,Taping, Therapeutic Activities, Therapeutic Exercises Modalities Cold Pack/Ice Massage,Electric Stimulation,Hot Packs, Ultrasound Next Visit Focus/Plan Next Note Type Treatment Note Next Visit Plan Add IR exercise/stretch. Pt to bring in Body Blade he will borrow from a friend and will review exercises, ongoing manual work, progressive functional exercises to prepare for return to work
--- NOTE | 2020-08-24 10:36 | PT.OTN ---
Current Diagnoses Strain of muscle(s) and tendon(s) of the rotator cuff of right shoulder, initial encounter (08/24/20) Physical Therapy Treatment Note PT-OP-A Visit Information Start: 05/30/20 07:24 Freq: Status: Active Protocol: Document 08/24/20 09:50 MB (Rec: 08/24/20 10:33 MB [id number]) Out-Patient Physical Therapy Visit Information Visit Information Visit Type Treatment Note Visit Start Time 09:50 Visit Stop Time 10:30 Total Visit Minutes 40 Visit Number PT-OP-B Current Condition Start: 05/30/20 07:24 Freq: Status: Active Protocol: Document 05/30/20 10:30 MB (Rec: 05/30/20 10:49 MB [id number]) Current Condition History of Current Condition Onset Date Chronic injury, right shoulder arthroscopic surgery 2019 Current Complaints Pain and not being able to use right arm, trouble sleeping History of Current Condition 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 Pt reports chronic right shoulder injury including biceps tear, bone spurs. He underwent arthroscopic surgery on 05/05/2020. He has an abduction sling, was given pendulum exercises and is currently NWB, no active movement. He is moving his right hand. Pt was icing. He reports 4/10 right anterior and posterior shoulder pain. He is sleeping in the bed with sling on. He sees doctor again in six weeks and should hear about sling wear. PMH: Left rotator cuff surgery 10 years ago, left ACL repair x3, left ulnar nerve transposition, TIA 2019 (pt had vision changes) and pt denies residual symptoms, pt takes statin and aspirin, ulcerative colitis and pt has trouble with oral medications. His blood pressure fluctuates . Pt reports occ tingling around incision areas on top of right shoulder. Pt has five arthroscopic incisions. Treatment Goals Patient/Caregiver Goals To get back to normal. PT-OP-C Subjective Start: 05/30/20 07:24 Freq: Status: Active Protocol: Document 08/24/20 09:50 MB (Rec: 08/24/20 10:33 MB [id number]) OP-PT Subjective Patient Comments Patient Comments I'm doing good. PT-OP-K Range of Motion Start: 05/30/20 07:24 Freq: Status: Active Protocol: Document 05/30/20 10:30 MB (Rec: 05/30/20 13:32 MB [id number]) Cervical Spine Range of Motion Cervical Spine Active Testing Position Standing Flexion 35 Extension 45 Rotation Left 60 Rotation Right 55 Lateral Flexion Left 20 Lateral Flexion Right 20 Shoulder Goniometric Range of Motion Shoulder Right Shoulder ROM WFL No Testing Position Supine Left Shoulder ROM WFL Yes Testing Position Supine Flexion 70 Abduction 90 External Rotation at 90 degrees 5 Abduction Shoulder ROM Limitations Shoulder ROM Limitations Soft Tissue Tightness,Muscle Weakness,Pain,Swelling Comments PROM right shoulder only in supine with head and neck supported. With shoulder at 90 /90, IR is 10 deg. Pain limitations all ranges with 8/ 10 pain with passive flexion and abduction. Elbow/Forearm Range of Motion Elbow/Forearm Right Elbow/Forearm ROM WFL Yes ROM Testing Position Supine Left Elbow/Forearm ROM WFL Yes Elbow/Forearm ROM Limitations Comments Did not encourage pt to push through supination or pronation d/t biceps tear, post-op repair and bruising PT-OP-M Strength Start: 05/30/20 07:24 Freq: Status: Active Protocol: Document 05/30/20 10:30 MB (Rec: 05/30/20 13:32 MB [id number]) Shoulder Strength Shoulder Manual Muscle Testing Right Comments R shoulder MMT deferred at this time. Left Comments Left UE strength WNLs Elbow/Forearm Strength Elbow and Forearm Manual Muscle Testing Right Extension (C7) 5 Normal Comments Other elbow MMT deferred d/t biceps post-op Left Comments Left elbow WNLs Wrist Strength Wrist Manual Muscle Testing Right Flexion (C7) 5 Normal Extension (C6) 5 Normal Left Comments Left wrist WNLs PT-OP-Q Treatments Start: 05/30/20 07:24 Freq: Status: Active Protocol: Document 08/24/20 09:50 MB (Rec: 08/24/20 10:33 MB [id number]) Cardio Equipment Upper Body Ergometer (UBE) Duration (Minutes) 10 Other Alternate forward and backwards every minute Therapeutic Exercises Supine Exercises ER with band on 4 Side bilateral Equipment Used Level 1 band, 4 foam roller Reps/Minutes 10 PNF 1 and 2 on pool noodle Supine Exercise Name 4 foam roller advancement Side right Resistance Level 1 and 2 bands Equipment Used 4 foam roller Comments 10 reps with each, PNF 1 & 2 [place] Exercises Lift offs Comments D/c d/t awkward and pet interference Standing Exercises Body Blade Side bilateral Reps/Minutes 5' Comments Classic body blade, abd, flexion, core, scap ret/ext 1 Standing Exercise Name IR with towel behind back and resisted isometric Side right Comments 1 rep PT-OP-T Assessment and Plan Start: 05/30/20 07:24 Freq: Status: Active Protocol: Document 08/24/20 09:50 MB (Rec: 08/24/20 10:33 MB [id number]) Physical Therapy Assessment Goals 5 Half-Way Goal (LTG) Pt will present with AROM right shoulder to at least 160 deg flexion and abduction to improve functional use of arm by 10/09/2020. 08/01/2020: AROM right shoulder flexion 142 deg (4 reps) and abduction to 130 deg LTG Duration 12 weeks 4 Warehouse Operations Associate Goal (LTG) Pt will perform progressive HEP including AROM, progressive strengthening for shoulder and core, thoracic and cervical mobility to prepare for return to normal activities by 10/09/2020. 08/01/2021: Pt is performing progressive exercises LTG Duration 12 weeks 2 Half-Way Goal (LTG) Pt will present with right shoulder AROM 70 deg ER and IR with shoulder in 90/90 in supine by 10/09/2020. 08/01/2020: Pt presents with PROM right shoulder ER to 60 deg and IR to 35 deg with shoulder in 90/90 today LTG Duration 12 weeks 1 Warehouse Operations Associate Goal (LTG) Pt will present with QuickDASH score reflecting no more than 20% impairment to prepare for return to work by 10/09/2020. 08/01/2020: QuickDASH score reflects 30% impairment. LTG Duration 12 weeks Assessment Summary Assessment Progressed strengthening today and IR behind back. Ongoing [place] Protocol and strengthening in future treatments. Physical Therapy Plan Frequency and Duration Frequency of Treatment 2x/Week Duration of Treatment 12 weeks Plan of Care Start Date 08/01/20 Plan of Care End Date 10/09/20 Therapeutic Interventions Therapeutic Interventions Canalithic Repositioning, Coordination Training,Home Exercise Program,Joint Mobilizations,Manual Therapy, Neuromuscular Re-education, Patient/Caregiver Education, Self-Care/Home Management,Soft Tissue Mobilization,Taping, Therapeutic Activities, Therapeutic Exercises Modalities Cold Pack/Ice Massage,Electric Stimulation,Hot Packs, Ultrasound Next Visit Focus/Plan Next Note Type Treatment Note Next Visit Plan Pt to bring in Body Blade he will borrow from a friend and will review exercises, ongoing manual work, progressive functional exercises to prepare for return to work
--- NOTE | 2020-08-29 10:33 | PT.OTN ---
Current Diagnoses Strain of muscle(s) and tendon(s) of the rotator cuff of right shoulder, initial encounter (08/29/20) Physical Therapy Treatment Note PT-OP-A Visit Information Start: 05/30/20 07:24 Freq: Status: Active Protocol: Document 08/29/20 09:50 MB (Rec: 08/29/20 10:33 MB [id number]) Out-Patient Physical Therapy Visit Information Visit Information Visit Type Treatment Note Visit Start Time 09:50 Visit Stop Time 10:30 Total Visit Minutes 40 Visit Number PT-OP-B Current Condition Start: 05/30/20 07:24 Freq: Status: Active Protocol: Document 05/30/20 10:30 MB (Rec: 05/30/20 10:49 MB [id number]) Current Condition History of Current Condition Onset Date Chronic injury, right shoulder arthroscopic surgery 2019 Current Complaints Pain and not being able to use right arm, trouble sleeping History of Current Condition 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 Pt reports chronic right shoulder injury including biceps tear, bone spurs. He underwent arthroscopic surgery on 05/05/2020. He has an abduction sling, was given pendulum exercises and is currently NWB, no active movement. He is moving his right hand. Pt was icing. He reports 4/10 right anterior and posterior shoulder pain. He is sleeping in the bed with sling on. He sees doctor again in six weeks and should hear about sling wear. PMH: Left rotator cuff surgery 10 years ago, left ACL repair x3, left ulnar nerve transposition, TIA 2019 (pt had vision changes) and pt denies residual symptoms, pt takes statin and aspirin, ulcerative colitis and pt has trouble with oral medications. His blood pressure fluctuates . Pt reports occ tingling around incision areas on top of right shoulder. Pt has five arthroscopic incisions. Treatment Goals Patient/Caregiver Goals To get back to normal. PT-OP-C Subjective Start: 05/30/20 07:24 Freq: Status: Active Protocol: Document 08/29/20 09:50 MB (Rec: 08/29/20 10:33 MB [id number]) OP-PT Subjective Patient Comments Patient Comments Pt noticed that when he reached down to worm picker something when sitting in his recliner (pt demonstrates reaching downward with IR), he had pain in the front of his upper arm near his biceps. He was just picking up his reading glasses. PT-OP-K Range of Motion Start: 05/30/20 07:24 Freq: Status: Active Protocol: Document 05/30/20 10:30 MB (Rec: 05/30/20 13:32 MB [id number]) Cervical Spine Range of Motion Cervical Spine Active Testing Position Standing Flexion 35 Extension 45 Rotation Left 60 Rotation Right 55 Lateral Flexion Left 20 Lateral Flexion Right 20 Shoulder Goniometric Range of Motion Shoulder Right Shoulder ROM WFL No Testing Position Supine Left Shoulder ROM WFL Yes Testing Position Supine Flexion 70 Abduction 90 External Rotation at 90 degrees 5 Abduction Shoulder ROM Limitations Shoulder ROM Limitations Soft Tissue Tightness,Muscle Weakness,Pain,Swelling Comments PROM right shoulder only in supine with head and neck supported. With shoulder at 90 /90, IR is 10 deg. Pain limitations all ranges with 8/ 10 pain with passive flexion and abduction. Elbow/Forearm Range of Motion Elbow/Forearm Right Elbow/Forearm ROM WFL Yes ROM Testing Position Supine Left Elbow/Forearm ROM WFL Yes Elbow/Forearm ROM Limitations Comments Did not encourage pt to push through supination or pronation d/t biceps tear, post-op repair and bruising PT-OP-M Strength Start: 05/30/20 07:24 Freq: Status: Active Protocol: Document 05/30/20 10:30 MB (Rec: 05/30/20 13:32 MB [id number]) Shoulder Strength Shoulder Manual Muscle Testing Right Comments R shoulder MMT deferred at this time. Left Comments Left UE strength WNLs Elbow/Forearm Strength Elbow and Forearm Manual Muscle Testing Right Extension (C7) 5 Normal Comments Other elbow MMT deferred d/t biceps post-op Left Comments Left elbow WNLs Wrist Strength Wrist Manual Muscle Testing Right Flexion (C7) 5 Normal Extension (C6) 5 Normal Left Comments Left wrist WNLs PT-OP-Q Treatments Start: 05/30/20 07:24 Freq: Status: Active Protocol: Document 08/29/20 09:50 MB (Rec: 08/29/20 10:33 MB [id number]) Cardio Equipment Upper Body Ergometer (UBE) Duration (Minutes) 10 Other Alternate forward and backwards every minute Therapeutic Exercises Standing Exercises Body Blade Standing Exercise Name Pt makes video of PT performance and ed before he performs Side right Reps/Minutes 5' Comments Classic body blade, carefully IR with arm down 1 Side right Comments Pt uses Body Blade today for IR behind back Manual Therapy Treatment Other Other Manual Treatments Modified [place] Protocol right shoulder PT-OP-T Assessment and Plan Start: 05/30/20 07:24 Freq: Status: Active Protocol: Document 08/29/20 09:50 MB (Rec: 08/29/20 10:33 MB [id number]) Physical Therapy Assessment Goals 5 Silver Service Waiter Goal (LTG) Pt will present with AROM right shoulder to at least 160 deg flexion and abduction to improve functional use of arm by 10/09/2020. 08/01/2020: AROM right shoulder flexion 142 deg (4 reps) and abduction to 130 deg LTG Duration 12 weeks 4 Silver Service Waiter Goal (LTG) Pt will perform progressive HEP including AROM, progressive strengthening for shoulder and core, thoracic and cervical mobility to prepare for return to normal activities by 10/09/2020. 08/01/2021: Pt is performing progressive exercises LTG Duration 12 weeks 2 Senior Living Goal (LTG) Pt will present with right shoulder AROM 70 deg ER and IR with shoulder in 90/90 in supine by 10/09/2020. 08/01/2020: Pt presents with PROM right shoulder ER to 60 deg and IR to 35 deg with shoulder in 90/90 today LTG Duration 12 weeks 1 Senior Living Goal (LTG) Pt will present with QuickDASH score reflecting no more than 20% impairment to prepare for return to work by 10/09/2020. 08/01/2020: QuickDASH score reflects 30% impairment. LTG Duration 12 weeks Assessment Summary Assessment Progressed Body Blade today and pt to initiate gentle IR without pain. Pt con't to tolerate modified [place] Protocol today. Con't progression Physical Therapy Plan Frequency and Duration Frequency of Treatment 2x/Week Duration of Treatment 12 weeks Plan of Care Start Date 08/01/20 Plan of Care End Date 10/09/20 Therapeutic Interventions Therapeutic Interventions Canalithic Repositioning, Coordination Training,Home Exercise Program,Joint Mobilizations,Manual Therapy, Neuromuscular Re-education, Patient/Caregiver Education, Self-Care/Home Management,Soft Tissue Mobilization,Taping, Therapeutic Activities, Therapeutic Exercises Modalities Cold Pack/Ice Massage,Electric Stimulation,Hot Packs, Ultrasound Next Visit Focus/Plan Next Note Type Treatment Note Next Visit Plan Ongoing manual work, progressive functional exercises to prepare for return to work
--- NOTE | 2020-08-31 10:30 | PT.OTN ---
Current Diagnoses Strain of muscle(s) and tendon(s) of the rotator cuff of right shoulder, initial encounter (08/31/20) Physical Therapy Treatment Note PT-OP-A Visit Information Start: 05/30/20 07:24 Freq: Status: Active Protocol: Document 08/31/20 09:45 MB (Rec: 08/31/20 10:29 MB [id number]) Out-Patient Physical Therapy Visit Information Visit Information Visit Type Treatment Note Visit Start Time 09:45 Visit Stop Time 10:30 Total Visit Minutes 45 Visit Number PT-OP-B Current Condition Start: 05/30/20 07:24 Freq: Status: Active Protocol: Document 05/30/20 10:30 MB (Rec: 05/30/20 10:49 MB [id number]) Current Condition History of Current Condition Onset Date Chronic injury, right shoulder arthroscopic surgery 2019 Current Complaints Pain and not being able to use right arm, trouble sleeping History of Current Condition 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 Pt reports chronic right shoulder injury including biceps tear, bone spurs. He underwent arthroscopic surgery on 05/05/2020. He has an abduction sling, was given pendulum exercises and is currently NWB, no active movement. He is moving his right hand. Pt was icing. He reports 4/10 right anterior and posterior shoulder pain. He is sleeping in the bed with sling on. He sees doctor again in six weeks and should hear about sling wear. PMH: Left rotator cuff surgery 10 years ago, left ACL repair x3, left ulnar nerve transposition, TIA 2019 (pt had vision changes) and pt denies residual symptoms, pt takes statin and aspirin, ulcerative colitis and pt has trouble with oral medications. His blood pressure fluctuates . Pt reports occ tingling around incision areas on top of right shoulder. Pt has five arthroscopic incisions. Treatment Goals Patient/Caregiver Goals To get back to normal. PT-OP-C Subjective Start: 05/30/20 07:24 Freq: Status: Active Protocol: Document 08/31/20 09:45 MB (Rec: 08/31/20 10:29 MB [id number]) OP-PT Subjective Patient Comments Patient Comments I couldn't sleep at all last night. I found out my brother in [place] got COVID. PT-OP-K Range of Motion Start: 05/30/20 07:24 Freq: Status: Active Protocol: Document 05/30/20 10:30 MB (Rec: 05/30/20 13:32 MB [id number]) Cervical Spine Range of Motion Cervical Spine Active Testing Position Standing Flexion 35 Extension 45 Rotation Left 60 Rotation Right 55 Lateral Flexion Left 20 Lateral Flexion Right 20 Shoulder Goniometric Range of Motion Shoulder Right Shoulder ROM WFL No Testing Position Supine Left Shoulder ROM WFL Yes Testing Position Supine Flexion 70 Abduction 90 External Rotation at 90 degrees 5 Abduction Shoulder ROM Limitations Shoulder ROM Limitations Soft Tissue Tightness,Muscle Weakness,Pain,Swelling Comments PROM right shoulder only in supine with head and neck supported. With shoulder at 90 /90, IR is 10 deg. Pain limitations all ranges with 8/ 10 pain with passive flexion and abduction. Elbow/Forearm Range of Motion Elbow/Forearm Right Elbow/Forearm ROM WFL Yes ROM Testing Position Supine Left Elbow/Forearm ROM WFL Yes Elbow/Forearm ROM Limitations Comments Did not encourage pt to push through supination or pronation d/t biceps tear, post-op repair and bruising PT-OP-M Strength Start: 05/30/20 07:24 Freq: Status: Active Protocol: Document 05/30/20 10:30 MB (Rec: 05/30/20 13:32 MB [id number]) Shoulder Strength Shoulder Manual Muscle Testing Right Comments R shoulder MMT deferred at this time. Left Comments Left UE strength WNLs Elbow/Forearm Strength Elbow and Forearm Manual Muscle Testing Right Extension (C7) 5 Normal Comments Other elbow MMT deferred d/t biceps post-op Left Comments Left elbow WNLs Wrist Strength Wrist Manual Muscle Testing Right Flexion (C7) 5 Normal Extension (C6) 5 Normal Left Comments Left wrist WNLs PT-OP-Q Treatments Start: 05/30/20 07:24 Freq: Status: Active Protocol: Document 08/31/20 09:45 MB (Rec: 08/31/20 10:29 MB [id number]) Cardio Equipment Upper Body Ergometer (UBE) Duration (Minutes) 10 Other Alternate forward and backwards every minute Therapeutic Exercises Standing Exercises Row with arms straight and bent Side bilateral Equipment Used Level 2 Comments 5 reps with elbows bent and straight, core tight Body Blade Standing Exercise Name IR stretch Side right Reps/Minutes 7' Comments Classic body blade, pt able to do IR with arm by side today Manual Therapy Treatment Other Other Manual Treatments Thoracic PA mobs grade III-IV, rib recoil, reciprocal inhibition right shoulder ER/ IR, pt matching and resistance PT's resistance PT-OP-T Assessment and Plan Start: 05/30/20 07:24 Freq: Status: Active Protocol: Document 08/31/20 09:45 MB (Rec: 08/31/20 10:29 MB [id number]) Physical Therapy Assessment Goals 5 Detention Goal (LTG) Pt will present with AROM right shoulder to at least 160 deg flexion and abduction to improve functional use of arm by 10/09/2020. 08/01/2020: AROM right shoulder flexion 142 deg (4 reps) and abduction to 130 deg LTG Duration 12 weeks 4 Public Services Librarian Goal (LTG) Pt will perform progressive HEP including AROM, progressive strengthening for shoulder and core, thoracic and cervical mobility to prepare for return to normal activities by 10/09/2020. 08/01/2021: Pt is performing progressive exercises LTG Duration 12 weeks 2 Public Services Librarian Goal (LTG) Pt will present with right shoulder AROM 70 deg ER and IR with shoulder in 90/90 in supine by 10/09/2020. 08/01/2020: Pt presents with PROM right shoulder ER to 60 deg and IR to 35 deg with shoulder in 90/90 today LTG Duration 12 weeks 1 Public Services Librarian Goal (LTG) Pt will present with QuickDASH score reflecting no more than 20% impairment to prepare for return to work by 10/09/2020. 08/01/2020: QuickDASH score reflects 30% impairment. LTG Duration 12 weeks Assessment Summary Assessment Progressed scapular strengthening this date. Pt tolerates thoracic mobility and scapular mobs well. Initiated manual neuro re-ed today. Physical Therapy Plan Frequency and Duration Frequency of Treatment 2x/Week Duration of Treatment 12 weeks Plan of Care Start Date 08/01/20 Plan of Care End Date 10/09/20 Therapeutic Interventions Therapeutic Interventions Canalithic Repositioning, Coordination Training,Home Exercise Program,Joint Mobilizations,Manual Therapy, Neuromuscular Re-education, Patient/Caregiver Education, Self-Care/Home Management,Soft Tissue Mobilization,Taping, Therapeutic Activities, Therapeutic Exercises Modalities Cold Pack/Ice Massage,Electric Stimulation,Hot Packs, Ultrasound Next Visit Focus/Plan Next Note Type Treatment Note Next Visit Plan Ongoing manual work, PNF, progressive functional exercises to prepare for return to work
--- NOTE | 2020-09-05 10:35 | PT.OTN ---
Current Diagnoses Strain of muscle(s) and tendon(s) of the rotator cuff of right shoulder, initial encounter (09/05/20) Physical Therapy Treatment Note PT-OP-A Visit Information Start: 05/30/20 07:24 Freq: Status: Active Protocol: Document 09/05/20 09:45 MB (Rec: 09/05/20 10:29 MB [id number]) Out-Patient Physical Therapy Visit Information Visit Information Visit Type Treatment Note Visit Start Time 09:45 Visit Stop Time 10:28 Total Visit Minutes 43 Visit Number PT-OP-B Current Condition Start: 05/30/20 07:24 Freq: Status: Active Protocol: Document 05/30/20 10:30 MB (Rec: 05/30/20 10:49 MB [id number]) Current Condition History of Current Condition Onset Date Chronic injury, right shoulder arthroscopic surgery 2019 Current Complaints Pain and not being able to use right arm, trouble sleeping History of Current Condition 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 Pt reports chronic right shoulder injury including biceps tear, bone spurs. He underwent arthroscopic surgery on 05/05/2020. He has an abduction sling, was given pendulum exercises and is currently NWB, no active movement. He is moving his right hand. Pt was icing. He reports 4/10 right anterior and posterior shoulder pain. He is sleeping in the bed with sling on. He sees doctor again in six weeks and should hear about sling wear. PMH: Left rotator cuff surgery 10 years ago, left ACL repair x3, left ulnar nerve transposition, TIA 2019 (pt had vision changes) and pt denies residual symptoms, pt takes statin and aspirin, ulcerative colitis and pt has trouble with oral medications. His blood pressure fluctuates . Pt reports occ tingling around incision areas on top of right shoulder. Pt has five arthroscopic incisions. Treatment Goals Patient/Caregiver Goals To get back to normal. PT-OP-C Subjective Start: 05/30/20 07:24 Freq: Status: Active Protocol: Document 09/05/20 09:45 MB (Rec: 09/05/20 10:29 MB [id number]) OP-PT Subjective Patient Comments Patient Comments Pretty good. When PT asks pt how he is doing PT-OP-K Range of Motion Start: 05/30/20 07:24 Freq: Status: Active Protocol: Document 05/30/20 10:30 MB (Rec: 05/30/20 13:32 MB [id number]) Cervical Spine Range of Motion Cervical Spine Active Testing Position Standing Flexion 35 Extension 45 Rotation Left 60 Rotation Right 55 Lateral Flexion Left 20 Lateral Flexion Right 20 Shoulder Goniometric Range of Motion Shoulder Right Shoulder ROM WFL No Testing Position Supine Left Shoulder ROM WFL Yes Testing Position Supine Flexion 70 Abduction 90 External Rotation at 90 degrees 5 Abduction Shoulder ROM Limitations Shoulder ROM Limitations Soft Tissue Tightness,Muscle Weakness,Pain,Swelling Comments PROM right shoulder only in supine with head and neck supported. With shoulder at 90 /90, IR is 10 deg. Pain limitations all ranges with 8/ 10 pain with passive flexion and abduction. Elbow/Forearm Range of Motion Elbow/Forearm Right Elbow/Forearm ROM WFL Yes ROM Testing Position Supine Left Elbow/Forearm ROM WFL Yes Elbow/Forearm ROM Limitations Comments Did not encourage pt to push through supination or pronation d/t biceps tear, post-op repair and bruising PT-OP-M Strength Start: 05/30/20 07:24 Freq: Status: Active Protocol: Document 05/30/20 10:30 MB (Rec: 05/30/20 13:32 MB [id number]) Shoulder Strength Shoulder Manual Muscle Testing Right Comments R shoulder MMT deferred at this time. Left Comments Left UE strength WNLs Elbow/Forearm Strength Elbow and Forearm Manual Muscle Testing Right Extension (C7) 5 Normal Comments Other elbow MMT deferred d/t biceps post-op Left Comments Left elbow WNLs Wrist Strength Wrist Manual Muscle Testing Right Flexion (C7) 5 Normal Extension (C6) 5 Normal Left Comments Left wrist WNLs PT-OP-Q Treatments Start: 05/30/20 07:24 Freq: Status: Active Protocol: Document 09/05/20 09:45 MB (Rec: 09/05/20 10:29 MB [id number]) Cardio Equipment Upper Body Ergometer (UBE) Duration (Minutes) 10 Other Alternate forward and back every 1' Therapeutic Exercises Standing Exercises Row with arms straight and bent Side bilateral Equipment Used Pt's therapy tubing 10 and 20# Comments 10 reps, to use 20# Other Exercises IR with therapy tubing Side bilateral Comments 5 reps B and pt to use 10# tubing at home PNF sword and sheath Side bilateral Comments Pt's 10# tubing, 15 reps ER with therapy tubing Side bilateral Comments Pt's 10# tubing, 20 reps B Neuro Re-Education Treatment Movement Re-Education Movement Re-education Activities PNF right shoulder and scapula with pt in side lying and PT manual asst, scapular retraction and protraction, shoulder elevation and depression and shoulder abduction PT-OP-T Assessment and Plan Start: 05/30/20 07:24 Freq: Status: Active Protocol: Document 09/05/20 09:45 MB (Rec: 09/05/20 10:29 MB [id number]) Physical Therapy Assessment Goals 5 Assisted Goal (LTG) Pt will present with AROM right shoulder to at least 160 deg flexion and abduction to improve functional use of arm by 10/09/2020. 08/01/2020: AROM right shoulder flexion 142 deg (4 reps) and abduction to 130 deg LTG Duration 12 weeks 4 Assisted Goal (LTG) Pt will perform progressive HEP including AROM, progressive strengthening for shoulder and core, thoracic and cervical mobility to prepare for return to normal activities by 10/09/2020. 08/01/2021: Pt is performing progressive exercises LTG Duration 12 weeks 2 Mat Sewer Goal (LTG) Pt will present with right shoulder AROM 70 deg ER and IR with shoulder in 90/90 in supine by 10/09/2020. 08/01/2020: Pt presents with PROM right shoulder ER to 60 deg and IR to 35 deg with shoulder in 90/90 today LTG Duration 12 weeks 1 Mat Sewer Goal (LTG) Pt will present with QuickDASH score reflecting no more than 20% impairment to prepare for return to work by 10/09/2020. 08/01/2020: QuickDASH score reflects 30% impairment. LTG Duration 12 weeks Assessment Summary Assessment Pt brings in his therapy tubing to use for UE strengthening in standing and added some exercises to HEP using these. See next treatment notes for plan next time. Physical Therapy Plan Frequency and Duration Frequency of Treatment 2x/Week Duration of Treatment 12 weeks Plan of Care Start Date 08/01/20 Plan of Care End Date 10/09/20 Therapeutic Interventions Therapeutic Interventions Canalithic Repositioning, Coordination Training,Home Exercise Program,Joint Mobilizations,Manual Therapy, Neuromuscular Re-education, Patient/Caregiver Education, Self-Care/Home Management,Soft Tissue Mobilization,Taping, Therapeutic Activities, Therapeutic Exercises Modalities Cold Pack/Ice Massage,Electric Stimulation,Hot Packs, Ultrasound Next Visit Focus/Plan Next Note Type Treatment Note Next Visit Plan Ongoing manual work, PNF, progressive functional exercises to prepare for return to work
--- NOTE | 2020-09-12 10:17 | PT.OTN ---
Current Diagnoses Strain of muscle(s) and tendon(s) of the rotator cuff of right shoulder, initial encounter (09/12/20) Physical Therapy Treatment Note PT-OP-A Visit Information Start: 05/30/20 07:24 Freq: Status: Active Protocol: Document 09/12/20 09:47 MB (Rec: 09/12/20 10:16 MB [id number]) Out-Patient Physical Therapy Visit Information Visit Information Visit Type Treatment Note Visit Start Time 09:47 Visit Stop Time 10:13 Total Visit Minutes 26 Visit Number PT-OP-B Current Condition Start: 05/30/20 07:24 Freq: Status: Active Protocol: Document 05/30/20 10:30 MB (Rec: 05/30/20 10:49 MB [id number]) Current Condition History of Current Condition Onset Date Chronic injury, right shoulder arthroscopic surgery 2019 Current Complaints Pain and not being able to use right arm, trouble sleeping History of Current Condition 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 Pt reports chronic right shoulder injury including biceps tear, bone spurs. He underwent arthroscopic surgery on 05/05/2020. He has an abduction sling, was given pendulum exercises and is currently NWB, no active movement. He is moving his right hand. Pt was icing. He reports 4/10 right anterior and posterior shoulder pain. He is sleeping in the bed with sling on. He sees doctor again in six weeks and should hear about sling wear. PMH: Left rotator cuff surgery 10 years ago, left ACL repair x3, left ulnar nerve transposition, TIA 2019 (pt had vision changes) and pt denies residual symptoms, pt takes statin and aspirin, ulcerative colitis and pt has trouble with oral medications. His blood pressure fluctuates . Pt reports occ tingling around incision areas on top of right shoulder. Pt has five arthroscopic incisions. Treatment Goals Patient/Caregiver Goals To get back to normal. PT-OP-C Subjective Start: 05/30/20 07:24 Freq: Status: Active Protocol: Document 09/12/20 09:47 MB (Rec: 09/12/20 10:16 MB [id number]) OP-PT Subjective Patient Comments Patient Comments I'm alright. PT-OP-K Range of Motion Start: 05/30/20 07:24 Freq: Status: Active Protocol: Document 05/30/20 10:30 MB (Rec: 05/30/20 13:32 MB [id number]) Cervical Spine Range of Motion Cervical Spine Active Testing Position Standing Flexion 35 Extension 45 Rotation Left 60 Rotation Right 55 Lateral Flexion Left 20 Lateral Flexion Right 20 Shoulder Goniometric Range of Motion Shoulder Right Shoulder ROM WFL No Testing Position Supine Left Shoulder ROM WFL Yes Testing Position Supine Flexion 70 Abduction 90 External Rotation at 90 degrees 5 Abduction Shoulder ROM Limitations Shoulder ROM Limitations Soft Tissue Tightness,Muscle Weakness,Pain,Swelling Comments PROM right shoulder only in supine with head and neck supported. With shoulder at 90 /90, IR is 10 deg. Pain limitations all ranges with 8/ 10 pain with passive flexion and abduction. Elbow/Forearm Range of Motion Elbow/Forearm Right Elbow/Forearm ROM WFL Yes ROM Testing Position Supine Left Elbow/Forearm ROM WFL Yes Elbow/Forearm ROM Limitations Comments Did not encourage pt to push through supination or pronation d/t biceps tear, post-op repair and bruising PT-OP-M Strength Start: 05/30/20 07:24 Freq: Status: Active Protocol: Document 05/30/20 10:30 MB (Rec: 05/30/20 13:32 MB [id number]) Shoulder Strength Shoulder Manual Muscle Testing Right Comments R shoulder MMT deferred at this time. Left Comments Left UE strength WNLs Elbow/Forearm Strength Elbow and Forearm Manual Muscle Testing Right Extension (C7) 5 Normal Comments Other elbow MMT deferred d/t biceps post-op Left Comments Left elbow WNLs Wrist Strength Wrist Manual Muscle Testing Right Flexion (C7) 5 Normal Extension (C6) 5 Normal Left Comments Left wrist WNLs PT-OP-Q Treatments Start: 05/30/20 07:24 Freq: Status: Active Protocol: Document 09/12/20 09:47 MB (Rec: 09/12/20 10:16 MB [id number]) Cardio Equipment Upper Body Ergometer (UBE) Duration (Minutes) 15 Other 1' forward and 1' backward Therapeutic Exercises Other Exercises Reviewed HEP exercises verbally Comments Reviewed all exercises on d/c date and pt has no questions PT-OP-T Assessment and Plan Start: 05/30/20 07:24 Freq: Status: Active Protocol: Document 09/12/20 09:47 MB (Rec: 09/12/20 10:16 MB [id number]) Physical Therapy Assessment Goals 5 Mason Helper Goal (LTG) Pt will present with AROM right shoulder to at least 160 deg flexion and abduction to improve functional use of arm by 10/09/2020. 09/12/2020: AROM right shoulder flexion functionally equal to the left and abduction to 148 deg and pt to con't with abduction exercises LTG Duration Partially met 4 Mason Helper Goal (LTG) Pt will perform progressive HEP including AROM, progressive strengthening for shoulder and core, thoracic and cervical mobility to prepare for return to normal activities by 10/09/2020. 09/12/2020: Pt is performing progressive exercises including strengthening and functional exercises LTG Duration Met 2 Detention Goal (LTG) Pt will present with right shoulder AROM 70 deg ER and IR with shoulder in 90/90 in supine by 10/09/2020. 09/12/2020: Pt presents with PROM right shoulder ER and IR to 70 deg in 90/90 today LTG Duration Met 1 Mason Helper Goal (LTG) Pt will present with QuickDASH score reflecting no more than 20% impairment to prepare for return to work by 10/09/2020. 09/12/2020: QuickDASH score reflects 6.8% impairment LTG Duration Met Assessment Summary Assessment Pt has met the following goals since starting PT: right shoulder ER and IR ROM, QuickDASH score (far surpassed goal) and HEP goal including strengthening. He has met right shoulder flexion AROM goal and has progressed towards abduction goal and his abduction is functional. Pt will con't to work on abduction with exercises. He has maximized PT potential. Will d/c PT. Physical Therapy Plan Frequency and Duration Frequency of Treatment 2x/Week Duration of Treatment 12 weeks Plan of Care Start Date 08/01/20 Plan of Care End Date 10/09/20 Therapeutic Interventions Therapeutic Interventions Canalithic Repositioning, Coordination Training,Home Exercise Program,Joint Mobilizations,Manual Therapy, Neuromuscular Re-education, Patient/Caregiver Education, Self-Care/Home Management,Soft Tissue Mobilization,Taping, Therapeutic Activities, Therapeutic Exercises Modalities Cold Pack/Ice Massage,Electric Stimulation,Hot Packs, Ultrasound Next Visit Focus/Plan Next Note Type Treatment Note Next Visit Plan Ongoing manual work, PNF and resisted isometrics, progressive functional exercises to prepare for return to work
== END 2020-09-22 12:38 | disposition home or self-care (01) ==
LOC: PHYS 09:45
PROVIDERS: Family Provider Family Medicine; PCP Family Medicine; Referring Provider Orthopaedic Surgery; Visit Provider Orthopaedic Surgery
DX: S46.011A Strain of muscle(s) and tendon(s) of the rotator cuff of right shoulder, initial encounter (principal)
CPT/HCPCS: 97110; 97112; 97140; 97161

== ENCOUNTER → 2021-01-29 13:20 | Outpatient (CLI) | payer OTHER, SELFPAY ==
[2020-07-20 09:20] VITALS: BMI 30.8
--- NOTE | 2021-01-29 13:22 | DI.RAD.S_ITS ---
PROCEDURE: XR ANKLE LT MIN 3V INDICATIONS: left ankle pain chronic TECHNIQUE: 3 views of the ankle were acquired. COMPARISON: [facility], CR, XR ANKLE LT MIN 3V, 01/05/2020, 9:24. FINDINGS: Bones: No fractures or dislocations. Ankle mortise is normally aligned. No suspicious bony lesions. Small plantar calcaneal bone spur. Soft tissues: No tibiotalar joint effusion. Achilles tendon appears normal. IMPRESSION: No fracture. No acute osseous lesion. If symptoms and/or clinical suspicion for pathology persists, further assessment with advanced imaging (e.g. CT, MRI or bone scan) should be considered. Dictated by: Marlee Sanches MD, PhD on 01/29/2021 at 17:28 Approved by: Marlee Sanches MD, PhD on 01/29/2021 at 17:28
== END ==
PROVIDERS: Family Provider Family Medicine; PCP Family Medicine; Referring Provider Family Medicine; Visit Provider Family Medicine
DX: M19.072 Primary osteoarthritis, left ankle and foot (principal); E78.2 Mixed hyperlipidemia; M25.572 Pain in left ankle and joints of left foot; G89.29 Other chronic pain
CPT/HCPCS: 73610

== ENCOUNTER → 2024-03-11 08:27 | Outpatient (CLI) | payer OTHER, SELFPAY ==
[2020-07-20 09:20] VITALS: BMI 30.8
[2024-03-11 09:03] LABS: Add Manual Diff / Slide Review NO; Basophils Absolute Auto 100 /uL (0-100); Basophils Percent Auto 0.9 % (0-2); Eosinophils Absolute Auto 300 /uL (0-450); Eosinophils Percent Auto 2.7 % (2-4); Hematocrit 47.3 % (41-53); Hemoglobin 15.8 g/dL (13.5-17.5); Lymphocytes Absolute Auto 2600 /uL (1100-4500); Lymphocytes Percent Auto 21.8 % (25-40); Mean Corpuscular HGB Conc 33.4 % (30-36); Mean Corpuscular Hemoglobin 29.7 PG (26-34); Mean Corpuscular Volume 88.8 fL (80-100); Monocytes Absolute Auto 1000 /uL (0-900); Monocytes Percent Auto 8.3 % (3-14); Neutrophils Absolute Auto 8000 /uL (1500-7000); Neutrophils Percent Auto 66.3 % (50-75); Platelet Count 290 X10^3/uL (150-400); Red Blood Cell Count 5.32 X10^6/uL (4.5-5.9); Red Cell Distribution Width 14.9 % (11.6-14.8); White Blood Cell Count 12.1 X10^3/uL (4.5-11.0)
[2024-03-11 09:28] LABS: Alanine Aminotransferase 20 IU/L (<50); Albumin 4.4 g/dL (3.5-5.0); Albumin Globulin Ratio 1.5 (1.0-2.8); Alkaline Phosphatase 88 U/L (38-126); Aspartate Aminotransferase 21 IU/L (17-59); Bilirubin Total 0.5 mg/dL (0.2-1.3); Blood Urea Nitrogen 9 mg/dL (9-20); Calcium 9.4 mg/dL (8.4-10.2); Carbon Dioxide 25 mmol/L (22-32); Chloride 108 mmol/L (98-107); Cholesterol 273 mg/dL (140-199); Estimated Glomerular Filt Rate > 60 mL/min (>60); Globulin 2.9 g/dL (1.7-4.1); Glucose 104 mg/dL (70-100); HDL Cholesterol 38 mg/dL (40-60); HEMOLYSIS < 15 (0-50); LDL Cholesterol Calculated 214 mg/dL (<100); Potassium 4.6 mmol/L (3.4-5.1); Sodium 140 mmol/L (137-145); Total Protein 7.3 g/dL (6.3-8.2); Triglycerides 104 mg/dL (35-150)
[2024-03-11 09:52] LABS: Microalbumin Urine Random 1.8 mg/dL (0-1.6)
[2024-03-11 09:54] LABS: Prostate Specific Antigen Scrn 2.51 ng/mL (0.1-4.0)
[2024-03-11 09:56] LABS: TSH w/ Reflex to FT4 0.88 uIU/mL (0.47-4.68)
[2024-03-12 04:09] LABS: Apolipoprotein B 153 mg/dL (<90)
== END ==
PROVIDERS: Family Provider Family Medicine; PCP Family Medicine; Referring Provider Family Medicine; Visit Provider Family Medicine
DX: Z12.5 Encounter for screening for malignant neoplasm of prostate (principal); E78.2 Mixed hyperlipidemia; K51.90 Ulcerative colitis, unspecified, without complications; R03.0 Elevated blood-pressure reading, without diagnosis of hypertension
CPT/HCPCS: 36415; 80053; 80061; 82043; 82172; 82570; 84443; 85025; G0103

== ENCOUNTER → 2024-05-01 08:15 | Outpatient (CLI) | payer OTHER, SELFPAY ==
[2020-07-20 09:20] VITALS: BMI 30.8
[2024-05-01 08:38] LABS: Add Manual Diff / Slide Review NO; Basophils Absolute Auto 200 /uL (0-100); Basophils Percent Auto 1.3 % (0-2); Eosinophils Absolute Auto 400 /uL (0-450); Eosinophils Percent Auto 3.1 % (2-4); Hemoglobin 15.5 g/dL (13.5-17.5); Lymphocytes Absolute Auto 2300 /uL (1100-4500); Mean Corpuscular HGB Conc 33.8 % (30-36); Mean Corpuscular Hemoglobin 30.2 PG (26-34); Mean Corpuscular Volume 89.4 fL (80-100); Monocytes Absolute Auto 1000 /uL (0-900); Monocytes Percent Auto 8.9 % (3-14); Neutrophils Absolute Auto 7600 /uL (1500-7000); Neutrophils Percent Auto 66.7 % (50-75); Platelet Count 269 X10^3/uL (150-400); Red Blood Cell Count 5.14 X10^6/uL (4.5-5.9); Red Cell Distribution Width 14.5 % (11.6-14.8); White Blood Cell Count 11.5 X10^3/uL (4.5-11.0)
[2024-05-01 08:46] LABS: Alanine Aminotransferase 27 IU/L (<50); Albumin 4.2 g/dL (3.5-5.0); Albumin Globulin Ratio 1.6 (1.0-2.8); Alkaline Phosphatase 100 U/L (38-126); Aspartate Aminotransferase 31 IU/L (17-59); Bilirubin Total 0.5 mg/dL (0.2-1.3); Blood Urea Nitrogen 16 mg/dL (9-20); Calcium 8.9 mg/dL (8.4-10.2); Carbon Dioxide 23 mmol/L (22-32); Chloride 110 mmol/L (98-107); Cholesterol 243 mg/dL (140-199); Estimated Glomerular Filt Rate > 60 mL/min (>60); Globulin 2.6 g/dL (1.7-4.1); Glucose 125 mg/dL (70-100); HDL Cholesterol 33 mg/dL (40-60); HEMOLYSIS < 15 (0-50); LDL Cholesterol Calculated 187 mg/dL (<100); Potassium 4.1 mmol/L (3.4-5.1); Sodium 140 mmol/L (137-145); Total Protein 6.8 g/dL (6.3-8.2); Triglycerides 113 mg/dL (35-150)
[2024-05-01 09:26] LABS: Creatinine Urine Random 213.81 mg/dL
== END ==
PROVIDERS: Family Provider Family Medicine; PCP Family Medicine; Referring Provider Family Medicine; Visit Provider Family Medicine
DX: E78.2 Mixed hyperlipidemia (principal); D72.829 Elevated white blood cell count, unspecified; R80.9 Proteinuria, unspecified; R03.0 Elevated blood-pressure reading, without diagnosis of hypertension
CPT/HCPCS: 36415; 80053; 80061; 82043; 82570; 85025

== ENCOUNTER → 2025-03-31 17:11 | Outpatient (CLI) | payer OTHER, SELFPAY ==
[2020-07-20 09:20] VITALS: BMI 30.8
--- NOTE | 2025-03-31 17:13 | DI.RAD.S_ITS ---
PROCEDURE: XR HIP W PEL IF DONE BILAT 2V INDICATIONS: neck, bilateral hip and left shoulder pain TECHNIQUE: AP pelvis with lateral view(s) of the bilateral hip(s). COMPARISON: None. FINDINGS: Bones: No fractures or dislocations. Pelvic ring appears intact. No suspicious bony lesions. Mild degenerative changes of the bilateral femoroacetabular joints. Lower lumbar spondylosis. Soft tissues: The visualized bowel gas pattern is normal. No suspicious soft tissue calcifications. IMPRESSION: Bilateral hip and pelvis without acute osseous abnormalities. Mild bilateral femoroacetabular osteoarthrosis. Lower lumbar spondylosis. Dictated by: Erick Thompson M.D. on 04/01/2025 at 9:41 Approved by: Erick Thompson M.D. on 04/01/2025 at 9:42
--- NOTE | 2025-03-31 17:13 | DI.RAD.S_ITS ---
PROCEDURE: XR SHOULDER LT MIN 2V INDICATIONS: neck, bilateral hip and left shoulder pain TECHNIQUE: 3 views of the shoulder were acquired. COMPARISON: [facility], CR, XR SHOULDER RT MIN 2V, 01/19/2020, 9:31. FINDINGS: Bones: No fractures or dislocations. No suspicious bony lesions. Visualized ribs appear intact. There are degenerative changes involving the acromioclavicular and glenohumeral joints. Coracoclavicular and acromioclavicular intervals are maintained. Soft tissues: No suspicious soft tissue calcifications. IMPRESSION: Degenerative changes of the acromioclavicular and glenohumeral joints. No acute fracture or dislocation. If there are persistent symptoms or clinical suspicion for pathology, then repeat radiographs or advanced imaging (CT or MRI) may be considered for further evaluation. Dictated by: Erick Thompson M.D. on 04/01/2025 at 9:43 Approved by: Erick Thompson M.D. on 04/01/2025 at 9:43
--- NOTE | 2025-03-31 17:13 | DI.RAD.S_ITS ---
PROCEDURE: XR CERVICAL SPINE 2V OR 3V INDICATIONS: neck, bilateral hip and left shoulder pain TECHNIQUE: 3 view(s) of the cervical spine were acquired. COMPARISON: None. FINDINGS: Bones: No fractures or dislocations to the superior endplate of T1 level. The lateral masses of C1 appear intact on the odontoid view. No suspicious bony lesions. Multilevel cervical spondylosis most pronounced at C5-6 through C7-T1. Soft tissues: No prevertebral soft tissue swelling. IMPRESSION: No displaced fracture or traumatic subluxation. Multilevel cervical spondylosis. Dictated by: Erick Thompson M.D. on 04/01/2025 at 9:40 Approved by: Erick Thompsno M.D. on 04/01/2025 at 9:41
== END ==
LOC: RAD 17:13
PROVIDERS: PCP Family Medicine; Referring Provider Family Medicine; Visit Provider Family Medicine
DX: M47.812 Spondylosis without myelopathy or radiculopathy, cervical region (principal); M54.2 Cervicalgia; M25.512 Pain in left shoulder; M16.0 Bilateral primary osteoarthritis of hip; M47.816 Spondylosis without myelopathy or radiculopathy, lumbar region; M25.551 Pain in right hip; M25.552 Pain in left hip; G89.29 Other chronic pain
CPT/HCPCS: 72040; 73030; 73521

== ENCOUNTER → 2025-04-19 19:09 | Outpatient (CLI) | payer OTHER, SELFPAY ==
[2020-07-20 09:20] VITALS: BMI 30.8
--- NOTE | 2025-04-19 19:11 | DI.MRI.S_ITS ---
PROCEDURE: MR SHOULDER LT WO CON INDICATIONS: Concern for rotator cuff tear TECHNIQUE: Noncontrast oblique coronal T2 fast spin echo with fat saturation, oblique sagittal T1 spin echo and T2 fast spin echo with fat saturation, axial T1 spin echo and T2 fast spin echo with fat saturation through the shoulder. COMPARISON: [facility], MR, MR SHOULDER RT WO CON, 02/01/2020, 16:05. FINDINGS: Image quality: Excellent. Rotator cuff: There is prior rotator cuff tendon repair. Tendinosis and low to moderate grade articular and bursal surface partial thickness tear involving distal supraspinatus at its insertion on humeral head is seen. Distal infraspinatus and subscapularis tendinosis is noted. No full-thickness rotator cuff tendon rupture. Sagittal images demonstrate no significant rotator muscle atrophy. Bones and bursae: Susceptibility artifacts are noted in lateral humeral head. No acute fracture or dislocation. No gross marrow edema. Likely postsurgical widening of acromioclavicular joint. Type 2 acromion without os acromiale. Small amount of joint effusion and subacromial subdeltoid bursal fluid, no loose bodies. Capsule and soft tissues: Subtle signal abnormality and fraying involving superior anterior glenoid labrum is seen. Similar signal abnormality involving anterior inferior glenoid labrum is also noted. Proximal long head of biceps tendinosis and low- grade intrasubstance partial-thickness tear is seen. IMPRESSION: 1. Postsurgical changes from prior rotator cuff tendon repair and likely postsurgical widening of acromioclavicular joint. No marrow edema. No acute fracture or dislocation. Small joint effusion, no loose bodies. 2. Low to moderate grade articular and bursal surface partial thickness tear involving distal supraspinatus mid fibers at its insertion on the humeral head extending to musculotendinous junction. Distal infraspinatus and subscapularis tendinosis. No full-thickness rotator cuff tendon rupture. No significant muscle atrophy. 3. Finding is suggestive of subtle superior anterior left glenoid labral tear and subtle anterior inferior glenoid labral tear. 4. Low-grade intrasubstance partial-thickness tear involving proximal long head of biceps tendon at the level of greater tuberosity. Dictated by: Alex Dallas M.D. on 04/20/2025 at 10:32 Approved by: Alex Dallas M.D. on 04/20/2025 at 10:38
== END ==
LOC: MRI 19:10
PROVIDERS: PCP Family Medicine; Referring Provider Orthopaedic Surgery Adult Reconstructive Orthopaedic Surgery; Visit Provider Orthopaedic Surgery Adult Reconstructive Orthopaedic Surgery
DX: M75.42 Impingement syndrome of left shoulder (principal); M75.112 Incomplete rotator cuff tear or rupture of left shoulder, not specified as traumatic; S46.112A Strain of muscle, fascia and tendon of long head of biceps, left arm, initial encounter; M25.412 Effusion, left shoulder
CPT/HCPCS: 73221

== ENCOUNTER → 2025-05-27 15:43 | Outpatient (CLI) | payer OTHER, SELFPAY ==
[2020-07-20 09:20] VITALS: BMI 30.8
--- NOTE | 2025-05-27 15:44 | DI.US.S_ITS ---
PROCEDURE: US THYROID INDICATIONS: Thyroid nodule re-eval TECHNIQUE: Real-time scanning was performed of the thyroid gland, with image documentation. COMPARISON: None. FINDINGS: Thyroid: Right lobe measures 5.8 x 2.2 x 2.6 cm. Left lobe measures 6.0 x 2.4 x 2.8 cm. Isthmus is 0.5 cm thick. Echotexture is heterogeneous. Nodule number: 1 Location: Left middle/lower pole Size: 1.9 x 1.5 x 1.6 cm. Composition: Cystic Echogenicity: Anechoic Shape: wider than tall. Margins: Smooth Echogenic foci: None Total points: 0 ACR TI-RADS category: Category 1 Nodule number: 2 Location: Right middle pole Size: 1.2 x 1.3 x 0.7 cm. Composition: Solid Echogenicity: Hypoechoic Shape: wider than tall. Margins: Smooth Echogenic foci: Non Total points: 5 ACR TI-RADS category: Category 4 Nodule number: 3 Location: Right upper pole Size: 1.3 x 0.7 x 0.6 cm. Composition: Solid Echogenicity: Hypoechoic Shape: wider than tall. Margins: Smooth Echogenic foci: None Total points: 5 ACR TI-RADS category: Category 4 Nodule number: 4 Location: Right middle pole Size: 1.2 x 0.8 x 0.8 cm. Composition: Predominantly solid Echogenicity: Isoechoic Shape: wider than tall. Margins: Ill-defined Echogenic foci: Macro calcifications Total points: 6 ACR TI-RADS category: Category 4 IMPRESSION: Multiple thyroid nodules are present. Please see definitions and recommendations below. No nodule is of sufficient size and imaging characteristics to warrant ultrasound-guided FNA at this time. Based on the size of 3 of the nodules, which are category 4 lesions that are greater than 1 cm and less than 1.5 cm, 1 year follow-up thyroid ultrasound is recommended. ACR TI-RADS definitions and recommendations: TI-RADS 1 (benign): 0 points. FNA not needed. TI-RADS 2 (not suspicious): 2 points. FNA not needed. TI-RADS 3: 3 points. * FNA if 2.5 cm or larger, follow up if 1.5 cm or larger (at 1, 3, and 5 years). TI-RADS 4: 4-6 points. * FNA if 1.5 cm or larger, follow up if 1 cm or larger (at 1, 2, 3, and 5 years). TI-RADS 5: 7 points or more. * FNA if 1 cm or larger, follow up if 0.5 cm or larger (every year for 5 years). Dictated by: Jamie Rosado M.D. on 05/27/2025 at 21:35 Approved by: Jamie Rosado M.D. on 05/27/2025 at 21:41
== END ==
LOC: US 15:44
PROVIDERS: PCP Family Medicine; Referring Provider Family Medicine; Visit Provider Family Medicine
DX: E04.2 Nontoxic multinodular goiter (principal); R93.89 Abnormal findings on diagnostic imaging of other specified body structures
CPT/HCPCS: 76536

== ENCOUNTER 2025-07-27 08:47 | Day surgery (SDC) | payer OTHER, SELFPAY ==
[2020-07-20 09:20] VITALS: BMI 30.8
[2025-07-13 09:41] VITALS: BMI 31.3
[2025-07-27] VITALS (14 sets, daily range): BP systolic 118–169; BP diastolic 78–114; PULSE 72–94; RESP 14–27; TEMP 36.4–36.8; O2SAT 92–98
[2025-07-27] MEDS: ACETAMINOPHEN 325 MG TABLET 975 MG PO (10:05)
[2025-07-27] MEDS: LACTATED RINGERS 1,000 ML 42 ML IV (10:05)
--- NOTE | 2025-07-27 11:01 | PM.PREOP ---
Pre-operative Note COVID-19 COVID-19 status: Not tested Interval Note History & Physical reviewed/Exam performed by Physician: Yes Changes to H&P: No
--- NOTE | 2025-07-27 12:27 | SUR.OPER ---
Beach chair with Andrew/Tash shoulder positioner. Lower body on padded OR bed. Head in foam padded head cradle, secured with straps. Non-operative arm secured <90 degrees abduction. Pillow under knees. Safety belt at thigh. Cloth tape over blanket over lower legs.
[2025-07-27] MEDS: SODIUM CHLORIDE IRRIG SOLUTION 3,000 ML, EPINEPHrine 1 MG IRR (13:36)
--- NOTE | 2025-07-27 13:43 | P.OP_ITS ---
Operative Date/Time/Diagnoses Date of procedure: 07/27/25 Time of procedure: 12:40 Pre-op diagnosis: Left shoulder biceps tendinitis and subacromial impingement Post-op diagnosis: same Procedure & Clinicians Procedure: Left shoulder arthroscopy with subacromial decompression and open subpectoral biceps tenodesis Same procedure(s) as scheduled: Yes Surgeon: Glenda Orona Assisted?: Yes Budget Controller: Aura Wang Anesthesia Type: General Operative Notes Findings: see below Closure Type: primary Specimen(s): none sent Applied: none Estimated Blood Loss (mL): 25 Blood products transfused: none Procedure in detail: Implants: 1. Arthrex knotless tension tight button implant system The patient was met in the preoperative hold area the left upper extremity was signed as the correct extremity. The patient was taken back to the operating room. General anesthesia was induced. The patient was placed in the beach chair position. All bony prominences were padded. The patient was positioned in the beach chair ensuring his neck was in neutral alignment. The patient was prepped and draped in the standard sterile fashion. A time-out was performed confirming the correct patient, correct procedure, correct extremity, initials o n the operative site and administration of IV antibiotics A standard posterolateral viewing portal was utilized. A diagnostic arthroscopy was performed. The patient had an inflamed biceps tendon. The biceps tendon was cut and the stump was debrided. The humeral head cartilage and glenoid cartilage were intact. The rotator cuff was explored and found to be intact. There was no HAGL lesion. The subscapularis was intact. After finishing the diagnostic arthroscopy I then performed the open subpectoral biceps tenodesis. A 3 cm incision was made just inferior to the Pec major in the axillary fold. Dissection was taken down through the subcutaneous tissues. The biceps tendon was identified and retrieved from the wound. An Arthrex cortical button was utilized fix the biceps tendon in place.? A free needle was utilized to place the sutures through the tendon. Reinforced the knots were placed. This maintained an excellent onlay technique. I then placed the arthroscopic instruments in the subacromial space and the subacromial space was debrided. There was very thick bursitis that was debrided. I examined the rotator cuff repair and it was found to be intact. The rotator cuff moved in continuity. The acromion was identified found be acromion putting pressure on the rotator cuff. A bur was utilized to co - plane the acromion with the clavicle. ? All incisions were copiously irrigated and the arthroscopy portals were closed with 3-0 nylon. The biceps tenodesis incision was closed with 2-0 Vicryl 3-0 Monocryl and Steri-Strips. A sterile dressing was applied of Xeroform, plain gauze, Medipore tape. At the end of the surgery a total of 25 cc of 0.25% Marcaine was placed into the incision sites. Patient was awoken and taken to the PACU in stable condition. Complications: none Post-operative Condition: stable Disposition: PACU
[2025-07-27] MEDS: hydrOXYzine 50 MG/ML INJ 25 MG IM (14:23)
== END 2025-07-27 15:25 | disposition home or self-care (01) ==
PROVIDERS: PCP Family Medicine; Referring Provider Orthopaedic Surgery; Visit Provider Orthopaedic Surgery
PROC: (CPT 29827; principal; 2025-07-27 11:45)
DX: M75.22 Bicipital tendinitis, left shoulder (principal); M75.42 Impingement syndrome of left shoulder; K51.90 Ulcerative colitis, unspecified, without complications; I10 Essential (primary) hypertension; E78.5 Hyperlipidemia, unspecified; F17.210 Nicotine dependence, cigarettes, uncomplicated; E66.9 Obesity, unspecified; Z68.31 Body mass index [BMI] 31.0-31.9, adult; Z86.73 Personal history of transient ischemic attack (TIA), and cerebral infarction without residual deficits
CPT/HCPCS: 23430; 29822; C1713; J0165; J0689; J1100; J1171; J1885; J2250; J2405; J2704; J3010; J3410; J7120

== ENCOUNTER 2025-09-02 08:45 | Day surgery (SDC) | payer OTHER, SELFPAY ==
[2020-07-20 09:20] VITALS: BMI 30.8
[2025-08-29 14:53] VITALS: BMI 31.3
--- NOTE | 2025-09-02 | PATH_ITS ---
[facility] Accession Number: [id number] No. of containers.. Tissue . 01 Material submitted: . PART A: small bowel - TERMINAL ILEUM PART B: colon - CECUM PART C: colon - COLON, ASCENDING PART D: colon - COLON, ASCENDING POLYP PART E: colon - COLON, TRANSVERSE PART F: colon - COLON, TRANSVERSE POLYP PART G: colon - COLON, DESCENDING PART H: colon - COLON, SIGMOID PART I: rectum - RECTUM . 01 Diagnosis: A. TERMINAL ILEUM: Small bowel mucosa with mild active inflammation. No infectious organisms, granulomas, dysplasia or malignancy. See comment. . B. CECUM: Colonic mucosa with mild active inflammtion and focal crypt architectural distortion. No infectious organisms, granulomas, dysplsaia, or malignancy. See comment. . C. ASCENDING COLON: Colonic mucosa with moderate active inflammation. No infectious organisms, granulomas, dysplasia, or malignancy. See comment. . D. ASCENDING COLON POLYP: Consistent with benign inflammtaory pseudopolyp. . E. TRANSVERSE COLON: Colonic mucosa with no significant pathologic alterations. No signficiant active inflammtaion, infectious organisms, granulomas, dysplasia or malignancy. . F. TRANSVERSE COLON POLYHP: Colonic mcuosa with no significant pathologic alterations. No dysplasia or neoplasia identified. . G. DESCENDING COLON POLYP: Colonic mucosa with mild active inflammation. No infectious organisms, granulomas, dysplasia, or malignancy. See comment. H. SIGMOID COLON: Colonic mucosa with mild active inflammation and crypt architectural distortion. No infectious organisms, granulomas, dysplasia, or malignancy. See comment. . I. RECTUM: Colonic mucosa with no significant pathologic alterations. No signficiant active inflammtaion, infectious organisms, granulomas, dysplasia or malignancy. [facility] 09/06/2025 1458 Local . 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 Correlation with clinical features is needed to establish a diagnosis to distinguish between the diagnosis of Crohn's disease and ulcerative colitis. . 01 Electronically signed: . Caitie Jacques MD, Pathologist NPI- [id number] . 01 Gross description: . A. Received in formalin with two patient identifiers, and terminal ileum are two, 0.3-0.4 cm zuñiga tissue fragments, entirely submitted in A1. B. Received in formalin with two patient identifiers, and cecum are two, 0.2-0.3 cm zuñiga tissue fragments, entirely submitted in B1. C. Received in formalin with two patient identifiers, and ascending colon are two, 0.3-0.5 cm, zuñiga tissue fragments, entirely submitted in C1. D. Received in formalin with two patient identifiers, and ascending colon polyp are four, 0.2-0.5 cm zuñiga tissue fragments, entirely submitted in D1. E. Received in formalin with two patient identifiers, and transverse colon biopsy are two, 0.2-0.3 cm zuñiga tissue fragments, entirely submitted in E1. F. Received in formalin with two patient identifiers, and transverse colon polyp are four, 0.3-0.4 cm zuñiga tissue fragments, entirely submitted in F1. G. Received in formalin with two patient identifiers, and descending colon are two, 0.2-0.3 cm, zuñiga tissue fragments, entirely submitted in G1. H. Received in formalin with two patient identifiers, and sigmoid colon biopsy are two, 0.3-0.4 cm zuñiga tissue fragments, entirely submitted in H1. I. Received in formalin with two patient identifiers, and rectum are two, 0.2-0.3 cm zuñiga tissue fragments, entirely submitted in I1. ([id number]) /MRV 09/06/2025 1127 Local . 01 Pathologist provided ICD-10: K52.89 . 01 CPT . 083572, [id number], [id number], [id number], [id number], [id number], [id number], [id number], [id number] Specimen Comment: A courtesy copy of this report has been sent to [phone] Performed at: [address] [facility], [place], [place] [id number] MD Brannon Lima MD Phone: [phone]
[2025-09-02] MEDS: LACTATED RINGERS 1,000 ML 42 ML IV (09:16)
[2025-09-02 09:17] VITALS: BP 171/117; PULSE 106; RESP 16; TEMP 36.3; O2SAT 95
--- NOTE | 2025-09-02 09:25 | PM.HP.IH.1 ---
History of Present Illness History of Present Illness Date Patient Seen: 09/02/25 Time Patient Seen: 09:25 Chief complaint: Colonoscopy Narrative: Phill is a 60-year-old man who presents for a colonoscopy. His last colonoscopy was in 2017. He believes he has never had polyps but he has been diagnosed with ulcerative colitis. It is well controlled and he does not take any medications for it. [facility] Medical History (Updated 09/02/25 @ 09:26 by Ede Tucker MD) Iron (Fe) deficiency anemia Hyperthyroidism HLD (hyperlipidemia) TIA (transient ischemic attack) (2018) Pes planus of both feet Hypertension Surgical History (Updated 08/29/25 @ 14:55 by Micaela Martinez RN) History of arthroscopy of left shoulder (07/27/25) History of surgery on left wrist S/P ACL reconstruction Hx of repair of rotator cuff Social History household members: spouse Smoking Status: Current every day smoker alcohol intake: current Meds Home Medications and Allergies Home Medications ?Medication ?Instructions ?Recorded ?Confirmed ?Type rosuvastatin 10 mg tablet (Crestor) 10 mg PO DAILY #90 tabs 03/31/25 09/02/25 Rx losartan 50 mg tablet 50 mg PO DAILY 07/13/25 09/02/25 History sodium,potassium,mag sulfates 17.5 See Rx Instructions PO .COMPLEX 07/28/25 08/09/25 Rx gram-3.13 gram-1.6 gram oral soln #354 mL (Suprep Bowel Prep Kit) Allergies Allergy/AdvReac Type Severity Reaction Status Date / Time azathioprine (From [facility]) Allergy Unknown joint pain Verified 09/02/25 08:47 tetracycline (TETRACYCLINE) Allergy Unknown has not Verified 09/02/25 08:47 taken since infancy Exam Vital Signs (past 8 hours): - 09/02/25 09:17 Temperature 97.4 F L Pulse Rate 106 H Respiratory Rate 16 Blood Pressure 171/117 H Pulse Oximetry 95 Oxygen Delivery Method Room Air Oxygen Delivery Method Room Air Const General: healthy appearing Assessment & Plan Assessment and plan (1) Colon cancer screening: Status: Acute Plan Colonoscopy Time-Based Coding :: [TOTAL MINUTES] spent with patient and on the chart (including review of chart, obtaining history, exam, reviewing outside data, placing orders, documenting exam and treatment plan, and counseling patient) on [DATE]. [employer] Document charge(s): No
[2025-09-02 10:10] VITALS: BP 129/84; PULSE 89; RESP 24; TEMP 36.2; O2SAT 95
[2025-09-02 10:15] VITALS: BP 138/95; PULSE 92; RESP 24; O2SAT 95
--- NOTE | 2025-09-02 10:17 | PM.OP.COLON ---
Operative Date/Time/Diagnoses Date of procedure: 09/02/25 Time of procedure: 10:17 Pre-op diagnosis: Colon cancer screening Post-op diagnosis: same Procedure & Clinicians Study performed: Colonoscopy Same procedure(s) as scheduled: Yes Surgeon: Ede Tucker Anesthesia Type: MAC +/- Procedure Notes Procedure in detail: Surgeon: Ede Tucker MD Anesthesia: Tori Yandel COCKTAIL WAITRESS Procedure: The patient was brought to the endoscopy suite, placed in left lateral decubitus position. The patient was connected to monitoring devices. A time-out was performed. Sedation was administered. Once the patient was adequately sedated, a digital rectal exam was performed and was normal. The scope was then inserted and advanced to the cecum where the appendiceal orifice was identified and photographed. The scope was then slowly withdrawn over greater than 6 minutes. The mucosa was thoroughly inspected. The terminal ileum was intubated and no abnormalities were seen. Random biopsies were taken from the terminal ileal mucosa with cold forceps. There was [id number] inflammation throughout the colon. Random biopsies were taken from the cecum, ascending colon, transverse colon, descending colon, sigmoid colon and rectum with cold forceps. There was a 5 mm polyp in the ascending colon and another in the transverse colon removed with a cold snare. The scope was retroflexed in the rectum. No other abnormalities were seen. The scope was straightened and removed. The patient was awakened and brought to recovery. Scope withdrawal time: 24 minutes Sedation time: 29 minute Findings: 5 mm polyps in the ascending and transverse colon, mild to moderate colitis throughout the colon Estimated Blood Loss: 9 Complications: none Post-procedure Disposition: PACU
[2025-09-02 10:20] VITALS: BP 145/94; PULSE 89; RESP 25; O2SAT 96
== END 2025-09-02 10:36 | disposition home or self-care (01) ==
PROVIDERS: PCP Family Medicine; Referring Provider Family Medicine; Visit Provider Surgery
PROC: 0DJD8ZZ Inspection of Lower Intestinal Tract, Via Natural or Artificial Opening Endoscopic (ICD-10-PCS; CPT 45378; principal; 2025-09-02 09:45)
DX: Z12.11 Encounter for screening for malignant neoplasm of colon (principal); Z87.891 Personal history of nicotine dependence; K52.9 Noninfective gastroenteritis and colitis, unspecified; K51.40 Inflammatory polyps of colon without complications
CPT/HCPCS: 45385; 45380; J2704; J7120